=== PATIENT | male | born 1980 | race Caucasian/White ===

== ENCOUNTER 2023-08-05 15:15 | Inpatient (IN) | payer OTHER, SELFPAY ==
--- NOTE | ~2023-08-05 | XR_ITS ---
XR chest 1V portable DATE: 08/16/2023 05:42 INDICATION: Respiratory failure, mechanical ventilation TECHNIQUE: Portable AP chest on 08/16/2023 at 0516 hours COMPARISON: 08/15/2023 portable AP chest at 0536 hours FINDINGS: ET tube in satisfactory position 3.5 cm above lashaun. NG tube in stomach. Right upper extremity PIC catheter tip is situated in the superior vena cava near the superior cavoat rial junction. Right thoracostomy tube. No pneumothorax is evident. Patchy infiltrate of left upper and particularly left mid and lower lung zones. Mild infiltrate or at electasis in the right lower lung. No pleural effusion. IMPRESSION: Increased left lower lung infiltrate and mild infiltrate or atelectasis in the right lowe r lung since 08/15/2023 Reviewed, dictated and finalized at location A. IMPRESSION: Increased left lower lung infiltrate and mild infiltrate or atelect asis in the right lower lung since 08/15/2023
--- NOTE | ~2023-08-05 | XR_ITS ---
EXAMINATION: XR chest 1V portable INDICATION: Respiratory failure TECHNIQUE: Portable AP chest at 0519 hours COMPARISON: 08/09/2023 FINDINGS: The endotracheal tube ends approximately 4.1 cm above the lashaun. The nasogastric tube is f ollowed as far as the stomach. Its tip is beyond the inferior margin of the radiograph. A right upper extremity PICC ends with its tip in the distal superior vena cava. A right chest tube is unchanged i n position. No pleural effusion or pneumothorax. Diffuse interstitial and airspace opacities persist throughout all lung zones with slight improvement. The cardiomediastinal silhouette is stable. IMPRESSION: 1. Diffuse lung disease with slight interval improvement, consistent with pneumonia and/or pulmonary edema. Reviewed, dictated and finalized at location F. IMPRESSION: 1. Diffuse lung disease with slight interval improvement, consistent with pneum onia and/or pulmonary edema.
--- NOTE | ~2023-08-05 | XR_ITS ---
Portable chest x-ray Comparison: 08/14/2023 Clinical History: Respiratory failure Findings: Endotracheal tube, NG tube, right-sided PICC line, and right-sided chest tube are in place . No pneumothorax. There is stable left basilar consolidation. Cardiomediastinal silhouette is stabl e. Bones and soft tissues are unremarkable. Impression: Stable support tubes. No pneumothorax. Stable left basilar consolidation, suspicious for pneumonia. Reviewed, dictated and finalized at location . Impression: Stable support tubes. No pneumothorax. Stable left basilar consolidation, suspicious for pneumonia.
--- NOTE | ~2023-08-05 | XR_ITS ---
EXAMINATION: XR chest 1V portable DATE: 08/19/2023 05:54 INDICATION: Pneumothorax. TECHNIQUE: A single frontal view of the chest was obtained. COMPARISON: Chest single view 08/18/2023 FINDINGS: There are airspace opacities in the mid and lower lung zones. No pleural effusion or pneumo thorax. The heart size is normal. A right upper extremity peripherally inserted central venous cathet er (PICC) is seen with tip at the superior cavoatrial junction. There is a right-sided chest tube in expected position. IMPRESSION: 1. Stable airspace opacities in the mid and lower lung zones, consistent with pneumonia. 2. Right-sided chest tube in expected position. No pneumothorax. Reviewed, dictated and finalized at location A. IMPRESSION: 1. Stable airspace opacities in the mid and lower lung zones, consistent with p neumonia. 2. Right-sided chest tube in expected position. No pneumothorax.
--- NOTE | ~2023-08-05 | XR_ITS ---
EXAMINATION: XR chest 1V portable DATE: 08/11/2023 06:15 INDICATION: Respiratory failure. TECHNIQUE: A single frontal view of the chest was obtained. COMPARISON: Chest single view 08/10/2023, chest CT 08/10/2023 FINDINGS: There are airspace and interstitial opacities in all lung zones bilaterally. No pleural eff usion or pneumothorax. The heart size is normal. The endotracheal tube tip is 4.6 cm above the lashaun . A right upper extremity peripherally inserted central venous catheter (PICC) is seen with tip at th e superior cavoatrial junction. A right-sided chest tube is noted. IMPRESSION: 1. Stable diffuse lung disease, consistent with pulmonary edema versus pneumonia. Reviewed, dictated and finalized at location E. IMPRESSION: 1. Stable diffuse lung disease, consistent with pulmonary edema versus pneumoni a.
--- NOTE | ~2023-08-05 | XR_ITS ---
EXAMINATION: XR chest ET placement INDICATION: Respiratory failure TECHNIQUE: Portable AP chest at 0425 hours COMPARISON: 08/08/2023 FINDINGS: An endotracheal tube has been inserted which ends approximately 3.9 cm above the lashaun. A small right apical pneumothorax has developed. The nasogastric tube is followed as far as the stomach . Its tip is beyond the inferior margin of the radiograph. A right upper extremity PICC ends with its tip in the midsuperior vena cava. Diffuse interstitial and airspace opacities persist throughout all lung zones without significant change. There is no pleural effusion. IMPRESSION: 1. Small right apical pneumothorax, new. These findings were discussed with Lb Galindo RN in the ICU at 0727 hours on 08/09/2023. 2. Support tubes in adequate position. 3. Stable diffuse lung disease, consistent with pneumonia and/or pulmonary edema. Reviewed, dictated and finalized at location F. IMPRESSION: 1. Small right apical pneumothorax, new. These findings were discussed with Darío Galindo RN in the ICU at 0727 hours on 08/09/2023. 2. Support tubes in adequate position. 3. Stable diffuse lung disease, consistent with pneumonia and/or pulmonary adelitakevyn chen
--- NOTE | ~2023-08-05 | XR_ITS ---
EXAMINATION: XR chest-chest tube insert/pos INDICATION: Chest tube placement TECHNIQUE: Portable AP chest at 0915 hours COMPARISON: 0425 hours FINDINGS: A right-sided chest tube has been inserted. The previously described right pneumothorax has nearly completely resolved. There is a minute persistent apical pneumothorax. The endotracheal tube ends approximately 3.5 cm above the lashaun. The nasogastric tube is followed as far as the stomach. I ts tip is beyond the inferior margin of the radiograph. A right upper extremity PICC ends with its ti p in the distal superior vena cava. Diffuse interstitial and airspace opacities persist without signi ficant change. IMPRESSION: 1. Right-sided chest tube inserted with near complete resolution of previously described pneumothorax . 2. Stable diffuse lung disease, consistent with pneumonia and/or pulmonary edema. Reviewed, dictated and finalized at location F. IMPRESSION: 1. Right-sided chest tube inserted with near complete resolution of previously described pneumothorax. 2. Stable diffuse lung disease, consistent with pneumonia and/or pulmonary adelita a.
--- NOTE | ~2023-08-05 | XR_ITS ---
EXAMINATION: XR chest PICC line Exam Date/Time: 08/05/2023 18:55 CDT HISTORY: PICC line Comparison: Same date at 5:16 PM. FINDINGS/IMPRESSION: New right upper extremity PICC terminating in the distal SVC. Unchanged pulmonary opacities. Reviewed, dictated and finalized at location K.
--- NOTE | ~2023-08-05 | XR_ITS ---
EXAMINATION: XR chest 1V portable Exam Date/Time: 08/05/2023 17:15 CDT HISTORY: hypoxia, covid exposure Comparison: 04/05/2010. RESULT: Lines, tubes, and devices: None. Lungs and pleura: Severe patchy and basilar airspace disease affecting the entirety of the left lung . Mild patchy airspace opacities scattered in the right lung. Minimal left costophrenic angle bluntin g. Cardiomediastinal silhouette: Stable. Other: No acute osseous or upper abdominal finding. IMPRESSION: Bilateral airspace disease, severe in the left lung, may represent asymmetric edema or multifocal inf ection. Reviewed, dictated and finalized at location K. IMPRESSION: Bilateral airspace disease, severe in the left lung, may represent asymmetric e donald or multifocal infection.
--- NOTE | ~2023-08-05 | XR_ITS ---
Portable chest x-ray Comparison: 08/12/2023 Clinical History: Respiratory failure Findings: Endotracheal tube, NG tube, and right-sided PICC line are in place. Right-sided chest tube also in place. No definite pneumothorax seen. There is patchy left basilar airspace disease. Cardio mediastinal silhouette is stable. Bones and soft tissues are unremarkable. Impression: Support tubes, as above. No definite pneumothorax. Patchy left basilar airspace disease. Correlate for atelectasis versus pneumonia. Reviewed, dictated and finalized at [facility] [place]. Impression: Support tubes, as above. No definite pneumothorax. Patchy left basilar airspace disease. Correlate for atelectasis versus pneumoni a.
--- NOTE | ~2023-08-05 | XR_ITS ---
Portable chest x-ray Comparison: 08/11/2023 Clinical History: Respiratory failure Findings: Endotracheal tube, NG tube, and right-sided PICC line are in satisfactory positions. Since hazy pulmonary disease is again present. No definite pleural effusion. Right-sided chest tube in darrion ce, with probable minimal right apical pneumothorax. Cardiomediastinal silhouette is stable. Bones a nd soft tissues are unremarkable. Impression: Support tubes, as above. Minimal right apical pneumothorax. Moderate probable pulmonary edema pattern. Reviewed, dictated and finalized at location M. Impression: Support tubes, as above. Minimal right apical pneumothorax. Moderate probable pulmonary edema pattern.
--- NOTE | ~2023-08-05 | XR_ITS ---
EXAMINATION: [id number] INDICATION: OG tube placement TECHNIQUE: Upright view of the abdomen is obtained. COMPARISON: None available FINDINGS: The OG tube ends with its tip in the stomach. The proximal side port appears to be just bey ond the gastroesophageal junction. A small left pneumothorax is noted (result has been communicated t o the ICU). There is diffuse lung disease of the visualized lung bases. IMPRESSION: 1. OG tube with its tip in the stomach. Proximal side port appears to be just beyond the gastroesopha geal junction. 2. Small right pneumothorax, result previously communicated. Reviewed, dictated and finalized at location F. IMPRESSION: 1. OG tube with its tip in the stomach. Proximal side port appears to be just b eyond the gastroesophageal junction. 2. Small right pneumothorax, result previously communicated.
--- NOTE | ~2023-08-05 | XR_ITS ---
EXAMINATION: XR chest 1V portable INDICATION: Tachypnea and shortness of breath TECHNIQUE: Portable AP chest at 1954 hours COMPARISON: 08/05/2023 FINDINGS: There are diffuse interstitial and airspace opacities with interval worsening, particularly in the right lung. No pleural effusion or pneumothorax. A right upper extremity PICC ends with its t ip in the distal superior vena cava. The cardiomediastinal silhouette is normal. IMPRESSION: 1. Diffuse lung disease with interval worsening, consistent with pneumonia and/or pulmonary pulmonary edema. Reviewed, dictated and finalized at location F. IMPRESSION: 1. Diffuse lung disease with interval worsening, consistent with pneumonia and/ or pulmonary pulmonary edema.
--- NOTE | ~2023-08-05 | XR_ITS ---
Portable chest x-ray Comparison: 08/13/2023 Clinical History: Respiratory failure Findings: Endotracheal tube, NG tube, right-sided PICC line, and right-sided chest tube are in place . Suspected tiny right apical pneumothorax present. There is persistent patchy left basilar airspace disease. Cardiomediastinal silhouette is stable. Bones and soft tissues are unremarkable. Impression: Support tubes, as above. Probable tiny right apical pneumothorax. Persistent patchy left basilar airspace disease. Correlate for atelectasis or pneumonia. Reviewed, dictated and finalized at location . Impression: Support tubes, as above. Probable tiny right apical pneumothorax. Persistent patchy left basilar airspace disease. Correlate for atelectasis or p neumonia.
--- NOTE | ~2023-08-05 | XR_ITS ---
XR chest 1V portable 08/08/2023 12:21 Indication: Shortness of breath. Covid positive. Procedure: AP portable chest Comparison: Comparison to multiple prior studies sequentially, with oldest reviewed study dated 04/05. Findings: PICC line tip in the SVC. Heart size normal. Progression of extensive bilateral airspace di sease which may represent pneumonia and/or edema. No significant effusion or pneumothorax. Impression: 1: Progression of diffuse bilateral airspace disease which may represent pneumonia and/or edema. Reviewed, dictated and finalized at location B. Impression: 1: Progression of diffuse bilateral airspace disease which may represent pneumo yola and/or edema.
--- NOTE | ~2023-08-05 | CT_ITS ---
EXAMINATION: CT chest abdomen pelvis wo con DATE: 08/10/2023 09:01 INDICATION: Bacteremia, Back pain . TECHNIQUE: Computed tomography (CT) of the chest, abdomen, and pelvis was performed with 100 mL Omnip aque-350 intravenous contrast. Automated exposure control and iterative reconstruction technique were employed. The dose-length product was 1791.03 mGy-cm. COMPARISON: None FINDINGS: CHEST: Thoracic aorta: No significant dilation or calcification. Lung parenchyma and airways: Diffuse groundglass opacities with scattered areas of somewhat centraliz ed consolidation. Patchy consolidation along the tract of the right chest tube may represent pulmonar y hemorrhage. Thoracic inlet, axillae and chest wall: No thyroid or soft tissue mass. No axillary lymphadenopathy. Endotracheal tube terminating in the mid thoracic trachea. NG tube tip and side port within the stoma ch. Right chest tube, tip near the right apex, with intrathoracic side ports. Right upper extremity P ICC terminates in the SVC. Mediastinum: Lymphadenopathy. Heart and pericardium: Normal heart size. No pericardial effusion. Coronary artery calcifications: . Pleura: Small right pneumothorax. Thoracic bones: No acute osseous finding in the chest. ABDOMEN/PELVIS: Liver: Enlarged. Biliary/Gallbladder: Gallbladder is normal. No bile duct dilation. Pancreas: No mass or duct dilation. Spleen: Enlarged. Focal region of anterior hypodensity. Adrenals:No mass. Kidneys: No suspicious mass, obstructing stone, or hydronephrosis. Bilateral perinephric stranding, i ncreased. GI tract: No small or large bowel dilation. Normal appendix. Mild diverticulosis without diverticulit is. Mesentery/Peritoneum: No ascites, mass, or free air. Retroperitoneum: No mass mild atherosclerotic abdominal aortic and/or arterial calcifications. Pelvis: Harry catheter, balloon is intraluminal. Urinary bladder distention Soft Tissues: Mild body wall edema Abdominopelvic bones: No acute osseous finding in the abdomen/pelvis. IMPRESSION: Diffuse bilateral pulmonary opacities likely representing pulmonary edema overlying somewhat improvin g infectious changes. Changes of ARDS should also be considered in the differential. Small right pneumothorax. Hepatosplenomegaly. Splenic infarct. Increased bilateral perinephric stranding, consider polyp nephritis in the differential. Correlate wi urinalysis. Urinary bladder distention, recommend confirming normal Harry catheter function. Reviewed, dictated and finalized at location K. IMPRESSION: Diffuse bilateral pulmonary opacities likely representing pulmonary edema overl marjorie somewhat improving infectious changes. Changes of ARDS should also be cons idered in the differential. Small right pneumothorax. Hepatosplenomegaly. Splenic infarct. Increased bilateral perinephric stranding, consider polyp nephritis in the diff erential. Correlate with urinalysis. Urinary bladder distention, recommend confirming normal Harry catheter function .
--- NOTE | ~2023-08-05 | XR_ITS ---
XR chest 1V portable DATE: 08/17/2023 05:42 INDICATION: Respiratory failure. Pneumonia. TECHNIQUE: Portable AP chest on 08/17/2023 0529 hours COMPARISON: 08/16/2023 portable AP chest at 0516 hours FINDINGS: No similar change of prominent left lung infiltrate involving particularly left mid and low er lung zones in addition to mild right lower lung infiltrate or atelectasis since 08/16/2023. Right thoracostomy tube is unchanged in position. No pneumothorax is evident. ET and NG tubes in satisfactory position. Right upper extremity PIC catheter tip situated near the valenzuela perior cavoatrial junction. IMPRESSION: Bilateral infiltrates and/atelectasis, left greater than right, without significant aiken e since 08/16/2023 Reviewed, dictated and finalized at location A. IMPRESSION: Bilateral infiltrates and/atelectasis, left greater than right, wit elviraut significant change since 08/16/2023
--- NOTE | ~2023-08-05 | CT_ITS ---
EXAMINATION: CTA chest PE protocol DATE: 08/05/2023 22:22 INDICATION: hypoxia, COVID TECHNIQUE: Computed tomography angiography (CTA) of the chest was performed with 200 mL Omnipaque-350 intravenous contrast timed to evaluate the pulmonary arteries. Exam repeated to obtain better pulmon anca artery opacification. Coronal maximum intensity projection 3D-reconstructions were created by the technologist. The dose-length product (DLP) was 1554.98 mGy-cm. Automated exposure control and itera tive reconstruction technique were employed. COMPARISON: X-ray chest same date. FINDINGS: Lung parenchyma and airways: Multifocal groundglass and consolidative opacities affecting all lobes, most severe in the left upper and lower lobes. Several of the opacifications in the right lung displa y a partial halo or reversed halo sign. Pleura: Small volume left pleural fluid collection. Thoracic inlet, axillae and chest wall: Bilateral symmetric gynecomastia. Thoracic aorta: Normal. Mediastinum: Enlarged mediastinal lymph nodes. Heart and pericardium: Normal. Coronary artery calcifications: Absent. Upper abdomen: Hepatomegaly with steatosis. Splenomegaly. Triangular, pleural-based area of hypoperfu jonna in the anterior spleen. Prominent, but not pathologically enlarged upper abdominal lymph nodes. Bones: No acute osseous finding. Pulmonary arteries: Study quality: Adequate. No pulmonary emboli detected. IMPRESSION: No CT evidence of acute pulmonary embolus. Severe multifocal pneumonia, with findings that can be seen with atypical/viral agents. Mediastinal l ymphadenopathy. Trace left pleural effusion. Hepatomegaly with steatosis. Splenomegaly with a small splenic infarct. Bilateral symmetric gynecomastia. Reviewed, dictated and finalized at location K. IMPRESSION: No CT evidence of acute pulmonary embolus. Severe multifocal pneumonia, with findings that can be seen with atypical/viral agents. Mediastinal lymphadenopathy. Trace left pleural effusion. Hepatomegaly with steatosis. Splenomegaly with a small splenic infarct. Bilateral symmetric gynecomastia.
--- NOTE | ~2023-08-05 | XR_ITS ---
EXAMINATION: XR chest 1V portable DATE: 08/18/2023 05:53 INDICATION: Respiratory failure. Pneumonia. TECHNIQUE: A single frontal view of the chest was obtained. COMPARISON: Chest single view 08/17/2023, chest CT 08/10/2023 FINDINGS: There are airspace opacities in the mid and lower lung zones. No pleural effusion or pneumo thorax. The heart size is normal. There is a right-sided chest tube in expected position. A right upp er extremity peripherally inserted central venous catheter (PICC) is seen with tip at the superior ca voatrial junction. IMPRESSION: 1. Stable airspace opacities in the mid and lower lung zones, consistent with pneumonia. Reviewed, dictated and finalized at location A. IMPRESSION: 1. Stable airspace opacities in the mid and lower lung zones, consistent with p neumonia.
[2023-08-05 15:18] VITALS: BP 118/59; PULSE 117; RESP 20; TEMP 36.8; O2SAT 94
[2023-08-05 16:00] VITALS: BP 142/88; PULSE 115; RESP 20; TEMP 36.8; O2SAT 94
--- NOTE | 2023-08-05 16:37 | ECG_ITS ---
Measurements Intervals [place] Rate: 114 P: 46 MD: 117 QRS: 28 QRSD: 108 T: 51 QT: 329 QTc: 453 Interpretive Statements SINUS TACHYCARDIA WITH SHORT MD INTERVAL ABNORMAL ECG NO PREVIOUS ECG AVAILABLE FOR COMPARISON Electronically Signed On 08-05-2023 20:14:46 CDT by Dewayne Osuna D.O.
--- NOTE | 2023-08-05 16:45 | ED.SOB ---
HPI - SOB/Dyspnea General Chief Complaint: Shortness of Breath/Dyspnea Stated Complaint: SOB-covid exposure Time Seen by Provider: 08/05/23 16:16 Source: patient, EMS, RN notes reviewed and old records reviewed Mode of arrival: EMS Limitations: no limitations History of Present Illness HPI Narrative: This is a 42 year old male with history of DM who presents for evaluation of shortness of breath. PAtient states that his family member tested positive for COVID 1. 5 weeks ago. He states he developed sympoms on Friday or Friday. He states he had headache, decrease tasted and a cough. He reports his headache resolved but he developed shortness of breath 2 days ago. He denies nausea, vomiting chest pain or fever. He reports diarrhea today. He reports history of IV drug use but he states he has been clean for 1 year. He also notes wounds to his legs that have been present for 6 months. Related Data Home Medications Medication Instructions Recorded Confirmed No Home Medications 08/05/23 08/05/23 Allergies Allergy/AdvReac Type Severity Reaction Status Date / Time No Known Allergies Allergy Verified 08/05/23 15:28 Review of Systems Constitutional: Constitutional: Denies weakness ENT: Reports nasal congestion and Reports sore throat Cardiovascular: Cardiovascular: Denies syncope, Denies rapid heart rate, Denies irregular heart rhythm, Denies leg edema and Reports dyspnea Respiratory: Respiratory: Reports chest congestion, Reports cough, Denies hemoptysis, Denies excessive phlegm production and Reports dyspnea Gastrointestinal: Gastrointestinal: Denies abdominal pain, Denies hematochezia, Reports diarrhea and Denies vomiting Genitourinary: Genitourinary: Denies hematuria, Denies dysuria, Denies penile discharge and Denies testicular pain Musculoskeletal: Musculoskeletal: Denies joint swelling, Denies loss of height and Denies muscle weakness Neurologic: Denies syncope, Denies focal weakness and Denies weakness PMFSH Past Medical History Medical History (Updated 08/05/23 @ 23:27 by Sarah Grimes MD) Type 2 diabetes mellitus Social History Social History (Updated 08/05/23 @ 16:46 by Sarah Grimes MD) Smoking status: Current every day smoker Tobacco type: e-cigarettes/vaping Alcohol intake: former Drinks per week: 3 Substance use: former Substance use type: does not use, former substance user and heroin Other substance usage details: quit a year ago Last use: a year ago Lack of Transportation: No Lack of Food: Never True Current Housing: I Have Housing Concerned About Future Housing: No Difficulty Paying Gas/Electric Bills: No Difficulty Paying for Meds: No Currently Unemployed: No Education: High School Diploma/GED Difficulty w/ Childcare or Family Care: No Spiritual care concerns: No Exam Const: General: no acute distress and alert Nutritional Appearance: well nourished Orientation/consciousness: patient oriented x3 HENMT: Head: normal to inspection Face and sinus: normal facial exam Mouth: Yes Normal oral and palatal mucosa present, Yes lip normal and Yes moist mucous membranes Throat: posterior oropharynx normal and uvula midline Eyes: Pupils: Equal, round and reactive pupils present EOM: EOMs intact bilaterally Neck: Neck: normal visual inspection Chest: Chest palpation & inspection: normal inspection of the chest Resp: Effort & Inspection: normal respiratory effort Auscultation: rhonchi throughout Cardio: Rate: tachycardic Rhythm: regular rhythm Heart sounds: no murmurs GI: GI Palp: Yes Soft to palpation, No Tenderness to palpation present (GI), No Guarding due to palpation present (GI) and No Rigid due to palpation Auscultation: normal bowel sounds Skin: Wounds: wounds noted (bilateral lower leg ulcerations) Neuro: General: patient oriented x3, moves all extremities and CN's II-XI intact bilaterally Speech: normal speech Psych: Me
[2023-08-05 16:50] LABS: Basophils Percent Auto 0.2 % (0.2-1.2); Eosinophils Percent Auto 0.3 % (0-4.4); Hematocrit 35.1 % (42.0-52.0); Hemoglobin 10.5 g/dL (14.0-18.0); Immature Granulocyte Absolute 0.17 K/mm3 (0.00-0.031); Lymphocytes Absolute Auto 0.59 K/mm3 (0.9-3.2); Lymphocytes Percent Auto 6.9 % (18.3-44.2); Mean Corpuscular HGB Conc 29.9 g/dl (32-36); Mean Corpuscular Hemoglobin 24.9 pg (26-34); Mean Corpuscular Volume 83.2 fl (80-100); Mean Platelet Volume 11.5 fl (7.4-10.4); Monocytes Absolute Auto 0.3 K/mm3 (0.1-0.6); Monocytes Percent Auto 3.4 % (2.6-8.5); Neutrophils Absolute Auto 7.5 K/mm3 (1.3-6.7); Neutrophils Percent Auto 87.2 % (45.5-73.1); Nucleated Red Blood Cells Perc 0.3 % (0.0-0.2); Platelet Count Result 177 k/mm3 (150-375); Red Blood Count 4.22 M/mm3 (4.6-6.20); Red Cell Distribution Width 15.1 % (11.5-14.5); White Blood Count 8.6 K/mm3 (4.5-10.0)
[2023-08-05 17:03] LABS: Prothrombin Time 13.6 Seconds (11.1-14.7)
[2023-08-05 17:06] LABS: Albumin Level 3.1 g/dL (3.5-5.1); Alkaline Phosphatase 164 U/L (38-126); Anion Gap 19 mmol/L (8-16); Aspartate Amino Transferase 42 U/L (17-59); Bilirubin,Total 4.3 mg/dL (0.2-1.3); Blood Urea Nitrogen 38 mg/dL (9-20); Calcium 9.1 mg/dL (8.4-10.2); Carbon Dioxide 15 mmol/L (22-30); Chloride 101 mmol/L (98-107); Estimated CRCL calculation 73 ml/min; Estimated Glomerular Filt Rate 56; Glucose 103 mg/dL (65-110); Potassium 3.9 mmol/L (3.4-5.0); Sodium 135 mmol/L (137-145)
[2023-08-05 17:10] LABS: Alanine Aminotransferase 33 U/L (6-50); NT Pro B Type Natriuretic Pept 3610 pg/mL (19.9-100)
[2023-08-05 17:15] LABS: Alveolar/Arterial O2 Gradient 95.4 mmHg; Base Excess ABG -7.8 mEq/l (+/-2.0); CRP 19.5 mg/dL (<1.0); Carboxyhemoglobin 0.9 % THb (0-2.0); Fractional Inspired Oxygen 28 %; HCO3 ABG 17.4 mEq/l (22.0-26.0); Methemoglobin ABG 0.2 %THb (0-1.5); Oxygen Content ABG 13.3 %vol (16.0-22.0); Oxygen Saturation ABG 90.8 % (95.0-100.0); Oxyhemoglobin 89.1 % THb (90.0-100.0); PCO2 ABG 34.6 mmHg (35.0-45.0); PO2 ABG 63.4 mmHg (80.0-100.0); PO2 FiO2 Ratio Arterial Blood 2.26 %; Reduced Hemoglobin 9.8 %THb (0-5.0); Total Hemoglobin 10.6 g/dL (12.0-18.0)
[2023-08-05 17:19] LABS: Influenza A QL RT-PCR Negative (Negative); Influenza B QL RT-PCR Negative (Negative); SARS-CoV-2 RNA PCR Positive (Negative)
[2023-08-05 17:19] LABS: Anisocytosis 1+ (NORMAL); Burr Cells 1+ (NORMAL); Large Platelets Present; Microcytosis 1+ (NORMAL); Ovalocytes 1+ (NORMAL); Platelet Estimate Adequate (Adequate); Poikilocytosis 1+ (NORMAL); Schistocytes None Seen (NORMAL)
[2023-08-05 17:31] LABS: Device NASAL CANNULA; Modified Allen's Test Pass; Site Drawn RIGHT RADIAL
--- NOTE | 2023-08-05 18:10 | PC.NURSE ---
multiple IV unsuccessful IV attempts by nursing. Charge nurse called [facility] to play PICC. Consent and PICC line lit at pt room
[2023-08-05] MEDS: LIDOCAINE HCL 1% PF INJ 5 ML VIAL INFILTRATE (19:04)
[2023-08-05] MEDS: REMDESIVIR 200 MG/NS 250 ML 200 MG/250 ML BAG 250 MG IVPB (19:18)
[2023-08-05 19:22] VITALS: BP 126/70; PULSE 116; RESP 20; O2SAT 92
[2023-08-05 20:10] VITALS: BP 134/68; PULSE 112; RESP 18; O2SAT 92
--- NOTE | 2023-08-05 21:05 | PM.IMHP ---
H&P: HPI History of Present Illness Date/Time: 08/05/23 19:00 Chief Complaint: Shortness of breath. Narrative: This is a pleasant 42-year-old male with type 2 diabetes mellitus and history of MRSA skin infection who presented to the emergency department via EMS for evaluation of shortness of breath. The patient provides the following history. He has not felt well for approximately 1 week with upper respiratory symptoms to include cough, shortness of breath, decreased appetite, sweats, and weakness. The last couple of days he has become increasingly short breath and today felt as though he could not feel his lungs up and he called 911. On EMS arrival his SpO2 was 85% on room air. He was placed on oxygen and given a nebulizer treatment en route to the hospital with some improvement in his symptoms. He was afebrile on arrival to the ED. Blood pressures have been stable. He has been persistently in a sinus tachycardia in the 1 teens. SARS-CoV-2 by PCR was positive. Labs were significant for a WBC count of 8.6, hemoglobin 10.5, platelet 177, sodium 135, carbon dioxide 15, anion gap 19, BUN 38, creatinine 0.40, glucose 103, total bilirubin 4.3, AST 42, alkaline phosphatase 164, CRP 19.5, proBNP 3610. Chest x-ray showed bilateral airspace disease, severe in left lung which may represent asymmetric edema or multifocal infection. He is being admitted in this setting for treatment of COVID pneumonia. Review of Systems Review of Systems: Twelve systems were reviewed. No significant sore throat. Mild decrease in taste. No exertional chest pain or pleuritic pain. He does not feel his heart racing. He denies lightheadedness and dizziness. No vomiting or diarrhea. He has mild edema in his legs sometimes which is unchanged. He denies calf pain. No history of venous thromboembolism. He believes his diabetes is fairly well controlled. Except as documented, all other systems were reviewed and are negative. [facility] Past Medical History Medical History Type 2 diabetes mellitus Family History Family History Mother Father Social History Social History (Updated 08/06/23 @ 15:48 by Tram Hester PA-C) Social History: Surrogate medical decision maker: Fatou Luna (spouse) or Ne Rodriguez (mother). Code status: Full code. Smoking status: Current every day smoker Tobacco type: e-cigarettes/vaping Alcohol intake: former Drinks per week: 3 Substance use: former Substance use type: does not use, former substance user and heroin Other substance usage details: quit a year ago Last use: a year ago Lack of Transportation: No Lack of Food: Never True Current Housing: I Have Housing Concerned About Future Housing: No Difficulty Paying Gas/Electric Bills: No Difficulty Paying for Meds: No Currently Unemployed: No Education: High School Diploma/GED Difficulty w/ Childcare or Family Care: No Spiritual care concerns: No Meds Home Medications and Allergies Home Medications Medication Instructions Recorded Confirmed Type No Home Medications 08/05/23 08/05/23 History Allergies Allergy/AdvReac Type Severity Reaction Status Date / Time No Known Allergies Allergy Verified 08/05/23 15:28 Vital Signs Vital Signs - 24 hr 08/05/23 15:18 08/05/23 16:00 08/05/23 19:22 Temperature 98.2 F 98.3 F Pulse Rate 117 H 115 H 116 H Respiratory Rate 20 20 20 Blood Pressure 118/59 L 142/88 H 126/70 Pulse Oximetry 94 94 92 Oxygen Delivery Nasal Cannula Nasal Cannula Oxygen Flow Rate 4 3 08/05/23 20:10 Temperature Pulse Rate 112 H Respiratory Rate 18 Blood Pressure 134/68 Pulse Oximetry 92 Oxygen Delivery Oxygen Flow Rate Exam Narrative: General: Moderately ill-appearing male in the semi-Leija position in bed. Weight: 95.25 kg. BMI: 30.1. HEENT: PE
[2023-08-05 21:13] LABS: Lactic Acid Reflex 10.5 mmol/L (0.7-2.0)
[2023-08-05 21:21] LABS: Alanine Aminotransferase 32 U/L (6-50)
[2023-08-05 21:30] VITALS: BP 161/79; PULSE 112; RESP 24; TEMP 36.2; O2SAT 93; BMI 30.7
--- NOTE | 2023-08-05 21:51 | ADMGEN ---
This patient, Ottoniel Luna, was admitted to IMU Room 202-. Patient/family oriented to hospital policies and general routines including ID bracelet, bed and alarms, visiting hours, pain management, procedures, bathroom and other care routines, personal items, smoking policy, room service/diet, and visiting hours. Information on how to activate the Rapid Response Team has been discussed. Patient/Family are encouraged to report perceived risks to care and to ask questions if they do not understand what they are told or what they should do.
[2023-08-05] MEDS: SODIUM CHLORIDE 0.9% IV 1,000 ML 999 ML IV CONT (21:52)
[2023-08-05 22:40] VITALS: BMI 30.7
[2023-08-05] MEDS: SODIUM CHLORIDE 0.9% IV 1,000 ML 125 ML IV CONT (23:51)
[2023-08-06] VITALS (25 sets, daily range): BP systolic 134–173; BP diastolic 69–91; PULSE 96–121; RESP 19–22; TEMP 36.1–36.8; O2SAT 93–100
[2023-08-06] LABS: Reflex Lactic Acid Yes or No Add Lactic
[2023-08-06 00:58] LABS: Lactic Acid Reflex 9.1 mmol/L (0.7-2.0)
[2023-08-06] MEDS: LACTATED RINGERS 1,000 ML 999 ML IV CONT (01:19)
[2023-08-06] MEDS: AZITHROMYCIN 500 MG/NS 250 ML 500 MG/250 ML BAG 250 MG IVPB ×2 (01:21→22:27)
[2023-08-06 01:28] LABS: Iron 50 ug/dL (49-181)
[2023-08-06 01:30] LABS: Hemoglobin A1C 7.4 % (<5.7)
[2023-08-06 01:32] LABS: Beta-Hydroxybutyrate/Acetoacetate 0.29 mmol/L (0.02-0.27)
[2023-08-06 01:39] LABS: Anion Gap 19 mmol/L (8-16); Blood Urea Nitrogen 35 mg/dL (9-20); Calcium 8.9 mg/dL (8.4-10.2); Carbon Dioxide 16 mmol/L (22-30); Chloride 102 mmol/L (98-107); Estimated CRCL calculation 69 ml/min; Estimated Glomerular Filt Rate 52; Glucose 86 mg/dL (65-110); Potassium 4.2 mmol/L (3.4-5.0); Sodium 137 mmol/L (137-145)
[2023-08-06 01:41] LABS: Percent Iron Saturation 21 % (20-50)
[2023-08-06 02:16] LABS: Vitamin B12 > 1000.0 pg/mL (239-931)
[2023-08-06] MEDS: VANCOMYCIN 1,250 MG/NS 250 ML 1,250 MG/250 ML BAG 166.67 MG IVPB ×2 (02:48→03:13)
[2023-08-06] MEDS: ALBUTEROL SULFATE NEB 2.5 MG/3 ML INH INHALATION ×4 (03:06→20:33)
[2023-08-06] MEDS: IPRATROPIUM BR 0.02% INH SOLN 0.5 MG/2.5 ML VIAL INHALATION ×4 (03:06→20:34)
[2023-08-06] MEDS: CENTRAL LINE FLUSH 10 ML IV PUSH ×4 (03:12→23:39)
[2023-08-06 05:07] LABS: Folic Acid 6.4 ng/mL (2.76->20)
[2023-08-06 05:53] LABS: Appearance Urine Clear (Clear); Bacteria Urine None Seen /hpf; Bilirubin Urine 1+ (Negative); Blood Urine 2+ (Negative); Color Urine Dark Yellow (Yellow); Glucose Urine UA Negative (Negative); Ketones Urine Trace mg/dL (Negative); Leukocyte Esterase Ur Negative LEU/UL (Negative); Nitrate Urine Negative (Negative); Non Pathogenic Casts 0-2; Protein Urine 1+ mg/dL (Negative); RBC Urine 21-50 /hpf (0-2); Specific Grav Ur 1.051 (1.001-1.035); Squamous Epithelial Cell Urine None seen /hpf (Few); WBC Urine 0-5 /hpf
[2023-08-06 05:54] LABS: Add Urine Microscopic? YES
[2023-08-06 08:20] LABS: Glucose Point of Care 121 mg/dl (65-105)
[2023-08-06 08:47] LABS: Hematocrit 29.6 % (42.0-52.0); Hemoglobin 9.1 g/dL (14.0-18.0); Mean Corpuscular HGB Conc 30.7 g/dl (32-36); Mean Corpuscular Hemoglobin 26.1 pg (26-34); Mean Corpuscular Volume 85.1 fl (80-100); Mean Platelet Volume 11.1 fl (7.4-10.4); Platelet Count Result 153 k/mm3 (150-375); Red Blood Count 3.48 M/mm3 (4.6-6.20); Red Cell Distribution Width 15.5 % (11.5-14.5); White Blood Count 12.4 K/mm3 (4.5-10.0)
[2023-08-06 08:58] LABS: Alanine Aminotransferase 19 U/L (6-50); Albumin Level 2.7 g/dL (3.5-5.1); Alkaline Phosphatase 146 U/L (38-126); Anion Gap 13 mmol/L (8-16); Aspartate Amino Transferase 36 U/L (17-59); Bilirubin,Total 2.9 mg/dL (0.2-1.3); Blood Urea Nitrogen 33 mg/dL (9-20); Calcium 8.6 mg/dL (8.4-10.2); Carbon Dioxide 20 mmol/L (22-30); Chloride 102 mmol/L (98-107); Estimated CRCL calculation 74 ml/min; Estimated Glomerular Filt Rate 56; Glucose 127 mg/dL (65-110); INR 1.5; Potassium 4.2 mmol/L (3.4-5.0); Prothrombin Time 18.9 Seconds (11.1-14.7); Sodium 135 mmol/L (137-145)
[2023-08-06 09:06] LABS: Lactate Dehydrogenase 256 U/L (120-246)
[2023-08-06 09:08] LABS: Magnesium 1.8 mg/dL (1.6-2.3)
[2023-08-06 09:14] LABS: Band Neutrophils Percent 24 % (0-6); Basophils Absolute Manual 0.12 K/mm3 (0.0-0.1); Basophils Percent Manual 1 % (0-1); Lymphocytes Absolute Manual 0.49 K/mm3 (1.1-4.5); Lymphocytes Percent Manual 4 % (18-44); Monocytes Absolute Manual 0.12 K/mm3 (0.1-0.90); Monocytes Percent Manual 1 % (3-9); Neutrophils Absolute Manual 11.65 K/mm3 (1.3-6.7); Neutrophils Percent Manual 70 % (46-73); Total Cells Counted 100
[2023-08-06 09:15] LABS: Burr Cells 2+ (NORMAL); Platelet Estimate Adequate (Adequate); Schistocytes None Seen (NORMAL)
[2023-08-06 09:26] LABS: CRP 19.8 mg/dL (<1.0)
[2023-08-06] MEDS: ENOXAPARIN 40 MG/0.4 ML SYRINGE SUB-Q (10:03)
[2023-08-06] MEDS: DEXAMETHASONE 2 MG TABLET 6 MG PO (10:03)
[2023-08-06 11:59] LABS: Glucose Point of Care 143 mg/dl (65-105)
--- NOTE | 2023-08-06 12:45 | PM.IMPN ---
Progress Note: A&P Assessment and Plan (1) Sepsis: Code(s): A41.9 - Sepsis, unspecified organism Status: Acute Assessment and Plan: Treating for concomitant bacterial pneumonia as patient has signs of sepsis with elevated white blood cell count tachycardia fever tachypnea severely elevated lactic acid elevated bilirubin elevated CRP elevated LDH and elevated procalcitonin. Broad spectrum antibiotics on board with interval improvement. Blood cultures preliminarily growing Gram-positive cocci in chains after less than 24 hours. (2) Pneumonia due to COVID-19 virus: Code(s): U07.1 - COVID-19; J12.82 - Pneumonia due to coronavirus disease 2019 Status: Acute Assessment and Plan: Patient is on remdesivir and dexamethasone. Also treating for concomitant bacterial pneumonia as patient has signs of sepsis with elevated white blood cell count tachycardia fever tachypnea severely elevated lactic acid and elevated procalcitonin (3) Acute respiratory failure with hypoxia: Code(s): J96.01 - Acute respiratory failure with hypoxia Status: Acute Assessment and Plan: Patient requiring 7 liters/minute nasal cannula for oxygenation (4) Metabolic acidosis: Code(s): E87.20 - Acidosis, unspecified Status: Acute Assessment and Plan: Lactic acidosis due to sepsis (5) Renal insufficiency: Code(s): N28.9 - Disorder of kidney and ureter, unspecified Status: Acute Assessment and Plan: BUN 33, Cr 1.4, GFR 56--unknown baseline values (6) Type 2 diabetes mellitus: Code(s): E11.9 - Type 2 diabetes mellitus without complications Status: Acute Assessment and Plan: ACHS fingerstick glucose with supplemental insulin. Hgb A1c 7.4 (7) Normocytic anemia: Code(s): D64.9 - Anemia, unspecified Status: Acute Assessment and Plan: B12 is elevated, folate normal. Will add iron studies. Plan Remain in IMU on IV fluids until lactic acid normalizes Daily procalcitonin Iron Studies Repeat lactic acid now and in the morning with AM Daily labs Vancomycin dosing per Pharmacy Echo ordered due to sepsis and respiratory failure with hypoxia Time Spent With Patient Time with patient: 25 - 35 minutes Subjective Date/time seen: 08/06/23 12:45 Interval history: Patient was admitted to the hospital due to pneumonia with COVID low oxygen saturations. Patient requiring 7 liters/minute high-flow nasal cannula to maintain saturations. He reports that he had symptoms about week ago that improved then about the last 3 days has difficulty breathing increased severely. By the time he got here he was barely able to speak in between huffing and puffing. Patient found to be septic with elevated white blood cell count and lactic acid over 10. Procalcitonin was 13. Patient started on broad-spectrum antibiotics after blood cultures. Blood cultures are positive for Gram-positive cocci in chains. Review of Systems Review of Systems: All systems reviewed & are unremarkable except as noted in HPI and below Exam Narrative: General: Moderately ill-appearing male in the semi-Leija position in bed. HEENT: PERRL, EOMI. Sclera anicteric. Tacky mucous membranes. Neck: Supple. No JVD. Respiratory: Mild conversational dyspnea and tachypnea. He is speaking in 5 to 6 word sentences. Currently on 7 L high-flow nasal cannula. Coarse lung sounds heard bilaterally, left greater than right. Cardiovascular: Tachycardic with normal S1-S2. Gastrointestinal: Abdomen is soft, nontender, and nondistended with positive bowel sounds. Skin: Warm and moist. Old scars on the upper and lower extremities from prior skin infections. There are several scabbed ulceration on the lower legs, left greater than right, which he presumes is due to MRSA infection given history of the same. These are draining serous yellow fluid at times Extremities: No cyanosis or clubbing. Mild and chronic a
[2023-08-06 16:11] LABS: Glucose Point of Care 174 mg/dl (65-105)
[2023-08-06] MEDS: SODIUM CHLORIDE 0.9% IV 1,000 ML 100 ML IV CONT (16:20)
[2023-08-06 17:31] LABS: Transferrin 91 mg/dL (206-381)
[2023-08-06 17:46] LABS: Iron 56 ug/dL (49-181)
[2023-08-06 17:55] LABS: Percent Iron Saturation 29 % (20-50)
[2023-08-06] MEDS: INSULIN ASPART (*BKC) 100 UNITS/ML SUB-Q (22:31)
[2023-08-06 22:44] LABS: Glucose Point of Care 231 mg/dl (65-105)
[2023-08-06] MEDS: REMDESIVIR 100 MG/NS 250 ML 100 MG/250 ML BAG 250 MG IVPB (23:21)
[2023-08-07] VITALS (23 sets, daily range): BP systolic 168–181; BP diastolic 87–97; PULSE 88–132; RESP 16–36; TEMP 36.1–36.8; O2SAT 92–100
--- NOTE | 2023-08-07 | ECHO_ITS ---
Patient Info Name: Ottoniel Luna Age: 42 years : 1980 Gender: Male Ht: 70 in Wt: 214 lbs BSA: 2.22 m2 HR: 96 bpm BP: 169 / 93 mmHg Heart Rhythm: Sinus Rhythm Technical Quality: Fair Exam Date: 08/07/2023 11:50 AM Exam Location: [facility] Patient Status: Inpatient Admit Date: 08/05/2023 Staff Ordering Physician: Ryan Gamez APRN Hand Polisher: Jo Patricia RDCS Attending Provider: Demetria Beaulieu DO Referring Physician: Franco SANTOS; Exam Type: CA echo dop color flow w con Study Info Indications - Sepsis Complete two-dimensional, color flow and Doppler transthoracic echocardiogram is performed with contrast to opacify the left ventricle and to improve the deliniation of the left ventricle endocardial borders. Contrast/Agitated Saline Contrast/Ag. Saline: Definity Amount: 2.00 ml Administered By: Jo Patricia RDCS Existing IV Access: Yes IV Access Condition: patent with no signs of infiltration Summary 1. Definity contrast administered improved wall motion interpretation. 2. Left ventricular chamber dimension is moderately enlarged. 3. Left ventricular systolic function is normal, estimated at 55-60%. 4. The left ventricular diastolic function is abnormal. 5. E/e' 12 is mildly elevated. 6. Left atrial chamber dimension is mildly enlarged. Left Ventricle E/e' 12 is mildly elevated. Definity contrast administered improved wall motion interpretation. Left ventricular chamber dimension is moderately enlarged. Left ventricular systolic function is normal, estimated at 55-60%. The left ventricular diastolic function is abnormal. Right Ventricle Right ventricular systolic function is normal and with normal TAPSE 2.1 cm. Right ventricular chamber dimension is normal. Left Atria Left atrial chamber dimension is mildly enlarged. Right Atria Right atrial chamber dimension is normal. Aortic Valve The aortic valve is trileaflet. There is no aortic valve stenosis. There is no aortic valve regurgitation. No aortic valve vegetation visualized. Pulmonic Valve There is no pulmonic regurgitation. No pulmonic valve vegetation visualized. Mitral Valve There is no mitral valve stenosis. There is no mitral valve regurgitation. No mitral valve vegetation visualized. Tricuspid Valve There is no tricuspid valve regurgitation. No tricuspid valve vegetation visualized. Pericardium/Pleural There is no pericardial effusion. Inferior Vena Cava Normal inferior vena cava with >50% collapse upon inspiration consistent with normal right atrial pressure, 5 mmHg. Aorta The aortic root size at the sinus of Valsalva is normal. Left Ventricular Outflow Tract Name Value Normal LVOT 2D LVOT Diameter 1.99 cm LVOT Doppler LVOT Peak Gradient 5 mmHg LVOT Mean Gradient 2 mmHg LVOT VTI 21.22 cm LVOT VTI/AV VTI Ratio 0.79 LVOT Stroke Volume 66.16 ml LVOT CO 6.10 l/min LVOT CI 2.75 L/min/m2 Pulmonic Valve -------
[2023-08-07] MEDS: ALBUTEROL SULFATE NEB 2.5 MG/3 ML INH INHALATION ×5 (02:47→20:20)
[2023-08-07] MEDS: IPRATROPIUM BR 0.02% INH SOLN 0.5 MG/2.5 ML VIAL INHALATION ×5 (02:48→20:20)
[2023-08-07] MEDS: SODIUM CHLORIDE 0.9% IV 1,000 ML 100 ML IV CONT ×3 (03:00→22:00)
[2023-08-07] MEDS: CENTRAL LINE FLUSH 10 ML IV PUSH ×3 (06:06→22:15)
[2023-08-07 06:49] LABS: Hematocrit 27.2 % (42.0-52.0); Hemoglobin 8.3 g/dL (14.0-18.0); Mean Corpuscular HGB Conc 30.5 g/dl (32-36); Mean Corpuscular Hemoglobin 24.6 pg (26-34); Mean Corpuscular Volume 80.5 fl (80-100); Platelet Count Result 145 k/mm3 (150-375); Red Blood Count 3.38 M/mm3 (4.6-6.20); Red Cell Distribution Width 15.2 % (11.5-14.5); White Blood Count 16.3 K/mm3 (4.5-10.0)
[2023-08-07 06:58] LABS: Alanine Aminotransferase 17 U/L (6-50); Albumin Level 2.5 g/dL (3.5-5.1); Alkaline Phosphatase 189 U/L (38-126); Anion Gap 7 mmol/L (8-16); Aspartate Amino Transferase 37 U/L (17-59); Bilirubin,Total 1.6 mg/dL (0.2-1.3); Blood Urea Nitrogen 40 mg/dL (9-20); Calcium 8.4 mg/dL (8.4-10.2); Carbon Dioxide 27 mmol/L (22-30); Chloride 102 mmol/L (98-107); Estimated CRCL calculation 93 ml/min; Estimated Glomerular Filt Rate > 60; Glucose 269 mg/dL (65-110); Lactic Acid Reflex 1.5 mmol/L (0.7-2.0); Potassium 3.7 mmol/L (3.4-5.0); Sodium 136 mmol/L (137-145)
[2023-08-07 06:59] LABS: INR 1.5; Prothrombin Time 18.5 Seconds (11.1-14.7)
[2023-08-07 07:12] LABS: Band Neutrophils Percent 22 % (0-6); Hypochromasia 1+ (NORMAL); Lymphocytes Absolute Manual 0.81 K/mm3 (1.1-4.5); Metamyelocytes Percent 1 %; Neutrophils Absolute Manual 15.32 K/mm3 (1.3-6.7); Neutrophils Percent Manual 72 % (46-73); Platelet Estimate Adequate (Adequate); Schistocytes None Seen (NORMAL); Total Cells Counted 100
[2023-08-07 07:18] LABS: Procalcitonin 7.7 ng/mL
[2023-08-07 07:59] LABS: Glucose Point of Care 283 mg/dl (65-105)
[2023-08-07] MEDS: INSULIN ASPART (*BKC) 100 UNITS/ML SUB-Q ×3 (09:06→21:10)
[2023-08-07] MEDS: DEXAMETHASONE 2 MG TABLET 6 MG PO (09:06)
[2023-08-07] MEDS: ENOXAPARIN 40 MG/0.4 ML SYRINGE SUB-Q (09:07)
[2023-08-07 11:36] LABS: Glucose Point of Care 266 mg/dl (65-105)
[2023-08-07] MEDS: PERFLUTREN LIPID MICROSPHERES 1.5 ML VIAL DILUTED TO 10 ML TOTAL VOLUME IV PUSH (12:30)
--- NOTE | 2023-08-07 12:32 | PM.IMPN ---
Progress Note: A&P Assessment and Plan (1) Pneumonia due to COVID-19 virus: Code(s): U07.1 - COVID-19; J12.82 - Pneumonia due to coronavirus disease 2019 Status: Acute Assessment and Plan: Patient is on remdesivir and dexamethasone. (2) Acute respiratory failure with hypoxia: Code(s): J96.01 - Acute respiratory failure with hypoxia Status: Acute Assessment and Plan: Patient requiring 5 liters/minute nasal cannula for oxygenation (3) Metabolic acidosis: Code(s): E87.20 - Acidosis, unspecified Status: Acute Assessment and Plan: Lactic acidosis due to sepsis, lactic acid has returned normal (4) Renal insufficiency: Code(s): N28.9 - Disorder of kidney and ureter, unspecified Status: Acute Assessment and Plan: Resolved (5) Type 2 diabetes mellitus: Code(s): E11.9 - Type 2 diabetes mellitus without complications Status: Acute Assessment and Plan: ACHS fingerstick glucose with supplemental insulin. Hgb A1c 7.4 (6) Normocytic anemia: Code(s): D64.9 - Anemia, unspecified Status: Acute Assessment and Plan: B12 is elevated, folate normal. Will add iron studies. (7) Sepsis: Code(s): A41.9 - Sepsis, unspecified organism Status: Acute Assessment and Plan: Blood cultures all 4 bottles growing strep pneumoniae, ceftriaxone increased to 1 q.12 hours and vancomycin discontinued. Lactic acid has improved to normal and procalcitonin is improving but still highly elevated Repeat blood cultures ordered Plan Repeat blood cultures ordered antibiotics adjusted based on blood culture results Can transfer out IMU today Time Spent With Patient Time with patient: Greater than 35 minutes Subjective Date/time seen: 08/07/23 12:32 Interval history: Patient reports that he is feeling a little bit better. His work breathing is improved and his oxygen has been able turned to 5 L per minute. Blood cultures did come back positive for strep pneumoniae. Ceftriaxone changed to every 12 hours and vancomycin discontinued. Review of Systems Review of Systems: All systems reviewed & are unremarkable except as noted in HPI and below Exam Narrative: General: Moderately ill-appearing male in the semi-Leija position in bed. HEENT: PERRL, EOMI. Sclera anicteric. Moist mucous membranes. Neck: Supple. No JVD. Respiratory: Mild conversational dyspnea and tachypnea. He is speaking in 5 to 6 word sentences. Currently on 5 L high-flow nasal cannula. Coarse lung sounds heard bilaterally, left lung with less air flow than right Cardiovascular: Tachycardic with normal S1-S2. Gastrointestinal: Abdomen is soft, nontender, and nondistended with positive bowel sounds. Skin: Warm and moist. Old scars on the upper and lower extremities from prior skin infections. There are several scabbed ulceration on the lower legs, left greater than right, which he presumes is due to MRSA infection given history of the same. These are draining serous yellow fluid at times Extremities: No cyanosis or clubbing. Mild and chronic appearing edema of the lower legs. Radial and pedal pulses intact. No palpable knots or cords. Negative Syd sign bilaterally Neurological: Alert and oriented. Cranial nerves 2-12 are grossly intact. No gross focal deficits to casual conversation. Psychiatric: Pleasant and cooperative with normal mood and affect. Judgment and insight intact. Objective Data Vital Signs Vital Signs: Vital Signs - 24 hr 08/06/23 13:29 08/06/23 13:09 08/06/23 13:27 Temperature Pulse Rate 105 H 106 H Respiratory Rate 21 H 22 H Blood Pressure Pulse Oximetry 97 Oxygen Delivery High Flow Nasal Cannula Oxygen Flow Rate 7 08/06/23 16:00 08/06/23 14:00 08/06/23 16:00 Temperature 36.4 C Pulse Rate 100 101 H 102 H Respiratory Rate 20 Blood Pressure 147/79 H Pulse Oximetry 93 Oxygen Delivery Oxygen
--- NOTE | 2023-08-07 12:50 | IVDEFINITY ---
Prior to administration of IV Definity the patient was educated on the risks and benefits of the imaging enhancing agent including potential adverse side effects. The patient verbalized understanding. Allergies were verified. No exclusion criteria were identified and at least one of the following inclusion criteria were met: 1) physician request, 2) patient technically difficult to image (per the [place] [employer] guidelines of two or more segments not discernable within the apical view), or 3) questionable left ventricular function. ?
--- NOTE | 2023-08-07 15:49 | PC.NURSE ---
This patient, Ottoniel Luna, was transferred to [[id number]] on 08/07/23 at 1545. Personal belongings sent with patient. Report given to [Anitra KEENAN ]. Appropriate documentation sent with patient.
[2023-08-07 19:04] LABS: Glucose Point of Care 289 mg/dl (65-105)
--- NOTE | 2023-08-07 19:25 | PC.NURSE ---
1705:This nurse called into room for Pt having difficulty breathing. 02 at 88 to 90 percent. O2 increased from 4 liters to 5 with no improvement. 02 increased from 5 liters to 6. 02 sats only at 91 percent. Call made to hospitalist. One time orders for neb treatments and 02 parameters. Respiratory called. RT and this nurse in patients room for almost 45 minutes. oxygen increased to 8L high flow and venturi mask at 40%. Hospitalist made aware. Pt to be put on airvo and moved back down to IMU 204. Pt aware and states that he feels more comfortable at this time.
[2023-08-07] MEDS: FUROSEMIDE INJ 40 MG/4 ML VIAL 60 MG IV PUSH (19:40)
[2023-08-07 19:56] LABS: Alveolar/Arterial O2 Gradient 601.1 mmHg; Base Excess ABG -1.2 mEq/l (+/-2.0); Fractional Inspired Oxygen 100 %; HCO3 ABG 24.5 mEq/l (22.0-26.0); Oxygen Saturation ABG 92.3 % (95.0-100.0); Oxyhemoglobin 90.7 % THb (90.0-100.0); PCO2 ABG 45.3 mmHg (35.0-45.0); PO2 ABG 66.6 mmHg (80.0-100.0); PO2 FiO2 Ratio Arterial Blood 0.67 %; Total Hemoglobin 10.9 g/dL (12.0-18.0); pH ABG 7.351 (7.350-7.450)
[2023-08-07 19:58] LABS: Modified Allen's Test Pass; Site Drawn RIGHT RADIAL
[2023-08-07 19:59] LABS: Device HIGH FLOW NASAL CANN
--- NOTE | 2023-08-07 20:10 | PC.NURSE ---
Attempted to call Ne Rodriguez, mother, to update her on patient's current condition and transfer back to IMU. No answer and unable to leave voicemail.
[2023-08-07] MEDS: AZITHROMYCIN 250 MG TABLET 500 MG PO (21:30)
[2023-08-07] MEDS: REMDESIVIR 100 MG/NS 250 ML 100 MG/250 ML BAG 250 MG IVPB (22:15)
--- NOTE | 2023-08-07 22:19 | PC.NURSE ---
This patient, Ottoniel Luna, was received from [facility] on 08/07/23 at 2000 after rapid response call. Patient/family oriented to unit policies and routines.
[2023-08-07] MEDS: diphenhydrAMINE HCl CAP 25 MG CAPSULE PO (23:25)
[2023-08-08] VITALS (30 sets, daily range): BP systolic 157–189; BP diastolic 79–104; PULSE 80–121; RESP 20–33; TEMP 36.7–37.6; O2SAT 90–96
[2023-08-08] MEDS: ALBUTEROL SULFATE NEB 2.5 MG/3 ML INH INHALATION ×4 (01:40→19:55)
[2023-08-08] MEDS: IPRATROPIUM BR 0.02% INH SOLN 0.5 MG/2.5 ML VIAL INHALATION ×4 (01:40→19:55)
--- NOTE | 2023-08-08 01:56 | PM.EVENT ---
Event Note Event Note Event Note: 08/08/2023 01:30 I received a call from the patient's nurse with concerns regarding his respiratory status. Chart reviewed. I admitted the patient through the emergency department on 08/05/2023 with acute respiratory failure with hypoxia, pneumonia due to COVID-19, renal insufficiency, and lactic acidosis. He was started on dexamethasone, remdesivir, azithromycin, ceftriaxone, and vancomycin for COVID pneumonia requiring oxygen and suspected concomitant bacterial pneumonia with lactic acidosis. He was also started on IV fluid for dehydration renal insufficiency and remains on 125 mL/hr. Blood cultures came back positive for Streptococcus pneumoniae and vancomycin was discontinued by the daytime hospitalist. He has a history of MRSA screening is still pending. His status seem to be stable and he was downgraded from IMU to the medical floor yesterday. After being on the floor only several hours she had increasing respiratory distress and oxygen requirements and was transferred back to the IMU. Chest x-ray obtained at that time showed worsening diffuse lung disease consistent with a combination of pneumonia and and pulmonary edema. He received furosemide 60 mg IV x1 with excellent response (nurse reports he put out almost 3 L of urine thus far). ABG showed a pH of 7.351, pCO2 45.3, PO2 66.6, and a bicarb of 24.5. He had been on Airvo however he has become increasingly tachypneic and short of breath the last several hours. Nurse called me stating that the patient was tachypneic and very short of breath and that the patient himself reported that he did not think he could do this much longer. Order was given to transfer to the patient to the ICU in anticipation of intubation. In the interim orders were given for BiPAP and he actually feels a lot better breathing pizarro with that support. Respirations have slow down and he is less tachycardic. He seems a lot more comfortable and looks better. On exam he is mildly diaphoretic. He is comfortable on the BiPAP. He has hardly any lung sounds on the left and coarse crackles throughout the right. Heart is tachycardic with regular rate and rhythm. No significant swelling in the extremities. Peripheral pulses intact. He is alert and oriented. Plan for now will be to continue BiPAP with close monitoring. If his condition deteriorates, he will need to be intubated and this was discussed with him at length. His blood pressures have been persistently in the 160s and even into the 180s systolic. Another dose of IV furosemide will be given now. IV fluids are being discontinued. Critical Care Time Critical Care Time: Yes Total Critical Care Time: 40 Attestation: Due to a high probability of clinically significant, life threatening deterioration, the patient required my highest level of preparedness to intervene emergently and I personally spent this critical care time directly and personally managing the patient. This critical care time included obtaining a history; examining the patient; pulse oximetry; ordering and review of studies; arranging urgent treatment with development of a management plan; evaluation of patient's response to treatment; frequent reassessment; and discussions with other providers. It was exclusive of separately billable procedures and treating other patients and teaching time. Please see Assessment and Plan section and the rest of the note for further information on patient assessment and treatment.
--- NOTE | 2023-08-08 02:24 | PC.NURSE ---
This patient, Ottoniel Luna, was received from [IMU room 204 ] on 08/08/23 at 0200. Patient/family oriented to unit policies and routines
--- NOTE | 2023-08-08 02:25 | PC.NURSE ---
Obtained Train of Four on pt in case of intubation. Pt's TOF is 4. Pt states he does not want staff to notify his of ICU transfer at this time. Bipap in use. MELISSA Her in ICU to further evaluate pt.
[2023-08-08] MEDS: FUROSEMIDE INJ 40 MG/4 ML VIAL 20 MG IV PUSH (02:34)
--- NOTE | 2023-08-08 03:18 | PC.NURSE ---
0130 Clara TORRES called and informed of increase in work of breathing. Patient states i cant do this much longer . Orders received for bipap and transfer to ICU 0200 Transferred to ICU 7 on bipap. Tolerating bipap well. Report to Monique KEENAN
[2023-08-08 03:35] LABS: Hematocrit 27.5 % (42.0-52.0); Hemoglobin 8.7 g/dL (14.0-18.0); Mean Corpuscular HGB Conc 31.6 g/dl (32-36); Mean Platelet Volume 10.5 fl (7.4-10.4); Platelet Count Result 153 k/mm3 (150-375); Red Blood Count 3.48 M/mm3 (4.6-6.20); Red Cell Distribution Width 15.3 % (11.5-14.5); White Blood Count 20.7 K/mm3 (4.5-10.0)
[2023-08-08 03:44] LABS: Magnesium 1.7 mg/dL (1.6-2.3)
[2023-08-08 03:45] LABS: Alanine Aminotransferase 19 U/L (6-50); Albumin Level 2.7 g/dL (3.5-5.1); Alkaline Phosphatase 235 U/L (38-126); Anion Gap 4 mmol/L (8-16); Aspartate Amino Transferase 44 U/L (17-59); Blood Urea Nitrogen 43 mg/dL (9-20); Calcium 7.9 mg/dL (8.4-10.2); Carbon Dioxide 32 mmol/L (22-30); Chloride 98 mmol/L (98-107); Estimated CRCL calculation 101 ml/min; Estimated Glomerular Filt Rate > 60; Glucose 321 mg/dL (65-110); Potassium 3.5 mmol/L (3.4-5.0); Sodium 134 mmol/L (137-145)
[2023-08-08 03:46] LABS: INR 1.4; Prothrombin Time 17.4 Seconds (11.1-14.7)
[2023-08-08 04:01] LABS: Band Neutrophils Percent 8 % (0-6); Lymphocytes Absolute Manual 1.03 K/mm3 (1.1-4.5); Lymphocytes Percent Manual 5 % (18-44); Monocytes Absolute Manual 1.24 K/mm3 (0.1-0.90); Monocytes Percent Manual 6 % (3-9); Neutrophils Absolute Manual 18.42 K/mm3 (1.3-6.7); Neutrophils Percent Manual 81 % (46-73); Platelet Estimate Adequate (Adequate); Smudge Cells PRESENT; Total Cells Counted 100
[2023-08-08 04:02] LABS: Anisocytosis 1+ (NORMAL); Hypochromasia 1+ (NORMAL); Schistocytes None Seen (NORMAL)
[2023-08-08] MEDS: CENTRAL LINE FLUSH 10 ML IV PUSH ×3 (06:01→22:01)
--- NOTE | 2023-08-08 07:27 | PC.NURSE ---
Left message for pt's to call for an update (Zo Luna [phone]).
[2023-08-08 07:42] LABS: HIV 1/2 Ab P24 Ag Result Negative (Negative)
[2023-08-08 07:42] LABS: Procalcitonin 4.8 ng/mL
[2023-08-08] MEDS: DEXAMETHASONE 2 MG TABLET 6 MG PO (08:01)
[2023-08-08] MEDS: ACETAMINOPHEN 325 MG TABLET 650 MG PO (08:01)
[2023-08-08] MEDS: INSULIN ASPART (*BKC) 100 UNITS/ML SUB-Q ×4 (08:02→20:12)
[2023-08-08] MEDS: ENOXAPARIN 40 MG/0.4 ML SYRINGE SUB-Q (08:02)
[2023-08-08 08:17] LABS: Glucose Point of Care 280 mg/dl (65-105)
[2023-08-08] MEDS: FUROSEMIDE INJ 40 MG/4 ML VIAL IV PUSH (09:31)
[2023-08-08] MEDS: LORazepam (*CRX) 0.5 MG TABLET PO (09:31)
[2023-08-08] MEDS: amLODIPine BESYLATE 5 MG TABLET PO (09:31)
[2023-08-08 11:16] LABS: Glucose Point of Care 205 mg/dl (65-105)
[2023-08-08] MEDS: LIDOCAINE 5% PATCH 1 PATCH TRANSDERM (12:10)
[2023-08-08] MEDS: hydrALAZINE HCL 20 MG/ML VIAL 10 MG IV PUSH (12:10)
[2023-08-08] MEDS: LORazepam (*CRX) 1 MG TABLET PO ×2 (12:10→18:07)
[2023-08-08] MEDS: MORPHINE SULFATE (*CRX) 2 MG/ML INJ IV PUSH (12:45)
[2023-08-08] MEDS: ONDANSETRON INJ 4 MG/2 ML VIAL IV PUSH (12:45)
[2023-08-08] MEDS: oxyCODONE HCL (*CRX) 5 MG TAB IR PO ×3 (13:30→22:07)
[2023-08-08 16:04] LABS: Glucose Point of Care 218 mg/dl (65-105)
--- NOTE | 2023-08-08 16:53 | PM.IMPN ---
Progress Note: A&P Assessment and Plan (1) Pneumonia due to COVID-19 virus: Code(s): U07.1 - COVID-19; J12.82 - Pneumonia due to coronavirus disease 2018 Status: Acute (2) Acute respiratory failure with hypoxia: Code(s): J96.01 - Acute respiratory failure with hypoxia Status: Acute (3) Essential hypertension: Code(s): I10 - Essential (primary) hypertension Status: Acute Plan # COVID-19 pneumonia # strep pneumonaie BCx -COVID-19 positive -on BiPAP 12/8, will trial Airvo 45L, 100%FiO2 and wean as tolerated -treatment plan: continue d3 remdesivir, decadron -ABx: rocephin 2g (BCx positive for GPC) -antiemetic Zofran -anxiety: Continue as needed Ativan establish -continue diuresis 40 mg IV Lasix daily -consult linoleum floor layer # essential hypertension -patient has significant elevated blood pressure up to 180 systolic -starting amlodipine 5 mg daily -as needed hydralazine # congestive heart failure, HFpEF -patient has lower extremity edema - echo 08/07/23: EF 55-60%, abnormal LV diastolic function -appears to be doing well with diuresis, will continue -IV diuresis, strict I&O # chronic back pain - Exacerbated by patient being stuck in bed, will give as needed oxycodone, Tylenol, lidocaine, breakthrough morphine Diet: diabetic DVT prophylaxis: lovenox Code status: Full code Disposition: Continue monitoring in ICU, likely home in >3 days Subjective Date/time seen: 08/08/23 16:53 Interval history: Patient seen examined. He is very anxious about his COVID diagnosis. He is complaining of significant back pain as he has longstanding back issues and has been stuck in bed for several days now. Will give him lidocaine patch for his back as well as oxycodone. For the anxiety will give him as needed Ativan. Patient is only on 60% FiO2 and will to physician from BiPAP to Airvo. He is diuresing well and responding to the diuretic. He denies fever, chills, nausea vomiting diarrhea. Endorses dyspnea and anxiety. We have adjusted the BiPAP to 12/8 to large tidal volumes. Review of Systems Review of Systems: 10 point ROS complete, negative other than what is specified in HPI. Exam Narrative: - GENERAL: Anxious male in respiratory distress. - EYES: EOMI. Anicteric. - HENT: Moist mucous membranes. - LUNGS: Clear in apices anteriorly. Breathing with BiPAP - CARDIOVASCULAR: Regular rate and rhythm. No murmur. - ABDOMEN: Soft, non-tender and non-distended. No palpable masses. - EXTREMITIES: No edema. Peripheral pulses 2+. Non-tender. - NEUROLOGIC: No focal neurological deficits. CN II-XII grossly intact. - PSYCHIATRIC: Awake, Alert and oriented x 3. Appropriate mood and affect. - SKIN: No rashes or lesions. Warm. - LYMPH: No cervical lymphadenopathy. Objective Data Vital Signs Vital Signs: Vital Signs - 24 hr 08/07/23 18:30 08/07/23 20:52 08/07/23 20:20 Temperature Pulse Rate 106 H 116 H 121 H Respiratory Rate 20 24 H Blood Pressure Pulse Oximetry 95 Oxygen Delivery High Flow Therapy with Na Oxygen Flow Rate 45 Fraction of Inspired Oxygen 65 08/07/23 20:30 08/07/23 20:15 08/07/23 20:00 Temperature 36.6 C Pulse Rate 116 H 132 H Respiratory Rate 22 H 36 H Blood Pressure 181/97 H Pulse Oximetry 94 92 Oxygen Delivery High Flow Therapy with Na Oxygen Flow Rate 45 Fraction of Inspired Oxygen 65 08/07/23 20:15 08/07/23 23:37 08/08/23 02:24 Temperature 36.6 C 36.6 C 36.7 C Pulse Rate 116 H 110 H 105 H Respiratory Rate 22 H 20 27 H Blood Pressure 181/97 H 168/87 H 185/97 H Pulse Oximetry 95 93 91 Oxygen Delivery Oxygen Flow Rate Fraction of Inspired Oxygen 08/08/23 02:00 08/08/23 01:50 08/08/23 01:40 Temperature Pulse Rate 105 H 109 H 109 H Respiratory Rate 26 H 24 H Blood Pressure Pulse Oximetry 95 Oxygen Delivery BiPAP Oxygen Flow Rate Fraction of Inspired Oxygen 08/08/23 01:55 08/08/23
[2023-08-08 20:25] LABS: Glucose Point of Care 213 mg/dl (65-105)
[2023-08-08 22:01] LABS: Pneumococcal Antigen Urine Not Detected (Not Detected)
[2023-08-08] MEDS: REMDESIVIR 100 MG/NS 250 ML 100 MG/250 ML BAG 250 MG IVPB (22:01)
[2023-08-09] VITALS (82 sets, daily range): BP systolic 70–217; BP diastolic 43–116; PULSE 90–127; RESP 25–41; TEMP 36.6–38.2; O2SAT 87–100
[2023-08-09] MEDS: LORazepam (*CRX) 1 MG TABLET PO (00:48)
[2023-08-09] MEDS: MORPHINE SULFATE (*CRX) 2 MG/ML INJ IV PUSH (01:18)
[2023-08-09] MEDS: ALBUTEROL SULFATE NEB 2.5 MG/3 ML INH INHALATION ×4 (01:55→20:13)
[2023-08-09] MEDS: IPRATROPIUM BR 0.02% INH SOLN 0.5 MG/2.5 ML VIAL INHALATION ×4 (01:55→20:13)
[2023-08-09] MEDS: oxyCODONE HCL (*CRX) 5 MG TAB IR 10 MG PO (02:49)
[2023-08-09] MEDS: ETOMIDATE 20 MG/10 ML AMPUL IV PUSH (04:07)
[2023-08-09] MEDS: SUCCINYLCHOLINE CHLORIDE 20 MG/ML 10 ML VIAL 100 MG IV PUSH (04:08)
[2023-08-09] MEDS: FENTANYL 2,500MCG/NS250ML(*CRX 2,500 MCG/250 ML BAG IV CONT (04:20)
[2023-08-09] MEDS: PROPOFOL IV EMULSION 100 ML 2.92 MG IV CONT (04:21)
[2023-08-09] MEDS: MIDAZOLAM 100MG/NS 100ML(*CRX) 100 MG/100 ML BAG 10 MG IV CONT (04:40)
[2023-08-09] MEDS: MIDAZOLAM HCL (*CRX) 2 MG/2 ML VIAL 4 MG IV PUSH ×3 (04:48→05:15)
[2023-08-09] MEDS: ROCURONIUM BROMIDE 50 MG/5 ML VIAL IV PUSH ×3 (04:50→09:42)
--- NOTE | 2023-08-09 05:17 | PC.NURSE ---
updated to current condition. would appreciate a call from Dr Freeman today.
[2023-08-09] MEDS: CENTRAL LINE FLUSH 10 ML IV PUSH ×3 (05:18→20:38)
[2023-08-09] MEDS: RAPID SEQUENCE INTUBATION KIT 1 EACH (05:18)
[2023-08-09] MEDS: SODIUM CHLORIDE 0.9% IV 1,000 ML 999 ML IV CONT (05:18)
[2023-08-09 05:48] LABS: Basophils Absolute Auto 0.1 K/mm3 (0.0-0.1); Basophils Percent Auto 0.3 % (0.2-1.2); Eosinophils Percent Auto 0.1 % (0-4.4); Hematocrit 26.5 % (42.0-52.0); Hemoglobin 8.6 g/dL (14.0-18.0); Immature Granulocyte Absolute 0.65 K/mm3 (0.00-0.031); Immature Granulocyte Percent A 3.1 % (0-0.5); Lymphocytes Absolute Auto 1.57 K/mm3 (0.9-3.2); Lymphocytes Percent Auto 7.5 % (18.3-44.2); Mean Corpuscular HGB Conc 32.5 g/dl (32-36); Mean Corpuscular Hemoglobin 26.7 pg (26-34); Mean Corpuscular Volume 82.3 fl (80-100); Mean Platelet Volume 10.4 fl (7.4-10.4); Monocytes Absolute Auto 0.5 K/mm3 (0.1-0.6); Monocytes Percent Auto 2.4 % (2.6-8.5); Neutrophils Absolute Auto 18.2 K/mm3 (1.3-6.7); Neutrophils Percent Auto 86.6 % (45.5-73.1); Platelet Count Result 144 k/mm3 (150-375); Red Blood Count 3.22 M/mm3 (4.6-6.20); Red Cell Distribution Width 15.2 % (11.5-14.5)
[2023-08-09 05:56] LABS: INR 1.5; Prothrombin Time 18.6 Seconds (11.1-14.7)
[2023-08-09 05:56] LABS: Triglycerides 284 mg/dL (<150)
[2023-08-09 05:56] LABS: Alveolar/Arterial O2 Gradient 599.3 mmHg; Base Excess ABG 8.6 mEq/l (+/-2.0); Carboxyhemoglobin 0.3 % THb (0-2.0); Fractional Inspired Oxygen 100 %; HCO3 ABG 34.2 mEq/l (22.0-26.0); Methemoglobin ABG 0.4 %THb (0-1.5); Oxygen Content ABG 12.1 %vol (16.0-22.0); Oxygen Saturation ABG 91.4 % (95.0-100.0); Oxyhemoglobin 88.4 % THb (90.0-100.0); PO2 ABG 60.7 mmHg (80.0-100.0); PO2 FiO2 Ratio Arterial Blood 0.61 %; Reduced Hemoglobin 10.9 %THb (0-5.0); Total Hemoglobin 9.7 g/dL (12.0-18.0); pH ABG 7.427 (7.350-7.450)
[2023-08-09 05:58] LABS: Device VENTILATOR; Modified Allen's Test Pass; Site Drawn RIGHT RADIAL
[2023-08-09 05:58] LABS: Alanine Aminotransferase 17 U/L (6-50); Albumin Level 2.4 g/dL (3.5-5.1); Alkaline Phosphatase 176 U/L (38-126); Anion Gap 5 mmol/L (8-16); Aspartate Amino Transferase 48 U/L (17-59); Bilirubin,Total 0.9 mg/dL (0.2-1.3); Blood Urea Nitrogen 34 mg/dL (9-20); Calcium 7.4 mg/dL (8.4-10.2); Carbon Dioxide 36 mmol/L (22-30); Chloride 93 mmol/L (98-107); Estimated CRCL calculation 112 ml/min; Estimated Glomerular Filt Rate > 60; Glucose 193 mg/dL (65-110); Potassium 3.3 mmol/L (3.4-5.0); Sodium 134 mmol/L (137-145)
[2023-08-09 05:59] LABS: Arterial Blood Gas PEEP 12 cmH2O; Arterial Blood Gas Tidal Volume 530 ml; Arterial Blood Gas Vent Mode CMV; Arterial Blood Gas Ventilator rate 28 /MIN
[2023-08-09] MEDS: NOREPINEPHRINE 8 MG/D5W 250 ML 8 MG/250 ML BAG 9.38 MG IV CONT (06:15)
[2023-08-09 06:16] LABS: Procalcitonin 2.5 ng/mL
[2023-08-09 06:37] LABS: Legionella pneumophila Ag Ur Not Detected (Not Detected)
[2023-08-09] MEDS: PROPOFOL IV EMULSION 100 ML 26.24 MG IV CONT ×5 (07:21→22:20)
--- NOTE | 2023-08-09 08:24 | P.OP_ITS ---
Procedures Intubation Intubation Date: 08/09/23 Intubation Time: 04:00 Consent: Verbal consent obtained from the patient. A pre-procedural Time-Out was completed immediately before starting the procedure and confirmed: Patient Identification, Site, Procedure, Patient Position and the Availability of Requisite Equipment: Yes Sedative: etomidate Mg given: 20 Paralytic: succinylcholine Mg given: 100 Laryngoscope: fiber optic video scope ET tube size: 7.5 Tube secured depth (cm): 25 Tube secured location: teeth Tube placement confirmation: visualized tube passing through cords, equal breath sounds bilaterally, no breath sounds over epigastrium and confirmation by capnometry Patient tolerated procedure: well Intubation complications: none Additional comments: S: I was called to the bedside by ICU staff for intubation of this patient for respiratory distress and hypoxic respiratory failure secondary to COVID. ICU nurses consulted with affiliate marketing manager, Dr. Freeman who recommended intubation and had recommendations for vent settings and sedation. O: On evaluation, the patient is tachypneic on BiPAP with faint rales noted in the bilateral lung pickard. The patient was tachycardic with a regular rhythm. The patient is noted on BiPAP and appears to be in moderate respiratory distress. A/P: The patient was intubated for acute hypoxic respiratory failure. Please see procedure note above.
--- NOTE | 2023-08-09 09:20 | WPDCN ---
Assessment and Plan Assessment and plan (1) Spontaneous pneumothorax: Code(s): J93.83 - Other pneumothorax Status: Acute Assessment and Plan: Patient required emergent intubation this morning due to deteriorating respiratory status and respiratory failure. He was placed on a high PEEP and developed a spontaneous right pneumothorax. Chest x-ray shows it to be approximately 25%. He was relatively unstable in the intensive care unit and so ice emergent right chest tube was placed. Postprocedure chest x-ray shows the right lung to be almost fully re-expanded. Chest to be managed by ICU physician. (2) Pneumonia due to COVID-19 virus: Code(s): U07.1 - COVID-19; J12.82 - Pneumonia due to coronavirus disease 2019 Status: Acute Assessment and Plan: Resulting in acute respiratory failure and need for ventilatory support. Spontaneous right pneumothorax developed likely due to barotrauma from high PEEP. Management as per pig breeder. HPI Data of Consult Date/Time: 08/09/23 09:20 Requesting Physician: Juan Lui DO Primary Care Provider: Ronald Hinkle MD Consult Narrative Reason for consult: Spontaneous right pneumothorax, the for stat chest tube placement. Narrative: Ottoniel Luna is a 42 year old male who was admitted to the hospital couple days ago with respiratory symptoms and has gradually worsened. He is COVID positive. Also has pneumonia. Was transferred to the intensive care unit due to worsening respiratory status and this morning was emergently intubated. He was placed on high PEEP and a chest x-ray showed a spontaneous right pneumothorax approximately 25%. I was asked to place an emergent chest tube as the patient requires continue all account of ventilation with high PEEP and he is on 2 pressors and is critically ill. Review of Systems Review of Systems: Unobtainable as patient is intubated and sedated. [facility] Past Medical History Medical History Type 2 diabetes mellitus Family History Family History Mother Father Social History Social History Social History: Surrogate medical decision maker: Fatou Luna (spouse) or Ne Rodriguez (mother). Code status: Full code. Smoking status: Current every day smoker Tobacco type: e-cigarettes/vaping Alcohol intake: former Drinks per week: 3 Substance use: former Substance use type: does not use, former substance user and heroin Other substance usage details: quit a year ago Last use: a year ago Lack of Transportation: No Lack of Food: Never True Current Housing: I Have Housing Concerned About Future Housing: No Difficulty Paying Gas/Electric Bills: No Difficulty Paying for Meds: No Currently Unemployed: No Education: High School Diploma/GED Difficulty w/ Childcare or Family Care: No Spiritual care concerns: No Meds Home Medications and Allergies Home Medications Medication Instructions Recorded Confirmed Type No Home Medications 08/05/23 08/05/23 History Allergies Allergy/AdvReac Type Severity Reaction Status Date / Time No Known Allergies Allergy Verified 08/05/23 15:28 Vital Signs Vital Signs - 24 hr 08/08/23 10:00 08/08/23 10:17 08/08/23 11:40 Temperature Pulse Rate 103 H 111 H 100 Respiratory Rate 25 H 23 H Blood Pressure 162/79 H Pulse Oximetry 94 94 Oxygen Delivery BiPAP Oxygen Flow Rate Fraction of Inspired Oxygen 08/08/23 12:00 08/08/23 14:00 08/08/23 12:00 Temperature 37.4 C Pulse Rate 104 H 111 H 104 H Respiratory Rate 27 H Blood Pressure 188/95 H Pulse Oximetry 95 Oxygen Delivery Oxygen Flow Rate Fraction of Inspired Oxygen 08/08/23 14:00 08/08/23 12:00 08/08/23 14:30 Temperature 37.5 C Pulse Rate 111 H 104
--- NOTE | 2023-08-09 09:29 | P.OP_ITS ---
Procedure Note - Detailed Date of Procedure 08/09/23 Pre-op Diagnosis Acute Respiratory Failure, COVID+, spontaneous right pneumothorax Post-op Diagnosis Same Procedure Performed Emergent right thoracostomy tube placement. Surgeon Dre Cornejo MD Anesthesia General Indications Patient is a 42-year-old gentleman who has COVID pneumonia and was emergently intubated this morning due to respiratory failure. He was placed on high PEEP since likely developed a spontaneous right pneumothorax due to barotrauma. He is relatively unstable intensive care unit and requires placement of the emergent right thoracostomy tube. Findings Approximate 25% right pneumothorax. Description of Procedure Consent was obtained and the patient was already in the intensive care unit supine being bagged and intubated. The right anterior lateral chest was then prepped and draped usual sterile fashion. At the 5th intercostal space in the midaxillary line a transverse incision was made with a scalpel and then a large pea on clamp was used to enter the right chest cavity over the top of the 5th rib. The clamp was spread out widely to decompress the right pneumothorax. A 20 Australian right thoracostomy tube was then placed into the right chest cavity. The chest tube was then secured to the skin level with a 0 silk suture. He was then dressed with Vaseline gauze 4x4 gauze and foam tape. The chest tube was placed to 20cm of Pleur-evac suction. The patient tolerated the procedure well no complications. All sponges, needles, and instrument counts were correct at the end procedure. EBL was _20__cc. Patient remained intensive care unit on ventilatory support. Postprocedure chest x-ray showed nearly complete re-expansion of the right long with the right chest to tracking towards the apex of the right chest cavity. Implants None Estimated Blood Loss 20 Urine Output 3,300 Drains Yes (20 Australian right thoracostomy tube right chest) Packing No Pathology None sent Complications No immediate complications Condition Critical Disposition ICU [facility] Billing Surgery - Charge Forward: Surgery Billing
--- NOTE | 2023-08-09 09:33 | WPDCNINT ---
Assessment and Plan Assessment and plan (1) Acute respiratory failure with hypoxia: Code(s): J96.01 - Acute respiratory failure with hypoxia Status: Acute Assessment and Plan: Acute hypoxic Respiratory failure secondary to combination of COVID pneumonia, bacterial pneumonia from Streptococcus pneumoniae and component of congestive heart failure His COVID PCR was positive. His blood culture positive for Streptococcus pneumoniae and he had elevated procalcitonin level. His BNP was also elevated Through the hospital course patient's hypoxia has been gradually getting worse as he was on nasal cannula presentation later moved to Airvo and was BiPAP. Overnight she deteriorated and was intubated. Post intubation patient remained hypoxic with low saturation requiring high PEEP. He was a synchronous with the ventilator and required neuromuscular jessee. 08/09 morning he developed spontaneous pneumothorax and a right-sided chest tube was placed-see below Vent settings reviewed. He is currently on 100%. I will decrease the tidal volume to 450 mL. i have increased the PEEP 15 and I will prone the patient and wean down FiO2. Repeat ABG Add bronchodilator Continue dexamethasone and Remdesivir Hold treatment with immunomodulators due to for strep pneumo pneumonia and bacteremia (2) Spontaneous pneumothorax: Code(s): J93.83 - Other pneumothorax Status: Acute Assessment and Plan: Patient developed spontaneous pneumothorax post intubation likely from barotrauma. Post intubation chest x-ray was negative but this morning the chest x-ray showed small right pneumothorax. Patient was on 12 of PEEP and I reduce the PEEP to 8 temporarily. I spoke to General surgery consulted them for chest tube placement. Patient's saturation dropped on lowering his PEEP. Patient desaturated and was bag ventilated. I was unable to find and pneumothorax kit in ICU procedure cart, equipment room or in the ER. I requested a pneumothorax kit from [facility]. I used thalquick kit but was unable to aspirate any air with a needle on multiple times in the right mid axillary line in 2nd and 3rd intercostal space. By this time the general surgeon arrived and placed a open thoracostomy tube. Chest x-ray was repeated and showed re-expansion of the lung. Patient was bag ventilated to get saturation above 90% and then placed on ventilator. Be increased to 15 (3) Sepsis: Code(s): A41.9 - Sepsis, unspecified organism Status: Acute Assessment and Plan: Patient presented with picture of pneumonia with positive COVID PCR and procalcitonin level. His blood culture came back positive for Streptococcus pneumoniae. Patient may have had COVID and then developed secondary bacterial infection Patient was initially on vancomycin Rocephin azithromycin which was changed to Rocephin daily Repeat blood cultures are negative till now Continue Rocephin 2 g IV q.day Post intubation patient has been hypotensive and is Levophed Patient was given 1 L fluid bolus post intubation and I will give additional 500 mL Patient does have history of IV drug abuse but his HIV screen was negative (4) Type 2 diabetes mellitus: Code(s): E11.9 - Type 2 diabetes mellitus without complications Status: Acute Assessment and Plan: Change sliding scale to q.4 hours (5) Pneumonia due to COVID-19 virus: Code(s): U07.1 - COVID-19; J12.82 - Pneumonia due to coronavirus disease 2019 Status: Acute Assessment and Plan: See above (6) Pneumonia: Code(s): J18.9 - Pneumonia, unspecified organism Status: Acute Assessment and Plan: See above (7) Bacteremia: Code(s): R78.81 - Bacteremia Status: Acute Assessment and Plan: See above (8) Back pain: Code(s): M54.9 - Dorsalgia, unspecified Status: Acute Assessment and Plan: Patient had been complaining of back pain since admission and s
[2023-08-09] MEDS: CISATRACURIUM BESYLATE 20 MG/10 ML VIAL 12 MG IV PUSH (09:43)
[2023-08-09] MEDS: CISATRACURIUM BESYLATE 200 MG in DEXTROSE 5% 80 ML 8.51 ML IV CONT ×2 (09:44→20:24)
[2023-08-09] MEDS: SODIUM CHLORIDE 0.9% IV 500 ML IV CONT (10:16)
[2023-08-09] MEDS: MINERAL OIL/WHITE PETROLATUM OINTMENT 1 APPLIC EACH EYE ×2 (10:22→20:37)
[2023-08-09] MEDS: ENOXAPARIN 40 MG/0.4 ML SYRINGE SUB-Q (10:22)
[2023-08-09] MEDS: DEXAMETHASONE 2 MG TABLET 6 MG FEED TUBE (10:22)
[2023-08-09] MEDS: PANTOPRAZOLE SODIUM IV 40 MG VIAL IV PUSH (10:22)
[2023-08-09] MEDS: POTASSIUM CHLORIDE 20 MEQ PACKET (FOR LIQUID) 40 MEQ FEED TUBE (10:23)
[2023-08-09] MEDS: cefTRIAXone 2 GM/NS 100 ML 2 GM/100 ML BAG IVPB (10:23)
--- NOTE | 2023-08-09 10:58 | PC.NURSE ---
Patient proned at 0925.
[2023-08-09 11:06] LABS: Glucose Point of Care 175 mg/dl (65-105)
[2023-08-09 11:12] LABS: Base Excess ABG 5.4 mEq/l (+/-2.0); Fractional Inspired Oxygen 85 %; HCO3 ABG 33.1 mEq/l (22.0-26.0); Oxygen Saturation ABG 98.3 % (95.0-100.0); Oxyhemoglobin 96.4 % THb (90.0-100.0); PO2 FiO2 Ratio Arterial Blood 1.56 %; Total Hemoglobin 9.4 g/dL (12.0-18.0); pH ABG 7.302 (7.350-7.450)
[2023-08-09 11:13] LABS: Arterial Blood Gas PEEP 15 cmH2O; Arterial Blood Gas Tidal Volume 450 ml; Arterial Blood Gas Vent Mode CMV; Arterial Blood Gas Ventilator rate 28 /MIN; Device VENTILATOR; Modified Allen's Test Pass; PCO2 ABG 68.5 mmHg (35.0-45.0); Site Drawn LEFT RADIAL
[2023-08-09] MEDS: INSULIN ASPART (*BKC) 100 UNITS/ML SUB-Q ×3 (12:55→20:37)
[2023-08-09 13:23] LABS: Glucose Point of Care 202 mg/dl (65-105)
[2023-08-09 13:58] LABS: CRP 5.1 mg/dL (<1.0)
--- NOTE | 2023-08-09 14:10 | PM.IMPN ---
Progress Note: A&P Assessment and Plan (1) Bacteremia: Code(s): R78.81 - Bacteremia Status: Acute (2) Pneumonia: Code(s): J18.9 - Pneumonia, unspecified organism Status: Acute (3) Spontaneous pneumothorax: Code(s): J93.83 - Other pneumothorax Status: Acute (4) Essential hypertension: Code(s): I10 - Essential (primary) hypertension Status: Acute (5) Sepsis: Code(s): A41.9 - Sepsis, unspecified organism Status: Acute (6) Pneumonia due to COVID-19 virus: Code(s): U07.1 - COVID-19; J12.82 - Pneumonia due to coronavirus disease 2019 Status: Acute Plan # multifocal pneumonia with COVID-19 and strep pneumonaie bacteremia # septic shock secondary to pneumonia -COVID-19 positive. Blood culture positive for strep pneumonia -intubated overnight 4 AM 08/09/23 -in prone position, paralyzed on Nimbex -sedation: Propofol, Versed, fentanyl -vasopressors: Levophed -treatment plan: continue d4 remdesivir, decadron -ABx: rocephin 2g (BCx positive for GPC) -antiemetic Zofran -anxiety: Continue as needed Ativan establish -appreciate electromedical service engineer consultation recommendations and management # spontaneous pneumothorax -right-sided chest tube placed by general surgeon -likely secondary to high PEEP from ventilator # essential hypertension -was hypertensive, started amlodipine however now hypotensive from sedation # congestive heart failure, HFpEF - patient has lower extremity edema - echo 08/07/23: EF 55-60%, abnormal LV diastolic function - he has responded well to the diuresis, now stopping diuretic with shock - repleting potassium as needed # chronic back pain - Exacerbated by patient being stuck in bed, will give as needed oxycodone, Tylenol, lidocaine, breakthrough morphine - when more stable may consider obtaining imaging for evaluation for diskitis considering bacteremia Diet:? Tube feed DVT prophylaxis:?lovenox GI prophylaxis: Protonix Code status:??Full code Disposition:??Continue monitoring in ICU, likely home in >3 days Subjective Date/time seen: 08/09/23 14:10 Interval history: Patient seen examined. Patient is intubated overnight with worsening respiratory failure. His spontaneous right pneumothorax and chest tube was placed. Patient requiring significant ventilator support and prone positioning. Started paralytic. Stopping diuretic with patient now in shock, started levophed. Patient also being treated for Streptococcus pneumonia bacteremia. I discussed case with electromedical service engineer. Review of Systems Review of Systems: Unable to obtain patient intubated and sedated Exam Narrative: - GENERAL: Intubated male in prone position. - EYES: EOMI. Anicteric. - HENT: ET tube in place, OG tube in place - LUNGS: Diminished lung sounds, shallow, synchronous with ventilator. Right chest tube in place - CARDIOVASCULAR: Unable to auscultate, regular rate - ABDOMEN: Soft - : jones in place - EXTREMITIES: Trace edema, peripheral pulses 2+ - NEUROLOGIC: Unable to assess, sedated - SKIN: No rashes or lesions. Warm. - LYMPH: No cervical lymphadenopathy. Objective Data Vital Signs Vital Signs: Vital Signs - 24 hr 08/08/23 14:30 08/08/23 14:30 08/08/23 14:50 Temperature Pulse Rate 108 H 108 H 114 H Respiratory Rate 27 H 27 H 27 H Blood Pressure Pulse Oximetry 94 Oxygen Delivery High Flow Therapy with Na Oxygen Flow Rate 50 Fraction of Inspired Oxygen 94 08/08/23 15:10 08/08/23 16:00 08/08/23 16:00 Temperature Pulse Rate 107 H 111 H 111 H Respiratory Rate 25 H 27 H Blood Pressure Pulse Oximetry 90 95 Oxygen Delivery High Flow Therapy with Na BiPAP Oxygen Flow Rate 45 Fraction of Inspired Oxygen 100 70 08/08/23 16:00 08/08/23 16:30 08/08/23 18:00 Temperature 37.5 C Pulse Rate 111 H 106 H 108 H Respiratory Rate 27 H 31 H Blood Pressure 167/92 H Pulse Oximetry 95 96 Oxygen Delivery BiP
[2023-08-09 16:00] LABS: Glucose Point of Care 244 mg/dl (65-105)
[2023-08-09] MEDS: FENTANYL 2,500MCG/NS250ML(*CRX 2,500 MCG/250 ML BAG 20 MCG IV CONT (17:09)
[2023-08-09] MEDS: MIDAZOLAM 100MG/NS 100ML(*CRX) 100 MG/100 ML BAG IV CONT (18:28)
[2023-08-09] MEDS: REMDESIVIR 100 MG/NS 250 ML 100 MG/250 ML BAG 250 MG IVPB (20:36)
[2023-08-10] VITALS (65 sets, daily range): BP systolic 87–181; BP diastolic 48–101; PULSE 93–117; RESP 28–30; TEMP 36.4–36.9; O2SAT 30–100
[2023-08-10] MEDS: INSULIN ASPART (*BKC) 100 UNITS/ML SUB-Q ×7 (00:52→23:15)
[2023-08-10] MEDS: IPRATROPIUM BR 0.02% INH SOLN 0.5 MG/2.5 ML VIAL INHALATION ×3 (01:39→20:01)
[2023-08-10] MEDS: ALBUTEROL SULFATE NEB 2.5 MG/3 ML INH INHALATION ×3 (01:39→20:01)
[2023-08-10] MEDS: PROPOFOL IV EMULSION 100 ML 26.24 MG IV CONT ×3 (02:10→09:50)
[2023-08-10] MEDS: hydrALAZINE HCL 20 MG/ML VIAL 10 MG IV PUSH (02:38)
[2023-08-10 04:40] LABS: Basophils Absolute Auto 0.1 K/mm3 (0.0-0.1); Basophils Percent Auto 0.3 % (0.2-1.2); Eosinophils Percent Auto 0.2 % (0-4.4); Hematocrit 27.2 % (42.0-52.0); Hemoglobin 8.7 g/dL (14.0-18.0); Immature Granulocyte Absolute 1.36 K/mm3 (0.00-0.031); Immature Granulocyte Percent A 6.5 % (0-0.5); Lymphocytes Absolute Auto 1.25 K/mm3 (0.9-3.2); Mean Corpuscular Hemoglobin 26.2 pg (26-34); Mean Corpuscular Volume 81.9 fl (80-100); Mean Platelet Volume 10.4 fl (7.4-10.4); Monocytes Absolute Auto 0.5 K/mm3 (0.1-0.6); Monocytes Percent Auto 2.2 % (2.6-8.5); Neutrophils Absolute Auto 17.7 K/mm3 (1.3-6.7); Neutrophils Percent Auto 84.8 % (45.5-73.1); Nucleated Red Blood Cells Perc 0.1 % (0.0-0.2); Platelet Count Result 155 k/mm3 (150-375); Red Blood Count 3.32 M/mm3 (4.6-6.20); Red Cell Distribution Width 15.3 % (11.5-14.5); White Blood Count 20.8 K/mm3 (4.5-10.0)
[2023-08-10] MEDS: FENTANYL 2,500MCG/NS250ML(*CRX 2,500 MCG/250 ML BAG 20 MCG IV CONT ×2 (04:49→16:36)
[2023-08-10 04:55] LABS: Glucose Point of Care 256 mg/dl (65-105)
[2023-08-10 04:55] LABS: Glucose Point of Care 239 mg/dl (65-105)
[2023-08-10 05:07] LABS: Alanine Aminotransferase 20 U/L (6-50); Albumin Level 2.9 g/dL (3.5-5.1); Alkaline Phosphatase 179 U/L (38-126); Anion Gap 6 mmol/L (8-16); Aspartate Amino Transferase 41 U/L (17-59); Bilirubin,Total 1.1 mg/dL (0.2-1.3); Blood Urea Nitrogen 39 mg/dL (9-20); Carbon Dioxide 32 mmol/L (22-30); Chloride 96 mmol/L (98-107); Estimated CRCL calculation 90 ml/min; Estimated Glomerular Filt Rate > 60; Glucose 263 mg/dL (65-110); Magnesium 2.1 mg/dL (1.6-2.3); Potassium 4.1 mmol/L (3.4-5.0); Sodium 134 mmol/L (137-145)
[2023-08-10] MEDS: CENTRAL LINE FLUSH 10 ML IV PUSH ×3 (05:26→20:22)
[2023-08-10 05:31] LABS: Procalcitonin 2.2 ng/mL
[2023-08-10] MEDS: CISATRACURIUM BESYLATE 200 MG in DEXTROSE 5% 80 ML 8.51 ML IV CONT (05:33)
[2023-08-10 06:03] LABS: Alveolar/Arterial O2 Gradient 152.8 mmHg; Base Excess ABG 5.7 mEq/l (+/-2.0); Carboxyhemoglobin 0.3 % THb (0-2.0); Fractional Inspired Oxygen 40 %; HCO3 ABG 29.7 mEq/l (22.0-26.0); Methemoglobin ABG 0.2 %THb (0-1.5); Oxygen Content ABG 13.8 %vol (16.0-22.0); Oxyhemoglobin 95.5 % THb (90.0-100.0); PCO2 ABG 41.2 mmHg (35.0-45.0); PO2 FiO2 Ratio Arterial Blood 2.13 %; Total Hemoglobin 10.2 g/dL (12.0-18.0); pH ABG 7.476 (7.350-7.450)
[2023-08-10 06:04] LABS: Device VENTILATOR; Modified Allen's Test Unable to perform; Site Drawn RIGHT RADIAL
[2023-08-10 06:05] LABS: Arterial Blood Gas PEEP 12 cmH2O; Arterial Blood Gas Tidal Volume 450 ml; Arterial Blood Gas Vent Mode CMV; Arterial Blood Gas Ventilator rate 30 /MIN
--- NOTE | 2023-08-10 08:31 | WPDINTPN ---
Progress Note: A&P Assessment and Plan (1) Acute respiratory failure with hypoxia: Code(s): J96.01 - Acute respiratory failure with hypoxia Status: Acute Assessment and Plan: Acute hypoxic Respiratory failure secondary to combination of COVID pneumonia, bacterial pneumonia from Streptococcus pneumoniae and component of congestive heart failure His COVID PCR was positive. His blood culture positive for Streptococcus pneumoniae and he had elevated procalcitonin level. His BNP was also elevated Through the hospital course patient's hypoxia has been gradually getting worse as he was on nasal cannula presentation later moved to Airvo and was BiPAP. Overnight she deteriorated and was intubated. Post intubation patient remained hypoxic with low saturation requiring high PEEP. He was a synchronous with the ventilator and required neuromuscular jessee. 08/09 morning he developed spontaneous pneumothorax and a right-sided chest tube was placed-see below 08/10 Vent settings reviewed. Continue PEEP of 12 and FiO2 40%. Will supine patient this morning and re prone after 6 hours. If patient tolerates will wean PEEP down further. ABG reviewed Continue bronchodilator Continue dexamethasone and Remdesivir Hold treatment with immunomodulators due to for strep pneumo pneumonia and bacteremia. His CRP is low at 5.1 (2) Spontaneous pneumothorax: Code(s): J93.83 - Other pneumothorax Status: Acute Assessment and Plan: Patient developed spontaneous pneumothorax post intubation likely from barotrauma. 08/09 status post chest tube placement on the right by general surgery (3) Sepsis: Code(s): A41.9 - Sepsis, unspecified organism Status: Acute Assessment and Plan: Patient presented with picture of pneumonia with positive COVID PCR and procalcitonin level. His blood culture came back positive for Streptococcus pneumoniae. Patient may have had COVID and then developed secondary bacterial infection Patient was initially on vancomycin Rocephin azithromycin which was changed to Rocephin daily Repeat blood cultures are negative till now Continue Rocephin 2 g IV q.day Post intubation patient has been hypotensive and was on Levophed temporarily which has been weaned off after fluid bolus Patient does have history of IV drug abuse but his HIV screen was negative (4) Type 2 diabetes mellitus: Code(s): E11.9 - Type 2 diabetes mellitus without complications Status: Acute Assessment and Plan: Change sliding scale to q.4 hours Add Lantus (5) Pneumonia due to COVID-19 virus: Code(s): U07.1 - COVID-19; J12.82 - Pneumonia due to coronavirus disease 2019 Status: Acute Assessment and Plan: See above (6) Pneumonia: Code(s): J18.9 - Pneumonia, unspecified organism Status: Acute Assessment and Plan: See above (7) Bacteremia: Code(s): R78.81 - Bacteremia Status: Acute Assessment and Plan: See above (8) Back pain: Code(s): M54.9 - Dorsalgia, unspecified Status: Acute Assessment and Plan: Patient had been complaining of back pain since admission and states that he has chronic back pain has been requiring opioids. In light of bacteremia I would like to image his spine to rule out any complication. Unfortunately we are unable to do MRI at [facility] on a ventilator patient. Will check CT of the chest abdomen and pelvis Plan DVT prophylaxis -Lovenox Stress ulcer prophylaxis -Protonix Nutrition -Continue Tube Feeds Code Status - Full Code 08/09 I spoke to patient's by phone and updated her with patient's current status loading events from the last night. I updated her with the patient's respiratory failure secondary to COVID-19 pneumonia and bacterial pneumonia, bacteremia, spontaneous pneumothorax requiring chest tube placement, severe respiratory failure requiring prone position and high FiO2 and PEEP. I explain
[2023-08-10] MEDS: PANTOPRAZOLE SODIUM IV 40 MG VIAL IV PUSH (09:20)
[2023-08-10] MEDS: INSULIN GLARGINE (*BKC) 100 UNITS/ML 20 UNITS SUB-Q (09:21)
[2023-08-10] MEDS: DEXAMETHASONE 2 MG TABLET 6 MG FEED TUBE (09:21)
[2023-08-10] MEDS: cefTRIAXone 2 GM/NS 100 ML 2 GM/100 ML BAG IVPB (09:22)
[2023-08-10] MEDS: MINERAL OIL/WHITE PETROLATUM OINTMENT 1 APPLIC EACH EYE ×2 (09:22→20:22)
[2023-08-10] MEDS: ENOXAPARIN 40 MG/0.4 ML SYRINGE SUB-Q (09:31)
--- NOTE | 2023-08-10 09:41 | PC.NURSE ---
Patient turned supine at 0824.
[2023-08-10 09:59] LABS: Glucose Point of Care 245 mg/dl (65-105)
--- NOTE | 2023-08-10 12:52 | PM.IMPN ---
Progress Note: A&P Assessment and Plan (1) Bacteremia: Code(s): R78.81 - Bacteremia Status: Acute (2) Pneumonia: Code(s): J18.9 - Pneumonia, unspecified organism Status: Acute (3) Spontaneous pneumothorax: Code(s): J93.83 - Other pneumothorax Status: Acute (4) Essential hypertension: Code(s): I10 - Essential (primary) hypertension Status: Acute (5) Sepsis: Code(s): A41.9 - Sepsis, unspecified organism Status: Acute (6) Pneumonia due to COVID-19 virus: Code(s): U07.1 - COVID-19; J12.82 - Pneumonia due to coronavirus disease 2019 Status: Acute (7) Acute respiratory failure with hypoxia: Code(s): J96.01 - Acute respiratory failure with hypoxia Status: Acute Plan # multifocal pneumonia with COVID-19 and strep pneumonaie # strep pneumonaie bacteremia # septic shock secondary to pneumonia, shock resolved -COVID-19 positive.? Blood culture positive for strep pneumonia -intubated overnight 4 AM 08/09/23 -in prone position, paralyzed on Nimbex -sedation: Propofol, Versed, fentanyl -vasopressors: Levophed available, off pressors -treatment plan: continue d5 remdesivir, decadron -ABx: rocephin 2g (BCx positive for GPC) -antiemetic Zofran -anxiety: Continue as needed Ativan establish -appreciate lead former consultation recommendations and management # spontaneous pneumothorax -right-sided chest tube placed by general surgeon -likely secondary to high PEEP from ventilator # essential hypertension -may need to resume amlodipine if persistently hypertensive. for now PRN labetolol # congestive heart failure, HFpEF - patient has lower extremity edema - echo 08/07/23: EF 55-60%, abnormal LV diastolic function - he has responded well to the diuresis, monitoring BP - repleting potassium as needed # chronic back pain - Exacerbated by patient being stuck in bed - pain control: oxycodone, Tylenol, lidocaine, breakthrough morphine - CT C/A/P today for evaluation for diskitis considering bacteremia #Type 2 diabetes -non-compliant, has no home regimen. Hgb a1c 7.4, diet controlled -starting glargine 20u daily Diet:??Tube feed DVT prophylaxis:?lovenox GI prophylaxis:?Protonix IV Code status:??Full code Disposition:??Continue monitoring in ICU Subjective Date/time seen: 08/10/23 12:52 Interval history: Patient seen examined. He is currently supinated. Plan for proning later today. Patient had chest abd pelvis CT scan today to look for possible diskitis. We are weaning FiO2. He is off vasopressors. Review of Systems Review of Systems: Unable to obtain, patient intubated Exam Narrative: - GENERAL:? Intubated male in prone position. - EYES: EOMI. Anicteric. - HENT:? ET tube in place, OG tube in place - LUNGS:? Diminished lung sounds.? Right chest tube in place - CARDIOVASCULAR:? Tachycardic, regular rhythm, no murmurs - ABDOMEN: Soft, nondistended - : jones in place - EXTREMITIES:? Trace edema, peripheral pulses 2+ - NEUROLOGIC:? Unable to assess, sedated - SKIN: No rashes or lesions. Warm. Objective Data Vital Signs Vital Signs: Vital Signs - 24 hr 08/09/23 13:25 08/09/23 14:45 08/09/23 14:45 Temperature Pulse Rate 97 97 Respiratory Rate 30 H Blood Pressure Pulse Oximetry 98 Oxygen Delivery Mechanical Ventilation Fraction of Inspired Oxygen 70 65 08/09/23 14:58 08/09/23 14:58 08/09/23 14:00 Temperature Pulse Rate 94 100 Respiratory Rate 30 H 30 H Blood Pressure Pulse Oximetry 95 Oxygen Delivery Mechanical Ventilation Fraction of Inspired Oxygen 55 08/09/23 14:00 08/09/23 14:00 08/09/23 15:02 Temperature Pulse Rate 100 100 95 Respiratory Rate 30 H 30 H 30 H Blood Pressure Pulse Oximetry Oxygen Delivery Fraction of Inspired Oxygen 08/09/23 15:02 08/09/23 15:02 08/09/23 13:00 Temperature Pulse Rate 95 95 106 H Respiratory Rate 30 H 30 H 3
[2023-08-10] MEDS: METOCLOPRAMIDE HCL 10 MG TABLET FEED TUBE ×2 (13:41→18:37)
[2023-08-10] MEDS: PROPOFOL IV EMULSION 100 ML 29.16 MG IV CONT (13:44)
--- NOTE | 2023-08-10 15:45 | PC.NURSE ---
At 1320 Patient noted to have decrease urine output, that has been previously discussed with provider. Patients jones has been flushed with minimal resolution throughout the day. Thick sediment noted in jones catheter. Patient bladder scanned with >500 mls residing in bladder. MD made aware. Jones catheter replaced at 1335 which yielded 1000 mls of dark brown/red colored urine with thick sediment. MD aware. Patient tolerated well. Will continue to monitor.
--- NOTE | 2023-08-10 15:51 | PC.NURSE ---
Patient proned at 1435. Tolerated well. Patient to remain proned throughout the night per orders from Dr. Freeman.
[2023-08-10] MEDS: CISATRACURIUM BESYLATE 200 MG in DEXTROSE 5% 80 ML 12.76 ML IV CONT (16:29)
[2023-08-10] MEDS: MIDAZOLAM 100MG/NS 100ML(*CRX) 100 MG/100 ML BAG IV CONT (16:32)
[2023-08-10 16:58] LABS: Glucose Point of Care 233 mg/dl (65-105)
[2023-08-10 17:04] LABS: Glucose Point of Care 229 mg/dl (65-105)
[2023-08-10] MEDS: PROPOFOL IV EMULSION 100 ML 17.5 MG IV CONT (18:42)
[2023-08-10] MEDS: LABETALOL HCL INJ 100 MG/20 ML VIAL 20 MG IV PUSH (23:10)
[2023-08-10 23:24] LABS: Glucose Point of Care 280 mg/dl (65-105)
[2023-08-10 23:24] LABS: Glucose Point of Care 311 mg/dl (65-105)
[2023-08-11] VITALS (66 sets, daily range): BP systolic 109–181; BP diastolic 46–89; PULSE 70–113; RESP 18–35; TEMP 36.6–37.7; O2SAT 94–98; BMI 31.5; BMI 30.3
[2023-08-11] MEDS: METOCLOPRAMIDE HCL 10 MG TABLET FEED TUBE ×4 (00:16→17:02)
[2023-08-11] MEDS: PROPOFOL IV EMULSION 100 ML 17.5 MG IV CONT ×2 (00:16→05:37)
[2023-08-11] MEDS: CISATRACURIUM BESYLATE 200 MG in DEXTROSE 5% 80 ML 8.51 ML IV CONT (00:17)
[2023-08-11 04:48] LABS: Alveolar/Arterial O2 Gradient 87.8 mmHg; Base Excess ABG 6.9 mEq/l (+/-2.0); Carboxyhemoglobin 0.3 % THb (0-2.0); Fractional Inspired Oxygen 30 %; HCO3 ABG 31.7 mEq/l (22.0-26.0); Methemoglobin ABG 0.5 %THb (0-1.5); Oxygen Content ABG 12.6 %vol (16.0-22.0); Oxygen Saturation ABG 94.8 % (95.0-100.0); Oxyhemoglobin 92.7 % THb (90.0-100.0); PCO2 ABG 46.7 mmHg (35.0-45.0); PO2 ABG 71.2 mmHg (80.0-100.0); PO2 FiO2 Ratio Arterial Blood 2.37 %; Reduced Hemoglobin 6.5 %THb (0-5.0); Total Hemoglobin 9.6 g/dL (12.0-18.0)
[2023-08-11 04:50] LABS: Arterial Blood Gas Vent Mode CMV; Arterial Blood Gas Ventilator rate 28 /MIN; Device VENTILATOR; Modified Allen's Test Pass; Site Drawn RIGHT RADIAL
[2023-08-11 04:51] LABS: Arterial Blood Gas PEEP 8 cmH2O; Arterial Blood Gas Tidal Volume 450 ml
[2023-08-11] MEDS: LABETALOL HCL INJ 100 MG/20 ML VIAL 20 MG IV PUSH (04:59)
[2023-08-11] MEDS: FENTANYL 2,500MCG/NS250ML(*CRX 2,500 MCG/250 ML BAG 20 MCG IV CONT ×2 (05:17→17:07)
[2023-08-11] MEDS: CENTRAL LINE FLUSH 10 ML IV PUSH ×3 (05:19→20:49)
[2023-08-11] MEDS: INSULIN ASPART (*BKC) 100 UNITS/ML SUB-Q ×4 (05:28→20:36)
[2023-08-11 05:34] LABS: Basophils Percent Auto 0.3 % (0.2-1.2); Eosinophils Absolute Auto 0.2 K/mm3 (0-0.3); Eosinophils Percent Auto 1.7 % (0-4.4); Hematocrit 26.7 % (42.0-52.0); Hemoglobin 8.4 g/dL (14.0-18.0); Immature Granulocyte Absolute 0.83 K/mm3 (0.00-0.031); Immature Granulocyte Percent A 5.8 % (0-0.5); Lymphocytes Absolute Auto 1.34 K/mm3 (0.9-3.2); Lymphocytes Percent Auto 9.3 % (18.3-44.2); Mean Corpuscular HGB Conc 31.5 g/dl (32-36); Mean Corpuscular Hemoglobin 26.3 pg (26-34); Mean Corpuscular Volume 83.4 fl (80-100); Mean Platelet Volume 10.3 fl (7.4-10.4); Monocytes Absolute Auto 0.3 K/mm3 (0.1-0.6); Monocytes Percent Auto 2.4 % (2.6-8.5); Neutrophils Absolute Auto 11.6 K/mm3 (1.3-6.7); Neutrophils Percent Auto 80.5 % (45.5-73.1); Platelet Count Result 182 k/mm3 (150-375); Red Cell Distribution Width 15.3 % (11.5-14.5); White Blood Count 14.4 K/mm3 (4.5-10.0)
[2023-08-11 05:43] LABS: Creatine Kinase 83 U/L (55-170)
[2023-08-11 05:46] LABS: Triglycerides 352 mg/dL (<150)
[2023-08-11 05:47] LABS: Potassium 4.3 mmol/L (3.4-5.0)
[2023-08-11 05:50] LABS: Alanine Aminotransferase 17 U/L (6-50); Albumin Level 2.9 g/dL (3.5-5.1); Alkaline Phosphatase 157 U/L (38-126); Anion Gap 3 mmol/L (8-16); Aspartate Amino Transferase 29 U/L (17-59); Bilirubin,Total 0.8 mg/dL (0.2-1.3); Blood Urea Nitrogen 42 mg/dL (9-20); Calcium 8.1 mg/dL (8.4-10.2); Carbon Dioxide 37 mmol/L (22-30); Chloride 98 mmol/L (98-107); Estimated CRCL calculation 103 ml/min; Estimated Glomerular Filt Rate > 60; Glucose 234 mg/dL (65-110); Magnesium 2.2 mg/dL (1.6-2.3); Sodium 138 mmol/L (137-145)
[2023-08-11 06:25] LABS: Procalcitonin 1.2 ng/mL
[2023-08-11 07:20] LABS: Glucose Point of Care 221 mg/dl (65-105)
[2023-08-11] MEDS: ALBUTEROL SULFATE NEB 2.5 MG/3 ML INH INHALATION ×3 (07:42→19:55)
[2023-08-11] MEDS: IPRATROPIUM BR 0.02% INH SOLN 0.5 MG/2.5 ML VIAL INHALATION ×3 (07:42→19:55)
[2023-08-11 07:44] LABS: Glucose Point of Care 170 mg/dl (65-105)
--- NOTE | 2023-08-11 08:20 | WPDINTPN ---
Progress Note: A&P Assessment and Plan (1) Acute respiratory failure with hypoxia: Code(s): J96.01 - Acute respiratory failure with hypoxia Status: Acute Assessment and Plan: Acute hypoxic Respiratory failure secondary to combination of COVID pneumonia, bacterial pneumonia from Streptococcus pneumoniae and component of congestive heart failure His COVID PCR was positive. His blood culture positive for Streptococcus pneumoniae and he had elevated procalcitonin level. His BNP was also elevated Through the hospital course patient's hypoxia has been gradually getting worse as he was on nasal cannula presentation later moved to Airvo and was BiPAP. Overnight she deteriorated and was intubated. Post intubation patient remained hypoxic with low saturation requiring high PEEP. He was a synchronous with the ventilator and required neuromuscular jessee. 08/09 morning he developed spontaneous pneumothorax and a right-sided chest tube was placed-see below 08/10 Vent settings reviewed. Continue PEEP of 12 and FiO2 40%. Will supine patient this morning and re prone after 6 hours. If patient tolerates will wean PEEP down further. 08/11 FiO2 30% peep of 8. Will supine patient today. Will discontinue Nimbex infusion and monitor ABG reviewed. Chest x-ray reviewed Continue bronchodilator Continue dexamethasone and Remdesivir Patient not treated with immunomodulators due to for strep pneumo pneumonia and bacteremia. His CRP is low at 5.1 CT chest 08/10 Diffuse bilateral pulmonary opacities likely representing pulmonary edema overlying somewhat improving infectious changes. Changes of ARDS should also be considered in the differential. Small right pneumothorax. (2) Spontaneous pneumothorax: Code(s): J93.83 - Other pneumothorax Status: Acute Assessment and Plan: Patient developed spontaneous pneumothorax post intubation likely from barotrauma. 08/09 status post chest tube placement on the right by general surgery 08/10 CT scan done in supine position showed pneumothorax anteriorly while chest tube was posterior to the lung. Chest x-ray done this morning does not show any pneumothorax. Continue to monitor. No air leak at this time. Chest tube is in acceptable place on images (3) Sepsis: Code(s): A41.9 - Sepsis, unspecified organism Status: Acute Assessment and Plan: Patient presented with picture of pneumonia with positive COVID PCR and procalcitonin level. His blood culture came back positive for Streptococcus pneumoniae. Patient may have had COVID and then developed secondary bacterial infection Patient was initially on vancomycin Rocephin azithromycin which was changed to Rocephin daily Repeat blood cultures are negative till now Continue Rocephin 2 g IV q.day Post intubation patient has been hypotensive and was on Levophed temporarily which has been weaned off after fluid bolus Patient does have history of IV drug abuse but his HIV screen was negative (4) Type 2 diabetes mellitus: Code(s): E11.9 - Type 2 diabetes mellitus without complications Status: Acute Assessment and Plan: Change sliding scale to q.4 hours Increased lantus (5) Pneumonia due to COVID-19 virus: Code(s): U07.1 - COVID-19; J12.82 - Pneumonia due to coronavirus disease 2018 Status: Acute Assessment and Plan: See above (6) Pneumonia: Code(s): J18.9 - Pneumonia, unspecified organism Status: Acute Assessment and Plan: See above (7) Bacteremia: Code(s): R78.81 - Bacteremia Status: Acute Assessment and Plan: See above (8) Back pain: Code(s): M54.9 - Dorsalgia, unspecified Status: Acute Assessment and Plan: Patient had been complaining of back pain since admission and states that he has chronic back pain has been requiring opioids. In light of bacteremia I would like to image his spine to rule out any complication. Unfortunatel
--- NOTE | 2023-08-11 08:29 | PM.IMPN ---
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 - Infarction of spleen Status: Acute (2) Urinary retention: Code(s): R33.9 - Retention of urine, unspecified Status: Acute (3) Back pain: Code(s): M54.9 - Dorsalgia, unspecified Status: Acute (4) Bacteremia: Code(s): R78.81 - Bacteremia Status: Acute (5) Pneumonia: Code(s): J18.9 - Pneumonia, unspecified organism Status: Acute (6) Spontaneous pneumothorax: Code(s): J93.83 - Other pneumothorax Status: Acute (7) Essential hypertension: Code(s): I10 - Essential (primary) hypertension Status: Acute (8) Sepsis: Code(s): A41.9 - Sepsis, unspecified organism Status: Acute (9) Type 2 diabetes mellitus: Code(s): E11.9 - Type 2 diabetes mellitus without complications Status: Acute (10) Acute respiratory failure with hypoxia: Code(s): J96.01 - Acute respiratory failure with hypoxia Status: Acute (11) Pneumonia due to COVID-19 virus: Code(s): U07.1 - COVID-19; J12.82 - Pneumonia due to coronavirus disease 2019 Status: Acute Plan # multifocal pneumonia with COVID-19 and strep pneumonaie # strep pneumonaie bacteremia # septic shock secondary to pneumonia, shock resolved -COVID-19 positive.? Blood culture positive for strep pneumonia -intubated overnight 4 AM 08/09/23 -in prone position, paralyzed on Nimbex -sedation: Propofol, Versed, fentanyl - Triglycerides were elevated ~350's today. Per Denture Laboratory Technician, recheck with peripheral draw - potential plan to decrease propofol and increase versed -vasopressors: Levophed available, off pressors -treatment plan: continue d5 remdesivir, decadron -ABx: rocephin 2g (BCx positive for GPC) -wbc downtrended from 20.8 to 14.4 -antiemetic Zofran -anxiety: Continue as needed Ativan establish -appreciate pocket grinder operator consultation recommendations and management # spontaneous pneumothorax -right-sided chest tube placed by general surgeon -likely secondary to high PEEP from ventilator # essential hypertension -may need to resume amlodipine if persistently hypertensive. for now PRN labetolol # congestive heart failure, HFpEF - patient has lower extremity edema - echo 08/07/23: EF 55-60%, abnormal LV diastolic function - he has responded well to the diuresis, monitoring BP - repleting potassium as needed # chronic back pain - Exacerbated by patient being stuck in bed - pain control: oxycodone, Tylenol, lidocaine, breakthrough morphine -?CT C/A/P?today for evaluation for diskitis considering bacteremia #Type 2 diabetes -non-compliant, has no home regimen. Hgb a1c 7.4, diet controlled -starting glargine 20u daily # c/f BL pyelonephritis vs ATN - significant sediment in urine - cr stable at 1.0 - CT shows BL perinephric stranding - Blood cx were positive for strep pneumo - wbc downtrending, on 2g ceftriaxone Diet:??Tube feed DVT prophylaxis:?lovenox GI prophylaxis:?Protonix IV Code status:??Full code Disposition:??Continue monitoring in ICU Time Spent With Patient Time: 30 min. Subjective Date/time seen: 08/11/23 08:29 Interval history: pt is paralyzed. did not respond to call. pt was being proned. Has been hypertensive on occasion this morning. Recommend prn dose pushes of sedation and pain medication for respiratory distress and pain. Review of Systems Review of Systems: unable to assess. Exam Narrative: - GENERAL:? Intubated male in prone position. sedated and paralyzed. - EYES: EOMI. Anicteric. - HENT:? ET tube in place, OG tube in place - LUNGS:? Diminished lung sounds.? Right chest tube in place - CARDIOVASCULAR:? Tachycardic, regular rhythm, no murmurs - ABDOMEN: Soft, nondistended - : jones in place - EXTREMITIES:? Trace edema, peripheral pulses 2+ - NEUROLOGIC:? Unable to assess, sedated - SKIN: No rashes or lesions. Warm. Objective Da
[2023-08-11] MEDS: DEXAMETHASONE 2 MG TABLET 6 MG FEED TUBE (09:13)
[2023-08-11] MEDS: ENOXAPARIN 40 MG/0.4 ML SYRINGE SUB-Q (09:14)
[2023-08-11] MEDS: PANTOPRAZOLE SODIUM IV 40 MG VIAL IV PUSH (09:14)
[2023-08-11] MEDS: INSULIN GLARGINE (*BKC) 100 UNITS/ML 30 UNITS SUB-Q (09:15)
[2023-08-11] MEDS: MINERAL OIL/WHITE PETROLATUM OINTMENT 1 APPLIC EACH EYE ×2 (09:16→20:49)
[2023-08-11] MEDS: cefTRIAXone 2 GM/NS 100 ML 2 GM/100 ML BAG IVPB (09:16)
[2023-08-11] MEDS: PROPOFOL IV EMULSION 100 ML 23.33 MG IV CONT ×2 (09:53→13:22)
[2023-08-11 10:18] LABS: Appearance Urine Turbid (Clear); Bacteria Urine None Seen /hpf; Bilirubin Urine Negative (Negative); Blood Urine 3+ (Negative); Color Urine Yellow (Yellow); Glucose Urine UA Negative (Negative); Ketones Urine Negative (Negative); Leukocyte Esterase Ur Negative LEU/UL (Negative); Nitrate Urine Negative (Negative); Protein Urine 1+ mg/dL (Negative); RBC Urine 51-100 /hpf (0-2); Specific Grav Ur 1.018 (1.001-1.035); Squamous Epithelial Cell Urine Occasional /hpf (Few); Uric Acid Crystals Urine Present /hpf; Urobilinogen Urine 0.2 mg/dL (<2.0); pH Urine 5.5 (5.0-9.0)
[2023-08-11 10:19] LABS: Add Urine Microscopic? YES
[2023-08-11 11:04] LABS: Triglycerides 407 mg/dL (<150)
[2023-08-11] MEDS: ACETAMINOPHEN 325 MG TABLET 650 MG PO (12:48)
[2023-08-11 13:14] LABS: Glucose Point of Care 214 mg/dl (65-105)
[2023-08-11] MEDS: MIDAZOLAM 100MG/NS 100ML(*CRX) 100 MG/100 ML BAG 10 MG IV CONT ×2 (13:22→20:46)
[2023-08-11 13:36] LABS: Rapid Plasma Reagin Non-Reactive (NonReactive)
[2023-08-11 13:44] LABS: Mycoplasma IgM Antibody Titer 605 U/mL (<770)
[2023-08-11] MEDS: MIDAZOLAM HCL (*CRX) 2 MG/2 ML VIAL 4 MG IV PUSH (14:15)
[2023-08-11] MEDS: dexmedeTOMIDine 400 MCG/100 ML 400 MCG/100 ML BAG IV CONT (14:17)
[2023-08-11 16:30] LABS: Glucose Point of Care 266 mg/dl (65-105)
[2023-08-11] MEDS: PROPOFOL IV EMULSION 100 ML 14.58 MG IV CONT (17:09)
[2023-08-11 20:34] LABS: Glucose Point of Care 230 mg/dl (65-105)
[2023-08-11] MEDS: dexmedeTOMIDine 400 MCG/100 ML 400 MCG/100 ML BAG 16.77 MCG IV CONT (20:43)
[2023-08-12] VITALS (57 sets, daily range): BP systolic 110–152; BP diastolic 56–88; PULSE 61–84; RESP 25–35; TEMP 37.4–38.4; O2SAT 92–99
[2023-08-12] MEDS: METOCLOPRAMIDE HCL 10 MG TABLET FEED TUBE ×5 (00:13→23:42)
[2023-08-12 00:24] LABS: Glucose Point of Care 169 mg/dl (65-105)
[2023-08-12] MEDS: dexmedeTOMIDine 400 MCG/100 ML 400 MCG/100 ML BAG 23.95 MCG IV CONT ×2 (00:41→13:24)
[2023-08-12] MEDS: IPRATROPIUM BR 0.02% INH SOLN 0.5 MG/2.5 ML VIAL INHALATION ×4 (01:25→19:02)
[2023-08-12] MEDS: ALBUTEROL SULFATE NEB 2.5 MG/3 ML INH INHALATION ×4 (01:25→19:02)
[2023-08-12] MEDS: ACETAMINOPHEN 325 MG TABLET 650 MG PO ×2 (03:40→11:39)
[2023-08-12] MEDS: dexmedeTOMIDine 400 MCG/100 ML 400 MCG/100 ML BAG 21.56 MCG IV CONT ×2 (04:42→09:00)
[2023-08-12 04:57] LABS: Basophils Percent Auto 0.1 % (0.2-1.2); Eosinophils Absolute Auto 0.2 K/mm3 (0-0.3); Eosinophils Percent Auto 2.2 % (0-4.4); Hematocrit 24.1 % (42.0-52.0); Hemoglobin 7.2 g/dL (14.0-18.0); Immature Granulocyte Absolute 0.27 K/mm3 (0.00-0.031); Immature Granulocyte Percent A 2.8 % (0-0.5); Lymphocytes Absolute Auto 2.39 K/mm3 (0.9-3.2); Lymphocytes Percent Auto 24.7 % (18.3-44.2); Mean Corpuscular HGB Conc 29.9 g/dl (32-36); Mean Corpuscular Hemoglobin 24.9 pg (26-34); Mean Corpuscular Volume 83.4 fl (80-100); Mean Platelet Volume 10.4 fl (7.4-10.4); Monocytes Absolute Auto 0.3 K/mm3 (0.1-0.6); Monocytes Percent Auto 3.5 % (2.6-8.5); Neutrophils Absolute Auto 6.5 K/mm3 (1.3-6.7); Neutrophils Percent Auto 66.7 % (45.5-73.1); Platelet Count Result 183 k/mm3 (150-375); Red Blood Count 2.89 M/mm3 (4.6-6.20); Red Cell Distribution Width 15.6 % (11.5-14.5); White Blood Count 9.7 K/mm3 (4.5-10.0)
[2023-08-12 05:07] LABS: Alanine Aminotransferase 18 U/L (6-50); Albumin Level 2.8 g/dL (3.5-5.1); Alkaline Phosphatase 118 U/L (38-126); Anion Gap 0 mmol/L (8-16); Aspartate Amino Transferase 30 U/L (17-59); Bilirubin,Total 0.7 mg/dL (0.2-1.3); Blood Urea Nitrogen 41 mg/dL (9-20); Carbon Dioxide 35 mmol/L (22-30); Chloride 102 mmol/L (98-107); Estimated CRCL calculation 101 ml/min; Estimated Glomerular Filt Rate > 60; Glucose 208 mg/dL (65-110); Magnesium 1.9 mg/dL (1.6-2.3); Sodium 137 mmol/L (137-145); Triglycerides 320 mg/dL (<150)
[2023-08-12 05:16] LABS: Alveolar/Arterial O2 Gradient 104.2 mmHg; Base Excess ABG 8.9 mEq/l (+/-2.0); Carboxyhemoglobin 0.3 % THb (0-2.0); Fractional Inspired Oxygen 30 %; HCO3 ABG 32.1 mEq/l (22.0-26.0); Methemoglobin ABG 0.3 %THb (0-1.5); Oxygen Content ABG 11.7 %vol (16.0-22.0); Oxygen Saturation ABG 94.7 % (95.0-100.0); Oxyhemoglobin 92.2 % THb (90.0-100.0); PCO2 ABG 38.6 mmHg (35.0-45.0); PO2 ABG 64.3 mmHg (80.0-100.0); PO2 FiO2 Ratio Arterial Blood 2.14 %; Reduced Hemoglobin 7.2 %THb (0-5.0)
[2023-08-12 05:18] LABS: Device VENTILATOR; Modified Allen's Test Pass; Site Drawn RIGHT RADIAL; pH ABG 7.538 (7.350-7.450)
[2023-08-12] MEDS: FENTANYL 2,500MCG/NS250ML(*CRX 2,500 MCG/250 ML BAG 20 MCG IV CONT (05:18)
[2023-08-12 05:19] LABS: Arterial Blood Gas PEEP 8 cmH2O; Arterial Blood Gas Tidal Volume 450 ml; Arterial Blood Gas Vent Mode CMV; Arterial Blood Gas Ventilator rate 28 /MIN
[2023-08-12] MEDS: MIDAZOLAM 100MG/NS 100ML(*CRX) 100 MG/100 ML BAG 10 MG IV CONT ×3 (05:19→22:55)
[2023-08-12] MEDS: INSULIN ASPART (*BKC) 100 UNITS/ML SUB-Q ×5 (05:21→23:42)
[2023-08-12] MEDS: CENTRAL LINE FLUSH 10 ML IV PUSH ×3 (05:23→20:06)
[2023-08-12] MEDS: PROPOFOL IV EMULSION 100 ML 5.83 MG IV CONT (07:13)
[2023-08-12] MEDS: INSULIN GLARGINE (*BKC) 100 UNITS/ML 30 UNITS SUB-Q (08:33)
[2023-08-12] MEDS: DEXAMETHASONE 2 MG TABLET 6 MG FEED TUBE (08:35)
[2023-08-12] MEDS: ENOXAPARIN 40 MG/0.4 ML SYRINGE SUB-Q (08:35)
[2023-08-12] MEDS: MINERAL OIL/WHITE PETROLATUM OINTMENT 1 APPLIC EACH EYE ×2 (08:37→20:06)
[2023-08-12] MEDS: PANTOPRAZOLE SODIUM IV 40 MG VIAL IV PUSH ×2 (08:37→20:06)
[2023-08-12] MEDS: MORPHINE 50 MG/NS 100ML (*CRX) 50 MG/100 ML BAG 10 MG IV CONT (08:44)
[2023-08-12] MEDS: MORPHINE SULFATE INJ (*CRX) 10 MG/ML AMP 5 MG IV PUSH (08:44)
[2023-08-12] MEDS: cefTRIAXone 2 GM/NS 100 ML 2 GM/100 ML BAG IVPB (08:45)
--- NOTE | 2023-08-12 09:02 | WPDINTPN ---
Progress Note: A&P Assessment and Plan (1) Acute respiratory failure with hypoxia: Code(s): J96.01 - Acute respiratory failure with hypoxia Status: Acute Assessment and Plan: Acute hypoxic Respiratory failure secondary to combination of COVID pneumonia, bacterial pneumonia from Streptococcus pneumoniae and component of congestive heart failure His COVID PCR was positive. His blood culture positive for Streptococcus pneumoniae and he had elevated procalcitonin level. His BNP was also elevated Through the hospital course patient's hypoxia has been gradually getting worse as he was on nasal cannula presentation later moved to Airvo and was BiPAP. Overnight she deteriorated and was intubated. Post intubation patient remained hypoxic with low saturation requiring high PEEP. He was a synchronous with the ventilator and required neuromuscular jessee. 08/09 morning he developed spontaneous pneumothorax and a right-sided chest tube was placed-see below 08/10 Vent settings reviewed. Continue PEEP of 12 and FiO2 40%. Will supine patient this morning and re prone after 6 hours. If patient tolerates will wean PEEP down further. 10 FiO2 30% peep of 8. Will supine patient today. Will discontinue Nimbex infusion and monitor 08/12 off Nimbex. Tolerated supine ventilation through the night. FiO2 30% peep of 8. Chest x-ray still shows diffuse bilateral infiltrates and a small apical pneumothorax. He has not been tolerating lowering of sedation at this time Decrease ventilator rate to 25 Continue bronchodilator Continue dexamethasone Completed course of remdesivir Patient not treated with immunomodulators due to for strep pneumo pneumonia and bacteremia. His CRP is low at 5.1 CT chest 08/10 Diffuse bilateral pulmonary opacities likely representing pulmonary edema overlying somewhat improving infectious changes. Changes of ARDS should also be considered in the differential. Small right pneumothorax. (2) Spontaneous pneumothorax: Code(s): J93.83 - Other pneumothorax Status: Acute Assessment and Plan: Patient developed spontaneous pneumothorax post intubation likely from barotrauma. 08/09 status post chest tube placement on the right by general surgery 08/10 CT scan done in supine position showed pneumothorax anteriorly while chest tube was posterior to the lung. Chest x-ray done this morning does not show any pneumothorax. Continue to monitor. No air leak at this time. Chest tube is in acceptable place on images 08/12 small apical pneumothorax on the chest x-ray. Chest tube is in place. No air leak at this time (3) Sepsis: Code(s): A41.9 - Sepsis, unspecified organism Status: Acute Assessment and Plan: Patient presented with picture of pneumonia with positive COVID PCR and procalcitonin level. His blood culture came back positive for Streptococcus pneumoniae. Patient may have had COVID and then developed secondary bacterial infection Patient was initially on vancomycin Rocephin azithromycin which was changed to Rocephin daily Repeat blood cultures are negative till now Continue Rocephin 2 g IV q.day Post intubation patient has been hypotensive and was on Levophed temporarily which has been weaned off after fluid bolus Patient does have history of IV drug abuse but his HIV screen was negative 10/3 fevers overnight. Earlier patient was paralyzed. UA was checked and was unremarkable. CT recently done as above. WBC has normalized. Continue current treatment. If persistent will recheck blood cultures (4) Type 2 diabetes mellitus: Code(s): E11.9 - Type 2 diabetes mellitus without complications Status: Acute Assessment and Plan: Change sliding scale to q.4 hours Continue lantus (5) Pneumonia due to COVID-19 virus: Code(s): U07.1 - COVID-19; J12.82 - Pneumonia due to coronavirus disease 2019 Status: Acute Assessment and Plan: See above (6) Pneumonia: Code
[2023-08-12 09:20] LABS: Glucose Point of Care 225 mg/dl (65-105)
[2023-08-12 09:36] LABS: Creatine Kinase 106 U/L (55-170); Uric Acid 4.4 mg/dL (3.5-8.5)
--- NOTE | 2023-08-12 11:02 | PCNFU ---
Nutrition Follow-Up Complete: Inadequate protein energy intake from enteral nutrition related to increased needs from mechanical ventilation, as evidenced by predictive equations Goal: Meet estimated protein energy needs Tolerate tube feeding at goal Patient is meeting current goal. We will continue current goal. Pt current nutrition is Vital HP at 60 ml/hr. Last recorded weight is 95.3 kg,down from 99.7 kg on admit Bowel Motility:+BM report 08/12 Labs Reviewed:TG 320,Alb 2.8,Glu 208 Meds Noted:Precedex, Versed, Morphine,Propofol 2.92 ml/hr=77 gms Skin: scab bilateral legs Additional Notes: Patient remains on mechanical vent. Tube feedings of Vital HP being tolerated at 60 ml/hr which are providing 1320 kcals/115 gm protein/1103 ml water. Prosource once daily providing an additional 80 kcals and 20 gms protein. Total Nutrition: 1477 kcals/135 gms protein/1103 ml water. Meeting 98% caloric needs at 15 kcal/kg, 89% protein needs at 2.0 gm/kg. Flush 30 ml q 4 hours. Agree with diet orders at this time. Monitoring tube feeding tolerance, labs, medications, weights, stool patterns. Follow daily in ICU rounds, reassess Tuesdays and Fridays
[2023-08-12 12:03] LABS: Glucose Point of Care 288 mg/dl (65-105)
--- NOTE | 2023-08-12 12:51 | P.CDI_ITS ---
Already detailed in progress note CDI Query Clarification Request CHF noted in the assessment and plan. Elevated BNP on 08/05/23 lab work. Pulmonary edema noted on chest xray 08/10/23 Please specify type and acuity of heart failure if known. * Acute * Chronic * Acute on Chronic * Unknown * Systolic * Diastolic * Combined Systolic and Diastolic * Unknown
--- NOTE | 2023-08-12 12:51 | WPDCDIQUERY2 ---
CDI Query Clarification Request CHF noted in the assessment and plan. Elevated BNP on 08/05/23 lab work. Pulmonary edema noted on chest xray 08/10/23 Please specify type and acuity of heart failure if known. Acute Chronic Acute on Chronic Unknown Systolic Diastolic Combined Systolic and Diastolic Unknown
[2023-08-12] MEDS: MORPHINE 50 MG/NS 100ML (*CRX) 50 MG/100 ML BAG 14 MG IV CONT ×2 (15:59→21:53)
[2023-08-12 16:16] LABS: Glucose Point of Care 278 mg/dl (65-105)
[2023-08-12] MEDS: dexmedeTOMIDine 400 MCG/100 ML 400 MCG/100 ML BAG 26.35 MCG IV CONT ×2 (17:23→20:51)
[2023-08-12 19:59] LABS: Glucose Point of Care 187 mg/dl (65-105)
[2023-08-12 23:51] LABS: Glucose Point of Care 221 mg/dl (65-105)
[2023-08-13] VITALS (56 sets, daily range): BP systolic 120–142; BP diastolic 58–76; PULSE 62–80; RESP 17–35; TEMP 37.4–37.9; O2SAT 96–99
[2023-08-13] MEDS: dexmedeTOMIDine 400 MCG/100 ML 400 MCG/100 ML BAG 26.35 MCG IV CONT ×4 (00:22→12:18)
[2023-08-13] MEDS: ALBUTEROL SULFATE NEB 2.5 MG/3 ML INH INHALATION ×4 (01:26→20:12)
[2023-08-13] MEDS: IPRATROPIUM BR 0.02% INH SOLN 0.5 MG/2.5 ML VIAL INHALATION ×4 (01:26→20:11)
[2023-08-13] MEDS: PROPOFOL IV EMULSION 100 ML 5.83 MG IV CONT (02:48)
[2023-08-13] MEDS: MORPHINE 50 MG/NS 100ML (*CRX) 50 MG/100 ML BAG 14 MG IV CONT (04:30)
[2023-08-13] MEDS: METOCLOPRAMIDE HCL 10 MG TABLET FEED TUBE ×3 (04:57→17:02)
[2023-08-13] MEDS: CENTRAL LINE FLUSH 10 ML IV PUSH ×2 (04:57→20:36)
[2023-08-13 04:59] LABS: Glucose Point of Care 208 mg/dl (65-105)
[2023-08-13] MEDS: INSULIN ASPART (*BKC) 100 UNITS/ML SUB-Q ×5 (05:02→20:36)
[2023-08-13 05:21] LABS: Alveolar/Arterial O2 Gradient 135.9 mmHg; Base Excess ABG 5.8 mEq/l (+/-2.0); Carboxyhemoglobin 0.3 % THb (0-2.0); Fractional Inspired Oxygen 35 %; HCO3 ABG 29.6 mEq/l (22.0-26.0); Methemoglobin ABG 0.3 %THb (0-1.5); Oxygen Content ABG 12.6 %vol (16.0-22.0); Oxygen Saturation ABG 94.8 % (95.0-100.0); Oxyhemoglobin 92.5 % THb (90.0-100.0); PCO2 ABG 39.5 mmHg (35.0-45.0); PO2 ABG 67.7 mmHg (80.0-100.0); PO2 FiO2 Ratio Arterial Blood 1.93 %; Reduced Hemoglobin 6.9 %THb (0-5.0); Total Hemoglobin 9.6 g/dL (12.0-18.0); pH ABG 7.492 (7.350-7.450)
[2023-08-13 05:22] LABS: Device VENTILATOR; Modified Allen's Test Pass; Site Drawn RIGHT RADIAL
[2023-08-13 05:23] LABS: Arterial Blood Gas PEEP 8 cmH2O; Arterial Blood Gas Tidal Volume 450 ml; Arterial Blood Gas Vent Mode CMV; Arterial Blood Gas Ventilator rate 25 /MIN
[2023-08-13 05:52] LABS: Basophils Percent Auto 0.1 % (0.2-1.2); Eosinophils Absolute Auto 0.3 K/mm3 (0-0.3); Eosinophils Percent Auto 2.9 % (0-4.4); Hemoglobin 7.1 g/dL (14.0-18.0); Immature Granulocyte Absolute 0.16 K/mm3 (0.00-0.031); Immature Granulocyte Percent A 1.7 % (0-0.5); Lymphocytes Absolute Auto 2.51 K/mm3 (0.9-3.2); Lymphocytes Percent Auto 25.9 % (18.3-44.2); Mean Corpuscular HGB Conc 29.6 g/dl (32-36); Mean Corpuscular Volume 84.5 fl (80-100); Mean Platelet Volume 10.1 fl (7.4-10.4); Monocytes Absolute Auto 0.4 K/mm3 (0.1-0.6); Monocytes Percent Auto 4.1 % (2.6-8.5); Neutrophils Absolute Auto 6.3 K/mm3 (1.3-6.7); Neutrophils Percent Auto 65.3 % (45.5-73.1); Platelet Count Result 204 k/mm3 (150-375); Red Blood Count 2.84 M/mm3 (4.6-6.20); Red Cell Distribution Width 15.9 % (11.5-14.5); White Blood Count 9.7 K/mm3 (4.5-10.0)
[2023-08-13 05:58] LABS: Alanine Aminotransferase 17 U/L (6-50); Albumin Level 2.8 g/dL (3.5-5.1); Alkaline Phosphatase 102 U/L (38-126); Anion Gap 2 mmol/L (8-16); Aspartate Amino Transferase 27 U/L (17-59); Bilirubin,Total 0.6 mg/dL (0.2-1.3); Blood Urea Nitrogen 36 mg/dL (9-20); Calcium 7.8 mg/dL (8.4-10.2); Carbon Dioxide 33 mmol/L (22-30); Chloride 102 mmol/L (98-107); Estimated CRCL calculation 110 ml/min; Estimated Glomerular Filt Rate > 60; Glucose 254 mg/dL (65-110); Magnesium 1.7 mg/dL (1.6-2.3); Potassium 4.1 mmol/L (3.4-5.0); Sodium 137 mmol/L (137-145); Triglycerides 305 mg/dL (<150)
[2023-08-13 07:50] LABS: Glucose Point of Care 238 mg/dl (65-105)
[2023-08-13] MEDS: DEXAMETHASONE 2 MG TABLET 6 MG FEED TUBE (07:59)
[2023-08-13] MEDS: cefTRIAXone 2 GM/NS 100 ML 2 GM/100 ML BAG IVPB (08:01)
[2023-08-13] MEDS: ENOXAPARIN 40 MG/0.4 ML SYRINGE SUB-Q (08:01)
[2023-08-13] MEDS: INSULIN GLARGINE (*BKC) 100 UNITS/ML 30 UNITS SUB-Q (08:02)
[2023-08-13] MEDS: MINERAL OIL/WHITE PETROLATUM OINTMENT 1 APPLIC EACH EYE ×2 (08:02→20:35)
[2023-08-13] MEDS: PANTOPRAZOLE SODIUM IV 40 MG VIAL IV PUSH ×2 (08:03→20:35)
[2023-08-13] MEDS: MIDAZOLAM 100MG/NS 100ML(*CRX) 100 MG/100 ML BAG 12 MG IV CONT ×2 (08:28→16:57)
--- NOTE | 2023-08-13 08:30 | WPDINTPN ---
Progress Note: A&P Assessment and Plan (1) Acute respiratory failure with hypoxia: Code(s): J96.01 - Acute respiratory failure with hypoxia Status: Acute Assessment and Plan: Acute hypoxic Respiratory failure secondary to combination of COVID pneumonia, bacterial pneumonia from Streptococcus pneumoniae and component of congestive heart failure His COVID PCR was positive. His blood culture positive for Streptococcus pneumoniae and he had elevated procalcitonin level. His BNP was also elevated Through the hospital course patient's hypoxia has been gradually getting worse as he was on nasal cannula presentation later moved to Airvo and was BiPAP. Overnight she deteriorated and was intubated. Post intubation patient remained hypoxic with low saturation requiring high PEEP. He was a synchronous with the ventilator and required neuromuscular jessee. 08/09 morning he developed spontaneous pneumothorax and a right-sided chest tube was placed-see below 08/10 Vent settings reviewed. Continue PEEP of 12 and FiO2 40%. Will supine patient this morning and re prone after 6 hours. If patient tolerates will wean PEEP down further. 08/11 FiO2 30% peep of 8. Will supine patient today. Will discontinue Nimbex infusion and monitor 08/12 off Nimbex. Tolerated supine ventilation through the night. FiO2 30% peep of 8. Chest x-ray still shows diffuse bilateral infiltrates and a small apical pneumothorax. He has not been tolerating lowering of sedation at this time Decrease ventilator rate to 25 08/13 patient quickly became tachypneic and a synchronous with the ventilator on loading sedation. Not ready for weaning at this time. ABG chest x-ray and ventilator settings reviewed. Decrease tidal volume to 420 and rate to 22. Continue bronchodilator Continue dexamethasone Completed course of remdesivir Patient not treated with immunomodulators due to for strep pneumo pneumonia and bacteremia. His CRP is low at 5.1 CT chest 08/10 Diffuse bilateral pulmonary opacities likely representing pulmonary edema overlying somewhat improving infectious changes. Changes of ARDS should also be considered in the differential. Small right pneumothorax. (2) Spontaneous pneumothorax: Code(s): J93.83 - Other pneumothorax Status: Acute Assessment and Plan: Patient developed spontaneous pneumothorax post intubation likely from barotrauma. 08/09 status post chest tube placement on the right by general surgery 08/10 CT scan done in supine position showed pneumothorax anteriorly while chest tube was posterior to the lung. Chest x-ray done this morning does not show any pneumothorax. Continue to monitor. No air leak at this time. Chest tube is in acceptable place on images 10/3 small apical pneumothorax on the chest x-ray. Chest tube is in place. No air leak at this time 10/ chest x-ray reviewed (3) Sepsis: Code(s): A41.9 - Sepsis, unspecified organism Status: Acute Assessment and Plan: Patient presented with picture of pneumonia with positive COVID PCR and procalcitonin level. His blood culture came back positive for Streptococcus pneumoniae. Patient may have had COVID and then developed secondary bacterial infection Patient was initially on vancomycin Rocephin azithromycin which was changed to Rocephin daily Repeat blood cultures are negative till now Continue Rocephin 2 g IV q.day Post intubation patient has been hypotensive and was on Levophed temporarily which has been weaned off after fluid bolus Patient does have history of IV drug abuse but his HIV screen was negative 10/3 fevers overnight. Earlier patient was paralyzed. UA was checked and was unremarkable. CT recently done as above. WBC has normalized. Continue current treatment. If persistent will recheck blood cultures (4) Type 2 diabetes mellitus: Code(s): E11.9 - Type 2 diabetes mellitus without complications Status: Acute Assessment and Plan: Apurva
[2023-08-13] MEDS: PROPOFOL IV EMULSION 100 ML 17.5 MG IV CONT ×3 (10:04→20:32)
--- NOTE | 2023-08-13 10:29 | PCFNICU ---
ICU Rounding Note: Pt current nutrition is Vital HP at 60 ml/hr. Last recorded weight is 94.7 kg, down from 99.7 kg on admit Bowel Motility: Last reported BM 08/12 Labs Reviewed:Glu 131, GFR 12, BUN 101, Cr 4.52,Glu 131, Alb 3.1 Meds Noted:Reglan, Propofol 30 [id number] kcals, Versed, Morphine, Precedex. Skin: scab Bilateral legs Additional Notes: Patient remains on mechanical vent and tube feedings of Vital HP at 60 ml/hr with Protein Modular of Prosouce once daily. Total Nutrition at this time: 1862 kcals/135 gms protein/1103 ml water. Flush 30 ml q 4 hours. Due to Propofol infusion recommend continuing current tube feeding rate. Will continue to monitor propofol infusion for any rate change recommendations. Monitoring tube feeding tolerance, labs, medications, weights, stool patterns every Friday and Friday. Follow daily in ICU rounds
[2023-08-13] MEDS: MORPHINE 50 MG/NS 100ML (*CRX) 50 MG/100 ML BAG 20 MG IV CONT ×3 (10:32→21:27)
[2023-08-13 12:00] LABS: Glucose Point of Care 285 mg/dl (65-105)
[2023-08-13] MEDS: dexmedeTOMIDine 400 MCG/100 ML 400 MCG/100 ML BAG 23.95 MCG IV CONT ×2 (16:10→20:31)
[2023-08-13 16:15] LABS: Glucose Point of Care 305 mg/dl (65-105)
[2023-08-13 19:42] LABS: Glucose Point of Care 216 mg/dl (65-105)
[2023-08-14] VITALS (57 sets, daily range): BP systolic 112–146; BP diastolic 59–75; PULSE 59–71; RESP 17–25; TEMP 37.1–37.7; O2SAT 97–100
[2023-08-14] MEDS: METOCLOPRAMIDE HCL 10 MG TABLET FEED TUBE ×4 (00:30→17:17)
[2023-08-14] MEDS: dexmedeTOMIDine 400 MCG/100 ML 400 MCG/100 ML BAG 23.95 MCG IV CONT ×3 (00:31→08:58)
[2023-08-14 00:40] LABS: Glucose Point of Care 189 mg/dl (65-105)
[2023-08-14] MEDS: MIDAZOLAM 100MG/NS 100ML(*CRX) 100 MG/100 ML BAG 12 MG IV CONT ×2 (01:24→09:18)
[2023-08-14] MEDS: ALBUTEROL SULFATE NEB 2.5 MG/3 ML INH INHALATION ×4 (02:01→20:34)
[2023-08-14] MEDS: IPRATROPIUM BR 0.02% INH SOLN 0.5 MG/2.5 ML VIAL INHALATION ×4 (02:01→20:34)
[2023-08-14] MEDS: MORPHINE 50 MG/NS 100ML (*CRX) 50 MG/100 ML BAG 20 MG IV CONT ×2 (02:27→07:31)
[2023-08-14] MEDS: PROPOFOL IV EMULSION 100 ML 29.16 MG IV CONT ×2 (02:27→05:11)
[2023-08-14] MEDS: INSULIN ASPART (*BKC) 100 UNITS/ML SUB-Q ×4 (04:32→16:19)
[2023-08-14] MEDS: CENTRAL LINE FLUSH 10 ML IV PUSH ×3 (05:10→22:00)
[2023-08-14 05:21] LABS: Basophils Percent Auto 0.3 % (0.2-1.2); Eosinophils Absolute Auto 0.3 K/mm3 (0-0.3); Eosinophils Percent Auto 2.4 % (0-4.4); Hematocrit 24.4 % (42.0-52.0); Hemoglobin 7.2 g/dL (14.0-18.0); Immature Granulocyte Absolute 0.14 K/mm3 (0.00-0.031); Immature Granulocyte Percent A 1.3 % (0-0.5); Lymphocytes Absolute Auto 2.31 K/mm3 (0.9-3.2); Lymphocytes Percent Auto 21.4 % (18.3-44.2); Mean Corpuscular HGB Conc 29.5 g/dl (32-36); Mean Corpuscular Hemoglobin 25.5 pg (26-34); Mean Corpuscular Volume 86.5 fl (80-100); Mean Platelet Volume 10.5 fl (7.4-10.4); Monocytes Absolute Auto 0.5 K/mm3 (0.1-0.6); Monocytes Percent Auto 4.8 % (2.6-8.5); Neutrophils Absolute Auto 7.5 K/mm3 (1.3-6.7); Neutrophils Percent Auto 69.8 % (45.5-73.1); Platelet Count Result 237 k/mm3 (150-375); Red Blood Count 2.82 M/mm3 (4.6-6.20); White Blood Count 10.8 K/mm3 (4.5-10.0)
[2023-08-14 05:23] LABS: Glucose Point of Care 259 mg/dl (65-105)
[2023-08-14 05:30] LABS: Alanine Aminotransferase 17 U/L (6-50); Alkaline Phosphatase 99 U/L (38-126); Anion Gap 4 mmol/L (8-16); Aspartate Amino Transferase 22 U/L (17-59); Bilirubin,Total 0.5 mg/dL (0.2-1.3); Blood Urea Nitrogen 34 mg/dL (9-20); Carbon Dioxide 30 mmol/L (22-30); Chloride 100 mmol/L (98-107); Estimated CRCL calculation 125 ml/min; Estimated Glomerular Filt Rate > 60; Glucose 256 mg/dL (65-110); Magnesium 1.9 mg/dL (1.6-2.3); Potassium 4.3 mmol/L (3.4-5.0); Sodium 134 mmol/L (137-145); Triglycerides 265 mg/dL (<150)
[2023-08-14 05:56] LABS: Hypochromasia 1+ (NORMAL); Platelet Estimate Adequate (Adequate); Schistocytes None Seen (NORMAL)
[2023-08-14 06:43] LABS: PCO2 ABG 46.7 mmHg (35.0-45.0); pH ABG 7.341 (7.350-7.450)
[2023-08-14 06:44] LABS: Base Excess ABG 5.3 mEq/l (+/-2.0); HCO3 ABG 30.4 mEq/l (22.0-26.0); Oxygen Saturation ABG 96.7 % (95.0-100.0); PO2 ABG 86.1 mmHg (80.0-100.0); Total Hemoglobin 10.8 g/dL (12.0-18.0)
[2023-08-14 06:45] LABS: Alveolar/Arterial O2 Gradient 109.2 mmHg; Oxygen Content ABG 14.6 %vol (16.0-22.0); Oxyhemoglobin 95.3 % THb (90.0-100.0); PO2 FiO2 Ratio Arterial Blood 2.46 %
[2023-08-14 06:46] LABS: Device VENTILATOR; Fractional Inspired Oxygen 35 %; Modified Allen's Test Pass; Site Drawn LEFT RADIAL
[2023-08-14 06:47] LABS: Arterial Blood Gas PEEP 8 cmH2O; Arterial Blood Gas Vent Mode CMV; Arterial Blood Gas Ventilator rate 22 /MIN
[2023-08-14 06:48] LABS: Arterial Blood Gas Tidal Volume 420 ml
[2023-08-14 07:26] LABS: Glucose Point of Care 259 mg/dl (65-105)
[2023-08-14] MEDS: ENOXAPARIN 40 MG/0.4 ML SYRINGE SUB-Q (08:01)
[2023-08-14] MEDS: cefTRIAXone 2 GM/NS 100 ML 2 GM/100 ML BAG IVPB (08:01)
[2023-08-14] MEDS: INSULIN GLARGINE (*BKC) 100 UNITS/ML 30 UNITS SUB-Q (08:07)
[2023-08-14] MEDS: PANTOPRAZOLE SODIUM IV 40 MG VIAL IV PUSH ×2 (08:10→21:26)
[2023-08-14] MEDS: MINERAL OIL/WHITE PETROLATUM OINTMENT 1 APPLIC EACH EYE ×2 (08:10→21:00)
[2023-08-14] MEDS: DEXAMETHASONE 2 MG TABLET 6 MG FEED TUBE (08:29)
[2023-08-14] MEDS: INSULIN GLARGINE (*BKC) 100 UNITS/ML 40 UNITS SUB-Q (08:30)
[2023-08-14] MEDS: PROPOFOL IV EMULSION 100 ML 23.33 MG IV CONT (09:20)
--- NOTE | 2023-08-14 10:46 | WPDINTPN ---
Progress Note: A&P Assessment and Plan (1) Acute respiratory failure with hypoxia: Code(s): J96.01 - Acute respiratory failure with hypoxia Status: Acute Assessment and Plan: Acute hypoxic Respiratory failure secondary to combination of COVID pneumonia, bacterial pneumonia from Streptococcus pneumoniae and component of congestive heart failure -COVID PCR was positive. -Blood culture positive for Streptococcus pneumoniae and he had elevated procalcitonin level. His BNP was also elevated Through the hospital course patient's hypoxia has been gradually getting worse as he was on nasal cannula presentation later moved to Airvo and was BiPAP. - 08/09 :deteriorated and was intubated. Post intubation patient remained hypoxic with low saturation requiring high PEEP. He was asynchronous with the ventilator and required neuromuscular jessee. -08/09 morning he developed spontaneous pneumothorax and a right-sided chest tube was placed-see below -08/10 Vent settings reviewed. Continue PEEP of 12 and FiO2 40%. Patient had to be prone -08/11 FiO2 30% peep of 8. Placed in supine position, discontinued Nimbex infusion -08/12 OFF Nimbex. Tolerated supine ventilation through the night. FiO2 30% peep of 8. Chest x-ray still shows diffuse bilateral infiltrates and a small apical pneumothorax. He has not been tolerating lowering of sedation at this time 08/13 patient quickly became tachypneic and asynchronous with the ventilator on lowering sedation. Not ready for weaning at this time. ABG chest x-ray and ventilator settings reviewed. Decrease tidal volume to 420 and rate to 22. 08/14: ABGs reviewed, chest x-ray continues to show persistent patchy left basilar airspace disease Increase tidal volume to 450 mL -Continue bronchodilators -Continue dexamethasone for a total of 10 days -Completed course of remdesivir -Patient not treated with immunomodulators (Actemra on baricitinib) due to for strep pneumo pneumonia and bacteremia. His CRP is low at 5.1 08/10 CT chest Diffuse bilateral pulmonary opacities likely representing pulmonary edema overlying somewhat improving infectious changes. Changes of ARDS should also be considered in the differential. Small right pneumothorax. (2) Spontaneous pneumothorax: Code(s): J93.83 - Other pneumothorax Status: Acute Assessment and Plan: Patient developed spontaneous pneumothorax post intubation likely from barotrauma. 08/09 status post chest tube placement on the right by general surgery 08/10 CT scan done in supine position showed pneumothorax anteriorly while chest tube was posterior to the lung. Chest x-ray done this morning does not show any pneumothorax. Continue to monitor. No air leak at this time. Chest tube is in acceptable place on images 08/12 small apical pneumothorax on the chest x-ray. Chest tube is in place. No air leak at this time 08/13 chest x-ray reviewed 08/14: Chest x-ray reviewed, right-sided chest tube in place, suspected tiny apical pneumothorax (3) Sepsis: Code(s): A41.9 - Sepsis, unspecified organism Status: Acute Assessment and Plan: Patient presented with picture of pneumonia with positive COVID PCR and procalcitonin level. His blood culture came back positive for Streptococcus pneumoniae. Patient may have had COVID and then developed secondary bacterial infection Patient was initially on vancomycin Rocephin azithromycin. Vancomycin and azithromycin were discontinued -Repeat blood cultures are negative till now -Continue Rocephin 2 g IV q.day Post intubation patient has been hypotensive and was on Levophed temporarily which has been weaned off after fluid bolus Patient does have history of IV drug abuse but his HIV screen was negative, RPR nonreactive 08/12 fevers overnight. Earlier patient was paralyzed. UA was checked and was unremarkable. CT recently done as above. WBC has normalized. Continue current treatment. If persistent will r
[2023-08-14] MEDS: QUEtiapine FUMARATE 25 MG TABLET PO ×2 (11:25→21:26)
[2023-08-14 11:38] LABS: Glucose Point of Care 305 mg/dl (65-105)
--- NOTE | 2023-08-14 11:48 | PCNFU ---
Nutrition Follow-Up Complete: Inadequate protein energy intake from enteral nutrition related to increased needs from mechanical ventilation, as evidenced by predictive equations goal: Meet estimated protein energy needs Tolerate tube feeding at goal Patient is maintaining goal at this time. We will continue current goal. Pt current nutrition is Vital HP at 60 ml/hr. Last recorded weight is 92.4 kg, down from 99.7 kg on admit. Bowel Motility: +Bm reported 08/12 Labs Reviewed:TG 265,BUN 34, Glu 256, Alb 3.0,Hct 24.4,Hgb 7.2 Meds Noted: Lovenox, Seroquel, Precedex, Versed, Propofol Skin: WNL Additional Notes: Patient remains on mechanical vent and tube feedings of Vital HP at 60 ml/hr and tolerating. Protein Modular of Prosource once daily, providing an additional 80 kcals and 20 gms protein. Propofol 40 mxxh=552 kcals. Total Nutrition: 2016 kcals/135 gms protein/1103 ml water. Flush 30 ml q 4hours. Agree with diet orders at this time. Monitoring tube feeding tolerance, labs, medications, weights, stool patterns. Follow daily in ICU rounds, reassess Tuesdays and Fridays
[2023-08-14] MEDS: MORPHINE 50 MG/NS 100ML (*CRX) 50 MG/100 ML BAG 18 MG IV CONT (12:37)
[2023-08-14] MEDS: dexmedeTOMIDine 400 MCG/100 ML 400 MCG/100 ML BAG 19.16 MCG IV CONT ×3 (13:27→23:38)
[2023-08-14] MEDS: PROPOFOL IV EMULSION 100 ML 20.41 MG IV CONT ×3 (14:18→23:09)
[2023-08-14 16:25] LABS: Glucose Point of Care 324 mg/dl (65-105)
[2023-08-14] MEDS: MIDAZOLAM 100MG/NS 100ML(*CRX) 100 MG/100 ML BAG 10 MG IV CONT (18:26)
[2023-08-14] MEDS: MORPHINE 50 MG/NS 100ML (*CRX) 50 MG/100 ML BAG 16 MG IV CONT (18:41)
[2023-08-14 21:42] LABS: Glucose Point of Care 180 mg/dl (65-105)
[2023-08-15] VITALS (52 sets, daily range): BP systolic 100–162; BP diastolic 54–99; PULSE 60–100; RESP 15–28; TEMP 36.7–37.5; O2SAT 96–100
[2023-08-15 01:08] LABS: Glucose Point of Care 200 mg/dl (65-105)
[2023-08-15] MEDS: MORPHINE 50 MG/NS 100ML (*CRX) 50 MG/100 ML BAG 16 MG IV CONT ×2 (01:15→08:04)
[2023-08-15] MEDS: METOCLOPRAMIDE HCL 10 MG TABLET FEED TUBE ×4 (01:18→19:22)
[2023-08-15] MEDS: IPRATROPIUM BR 0.02% INH SOLN 0.5 MG/2.5 ML VIAL INHALATION ×4 (02:00→20:21)
[2023-08-15] MEDS: ALBUTEROL SULFATE NEB 2.5 MG/3 ML INH INHALATION ×4 (02:05→20:21)
[2023-08-15] MEDS: PROPOFOL IV EMULSION 100 ML 23.33 MG IV CONT ×3 (03:27→11:44)
[2023-08-15] MEDS: MIDAZOLAM 100MG/NS 100ML(*CRX) 100 MG/100 ML BAG 10 MG IV CONT ×2 (04:26→15:00)
[2023-08-15 04:46] LABS: Alveolar/Arterial O2 Gradient 85.6 mmHg; Base Excess ABG 4.7 mEq/l (+/-2.0); Carboxyhemoglobin 0.3 % THb (0-2.0); Fractional Inspired Oxygen 30 %; HCO3 ABG 28.9 mEq/l (22.0-26.0); Methemoglobin ABG 0.3 %THb (0-1.5); Oxygen Content ABG 11.2 %vol (16.0-22.0); Oxygen Saturation ABG 96.4 % (95.0-100.0); Oxyhemoglobin 94.5 % THb (90.0-100.0); PCO2 ABG 41.3 mmHg (35.0-45.0); PO2 ABG 79.8 mmHg (80.0-100.0); PO2 FiO2 Ratio Arterial Blood 2.66 %; Reduced Hemoglobin 4.9 %THb (0-5.0); Total Hemoglobin 8.3 g/dL (12.0-18.0); pH ABG 7.463 (7.350-7.450)
[2023-08-15 04:47] LABS: Arterial Blood Gas PEEP 8 cmH2O; Arterial Blood Gas Vent Mode CMV; Arterial Blood Gas Ventilator rate 22 /MIN; Device VENTILATOR; Modified Allen's Test Unable to perform; Site Drawn RIGHT RADIAL
[2023-08-15 04:48] LABS: Arterial Blood Gas Tidal Volume 450 ml
[2023-08-15] MEDS: dexmedeTOMIDine 400 MCG/100 ML 400 MCG/100 ML BAG 19.16 MCG IV CONT (05:19)
[2023-08-15] MEDS: CENTRAL LINE FLUSH 10 ML IV PUSH ×3 (05:21→20:58)
[2023-08-15 05:39] LABS: Basophils Percent Auto 0.3 % (0.2-1.2); Eosinophils Absolute Auto 0.2 K/mm3 (0-0.3); Eosinophils Percent Auto 2.2 % (0-4.4); Hematocrit 23.9 % (42.0-52.0); Hemoglobin 7.2 g/dL (14.0-18.0); Immature Granulocyte Absolute 0.06 K/mm3 (0.00-0.031); Immature Granulocyte Percent A 0.6 % (0-0.5); Lymphocytes Absolute Auto 2.43 K/mm3 (0.9-3.2); Lymphocytes Percent Auto 23.5 % (18.3-44.2); Mean Corpuscular HGB Conc 30.1 g/dl (32-36); Mean Corpuscular Hemoglobin 25.9 pg (26-34); Mean Platelet Volume 10.3 fl (7.4-10.4); Monocytes Absolute Auto 0.5 K/mm3 (0.1-0.6); Monocytes Percent Auto 5.2 % (2.6-8.5); Neutrophils Percent Auto 68.2 % (45.5-73.1); Platelet Count Result 290 k/mm3 (150-375); Red Blood Count 2.78 M/mm3 (4.6-6.20); Red Cell Distribution Width 16.1 % (11.5-14.5); White Blood Count 10.3 K/mm3 (4.5-10.0)
[2023-08-15 05:50] LABS: Alanine Aminotransferase 18 U/L (6-50); Alkaline Phosphatase 96 U/L (38-126); Anion Gap 2 mmol/L (8-16); Aspartate Amino Transferase 22 U/L (17-59); Bilirubin,Total 0.5 mg/dL (0.2-1.3); Blood Urea Nitrogen 35 mg/dL (9-20); Calcium 8.3 mg/dL (8.4-10.2); Carbon Dioxide 30 mmol/L (22-30); Chloride 101 mmol/L (98-107); Estimated CRCL calculation 125 ml/min; Estimated Glomerular Filt Rate > 60; Glucose 231 mg/dL (65-110); Magnesium 1.8 mg/dL (1.6-2.3); Phosphorus 4.2 mg/dL (2.5-4.5); Potassium 4.3 mmol/L (3.4-5.0); Sodium 133 mmol/L (137-145); Triglycerides 255 mg/dL (<150)
[2023-08-15 07:50] LABS: Glucose Point of Care 239 mg/dl (65-105)
[2023-08-15] MEDS: QUEtiapine FUMARATE 25 MG TABLET PO ×2 (08:05→11:00)
[2023-08-15] MEDS: DEXAMETHASONE 2 MG TABLET 6 MG FEED TUBE (08:05)
[2023-08-15] MEDS: INSULIN ASPART (*BKC) 100 UNITS/ML SUB-Q ×2 (08:06→11:38)
[2023-08-15] MEDS: PANTOPRAZOLE SODIUM IV 40 MG VIAL IV PUSH ×2 (08:06→20:58)
[2023-08-15] MEDS: ENOXAPARIN 40 MG/0.4 ML SYRINGE SUB-Q (08:06)
[2023-08-15] MEDS: cefTRIAXone 2 GM/NS 100 ML 2 GM/100 ML BAG IVPB (08:06)
[2023-08-15] MEDS: MAGNESIUM SULF 2 GM/WATER 50ML 2 GM/50 ML BAG IVPB (08:08)
[2023-08-15] MEDS: MINERAL OIL/WHITE PETROLATUM OINTMENT 1 APPLIC EACH EYE ×2 (08:12→20:58)
[2023-08-15] MEDS: INSULIN GLARGINE (*BKC) 100 UNITS/ML 46 UNITS SUB-Q (08:15)
[2023-08-15] MEDS: polyethylene glycoL 3350 17 GM POWD.PACK PO (11:00)
[2023-08-15] MEDS: oxyCODONE HCL (*CRX) 5 MG TAB IR PO ×3 (11:00→20:57)
[2023-08-15 11:41] LABS: Glucose Point of Care 283 mg/dl (65-105)
--- NOTE | 2023-08-15 13:57 | PCFNICU ---
ICU Rounding Note: Pt current nutrition is . Nutrition recommendation: Last recorded weight is 90 kg. Bowel Motility: Labs Reviewed: Meds Noted: Skin: Additional Notes: Following daily in ICU rounds. Monitoring tube feeding tolerance, labs, medications, weights, stool patterns. Follow daily in ICU rounds, reassess Tuesdays and Fridays.
--- NOTE | 2023-08-15 13:58 | PCFNICU ---
ICU Rounding Note: Pt current nutrition is Vital HP @ 60 ml/h: 1320 kcal, 115 g protein, 1103 ml free water. +Prosource TF once per day. Total 1400 kcal, 135 g protein, 1103 ml free water Nutrition recommendation: Continue with same nutrition care plan and TF orders. Agree with current orders Last recorded weight is 90 kg. Bowel Motility: Last BM 08/12/23 Labs Reviewed: Hgb 7.2, Hct 23.9, Alb 3.0, Na 133, BUN 35, Glu 239, TRIG 255 Meds Noted: Seroquel, propofol, Versed, morphine, miralax, precedex Skin: No pressure Additional Notes: Continues with vent and tube feedings. Propofol @ 23.33 ml/h: 616 kcal. Tolerating tube feedings well. Continue with current tube feeding orders. Agree with orders Following daily in ICU rounds. Monitoring tube feeding tolerance, labs, medications, weights, stool patterns. Follow daily in ICU rounds, reassess Tuesdays and Fridays.
[2023-08-15 15:53] LABS: Glucose Point of Care 181 mg/dl (65-105)
[2023-08-15] MEDS: PROPOFOL IV EMULSION 100 ML 29.16 MG IV CONT ×3 (16:17→23:23)
[2023-08-15] MEDS: QUEtiapine FUMARATE 25 MG TABLET 50 MG PO (20:57)
[2023-08-15 21:43] LABS: Glucose Point of Care 129 mg/dl (65-105)
[2023-08-15] MEDS: LORazepam INJ (*CRX) 2 MG/ML VIAL IV PUSH (23:24)
[2023-08-16] VITALS (54 sets, daily range): BP systolic 136–165; BP diastolic 77–89; PULSE 91–106; RESP 18–30; TEMP 36.6–37.6; O2SAT 94–100
[2023-08-16] MEDS: MIDAZOLAM 100MG/NS 100ML(*CRX) 100 MG/100 ML BAG 13 MG IV CONT ×2 (00:23→08:37)
[2023-08-16] MEDS: METOCLOPRAMIDE HCL 10 MG TABLET FEED TUBE ×4 (00:24→18:19)
[2023-08-16] MEDS: oxyCODONE HCL (*CRX) 5 MG TAB IR PO ×6 (00:24→20:14)
[2023-08-16 00:52] LABS: Glucose Point of Care 134 mg/dl (65-105)
[2023-08-16] MEDS: IPRATROPIUM BR 0.02% INH SOLN 0.5 MG/2.5 ML VIAL INHALATION ×4 (01:33→21:00)
[2023-08-16] MEDS: ALBUTEROL SULFATE NEB 2.5 MG/3 ML INH INHALATION ×4 (01:46→21:00)
[2023-08-16] MEDS: PROPOFOL IV EMULSION 100 ML 29.16 MG IV CONT ×4 (02:20→23:14)
[2023-08-16 05:09] LABS: Glucose Point of Care 170 mg/dl (65-105)
[2023-08-16 05:15] LABS: Basophils Percent Auto 0.3 % (0.2-1.2); Eosinophils Absolute Auto 0.3 K/mm3 (0-0.3); Eosinophils Percent Auto 2.3 % (0-4.4); Hematocrit 26.4 % (42.0-52.0); Immature Granulocyte Absolute 0.08 K/mm3 (0.00-0.031); Immature Granulocyte Percent A 0.6 % (0-0.5); Lymphocytes Absolute Auto 2.54 K/mm3 (0.9-3.2); Lymphocytes Percent Auto 19.9 % (18.3-44.2); Mean Corpuscular HGB Conc 30.3 g/dl (32-36); Mean Corpuscular Hemoglobin 25.6 pg (26-34); Mean Corpuscular Volume 84.6 fl (80-100); Monocytes Absolute Auto 0.8 K/mm3 (0.1-0.6); Monocytes Percent Auto 6.6 % (2.6-8.5); Neutrophils Percent Auto 70.3 % (45.5-73.1); Platelet Count Result 412 k/mm3 (150-375); Red Blood Count 3.12 M/mm3 (4.6-6.20); Red Cell Distribution Width 16.8 % (11.5-14.5); White Blood Count 12.7 K/mm3 (4.5-10.0)
[2023-08-16 05:28] LABS: Alanine Aminotransferase 24 U/L (6-50); Albumin Level 3.3 g/dL (3.5-5.1); Alkaline Phosphatase 119 U/L (38-126); Anion Gap 7 mmol/L (8-16); Aspartate Amino Transferase 27 U/L (17-59); Bilirubin,Total 0.5 mg/dL (0.2-1.3); Blood Urea Nitrogen 28 mg/dL (9-20); CRP 0.9 mg/dL (<1.0); Calcium 8.7 mg/dL (8.4-10.2); Carbon Dioxide 28 mmol/L (22-30); Chloride 102 mmol/L (98-107); Estimated CRCL calculation 144 ml/min; Estimated Glomerular Filt Rate > 60; Glucose 173 mg/dL (65-110); Magnesium 1.9 mg/dL (1.6-2.3); Phosphorus 4.7 mg/dL (2.5-4.5); Potassium 3.7 mmol/L (3.4-5.0); Sodium 137 mmol/L (137-145); Triglycerides 264 mg/dL (<150)
[2023-08-16 06:11] LABS: Alveolar/Arterial O2 Gradient 104.5 mmHg; Base Excess ABG 6.5 mEq/l (+/-2.0); Carboxyhemoglobin 0.3 % THb (0-2.0); Fractional Inspired Oxygen 30 %; HCO3 ABG 30.5 mEq/l (22.0-26.0); Methemoglobin ABG 0.4 %THb (0-1.5); Oxyhemoglobin 90.6 % THb (90.0-100.0); PCO2 ABG 41.3 mmHg (35.0-45.0); PO2 ABG 60.9 mmHg (80.0-100.0); PO2 FiO2 Ratio Arterial Blood 2.03 %; Reduced Hemoglobin 8.7 %THb (0-5.0); Total Hemoglobin 9.4 g/dL (12.0-18.0); pH ABG 7.486 (7.350-7.450)
[2023-08-16 06:12] LABS: Device VENTILATOR; Modified Allen's Test Pass; Site Drawn RIGHT RADIAL
[2023-08-16 06:13] LABS: Arterial Blood Gas PEEP 8 cmH2O; Arterial Blood Gas Tidal Volume 450 ml; Arterial Blood Gas Vent Mode CMV; Arterial Blood Gas Ventilator rate 20 /MIN
[2023-08-16] MEDS: CENTRAL LINE FLUSH 10 ML IV PUSH ×3 (06:13→20:15)
[2023-08-16] MEDS: polyethylene glycoL 3350 17 GM POWD.PACK PO (08:35)
[2023-08-16] MEDS: PANTOPRAZOLE SODIUM IV 40 MG VIAL IV PUSH ×2 (08:35→20:14)
[2023-08-16] MEDS: QUEtiapine FUMARATE 25 MG TABLET 50 MG PO (08:35)
[2023-08-16] MEDS: POTASSIUM CHLORIDE 20 MEQ PACKET (FOR LIQUID) 40 MEQ FEED TUBE (08:36)
[2023-08-16] MEDS: cefTRIAXone 2 GM/NS 100 ML 2 GM/100 ML BAG IVPB (08:41)
[2023-08-16] MEDS: MAGNESIUM SULF 2 GM/WATER 50ML 2 GM/50 ML BAG IVPB (08:41)
[2023-08-16] MEDS: MINERAL OIL/WHITE PETROLATUM OINTMENT 1 APPLIC EACH EYE (08:42)
[2023-08-16] MEDS: ENOXAPARIN 40 MG/0.4 ML SYRINGE SUB-Q (08:42)
[2023-08-16] MEDS: INSULIN GLARGINE (*BKC) 100 UNITS/ML 46 UNITS SUB-Q (08:51)
[2023-08-16 09:00] LABS: Glucose Point of Care 198 mg/dl (65-105)
[2023-08-16] MEDS: QUEtiapine FUMARATE 25 MG TABLET PO (11:10)
[2023-08-16 12:34] LABS: Glucose Point of Care 190 mg/dl (65-105)
--- NOTE | 2023-08-16 13:19 | WPDINTPN ---
Progress Note: A&P Assessment and Plan (1) Acute respiratory failure with hypoxia: Code(s): J96.01 - Acute respiratory failure with hypoxia Status: Acute Assessment and Plan: Acute hypoxic Respiratory failure secondary to combination of COVID pneumonia, bacterial pneumonia from Streptococcus pneumoniae and component of congestive heart failure -COVID PCR was positive. -Blood culture positive for Streptococcus pneumoniae and he had elevated procalcitonin level. His BNP was also elevated Through the hospital course patient's hypoxia has been gradually getting worse as he was on nasal cannula presentation later moved to Airvo and was BiPAP. - 08/09 :deteriorated and was intubated. Post intubation patient remained hypoxic with low saturation requiring high PEEP. He was asynchronous with the ventilator and required neuromuscular jessee. -08/09 morning he developed spontaneous pneumothorax and a right-sided chest tube was placed-see below -08/10 Vent settings reviewed. Continue PEEP of 12 and FiO2 40%. Patient had to be prone -08/11 FiO2 30% peep of 8. Placed in supine position, discontinued Nimbex infusion -08/12 OFF Nimbex. Tolerated supine ventilation through the night. FiO2 30% peep of 8. Chest x-ray still shows diffuse bilateral infiltrates and a small apical pneumothorax. He has not been tolerating lowering of sedation at this time 08/13 patient quickly became tachypneic and asynchronous with the ventilator on lowering sedation. Not ready for weaning at this time. ABG chest x-ray and ventilator settings reviewed. Decrease tidal volume to 420 and rate to 22. 08/14: ABGs reviewed, chest x-ray continues to show persistent patchy left basilar airspace disease Increase tidal volume to 450 mL 08/16: Chest x-ray this more: Increased left lower lung infiltrate and mild infiltrate or atelectasis in the right lower lung since 08/15/2023? -patient placed on a ASV mode, was requiring high pressure support so placed him back on CMV mode of ventilation -Continue bronchodilators -Continue dexamethasone for a total of 10 days -Completed course of remdesivir -Patient not treated with immunomodulators (Actemra on baricitinib) due to for strep pneumo pneumonia and bacteremia. His CRP is low at 5.1 Currently on propofol and Versed infusion, patient is on oxycodone per tube, Seroquel. Off Precedex and fentanyl infusion 08/10 CT chest Diffuse bilateral pulmonary opacities likely representing pulmonary edema overlying somewhat improving infectious changes. Changes of ARDS should also be considered in the differential. Small right pneumothorax. (2) Spontaneous pneumothorax: Code(s): J93.83 - Other pneumothorax Status: Acute Assessment and Plan: Patient developed spontaneous pneumothorax post intubation likely from barotrauma. 08/09 status post chest tube placement on the right by general surgery 08/10 CT scan done in supine position showed pneumothorax anteriorly while chest tube was posterior to the lung. Chest x-ray done this morning does not show any pneumothorax. Continue to monitor. No air leak at this time. Chest tube is in acceptable place on images 08/12 small apical pneumothorax on the chest x-ray. Chest tube is in place. No air leak at this time 08/13 chest x-ray reviewed 08/14: Chest x-ray reviewed, right-sided chest tube in place, suspected tiny apical pneumothorax (3) Sepsis: Code(s): A41.9 - Sepsis, unspecified organism Status: Acute Assessment and Plan: Patient presented with picture of pneumonia with positive COVID PCR and procalcitonin level. His blood culture came back positive for Streptococcus pneumoniae. Patient may have had COVID and then developed secondary bacterial infection Patient was initially on vancomycin Rocephin azithromycin. Vancomycin and azithromycin were discontinued -Repeat blood cultures are negative till now -Continue Rocephin 2 g IV q.day Post intubation patien
[2023-08-16] MEDS: PROPOFOL IV EMULSION 100 ML 23.33 MG IV CONT (13:31)
[2023-08-16 16:12] LABS: Glucose Point of Care 164 mg/dl (65-105)
[2023-08-16] MEDS: MIDAZOLAM 100MG/NS 100ML(*CRX) 100 MG/100 ML BAG 10 MG IV CONT (16:19)
[2023-08-16] MEDS: PROPOFOL IV EMULSION 100 ML 17.5 MG IV CONT (18:48)
[2023-08-16] MEDS: QUEtiapine FUMARATE 25 MG TABLET 75 MG PO (20:15)
[2023-08-16] MEDS: LORazepam INJ (*CRX) 2 MG/ML VIAL IV PUSH (20:16)
[2023-08-16 23:57] LABS: Glucose Point of Care 190 mg/dl (65-105)
[2023-08-16 23:57] LABS: Glucose Point of Care 173 mg/dl (65-105)
[2023-08-17] VITALS (55 sets, daily range): BP systolic 108–161; BP diastolic 59–89; PULSE 66–102; RESP 11–28; TEMP 37.3–37.8; O2SAT 92–100
[2023-08-17] MEDS: METOCLOPRAMIDE HCL 10 MG TABLET FEED TUBE ×2 (01:00→05:02)
[2023-08-17] MEDS: MIDAZOLAM 100MG/NS 100ML(*CRX) 100 MG/100 ML BAG 10 MG IV CONT (01:53)
[2023-08-17] MEDS: oxyCODONE HCL (*CRX) 5 MG TAB IR PO ×5 (01:54→20:14)
[2023-08-17] MEDS: PROPOFOL IV EMULSION 100 ML 29.16 MG IV CONT (02:09)
[2023-08-17] MEDS: LABETALOL HCL INJ 100 MG/20 ML VIAL 20 MG IV PUSH (02:10)
[2023-08-17] MEDS: ALBUTEROL SULFATE NEB 2.5 MG/3 ML INH INHALATION ×4 (02:55→21:01)
[2023-08-17] MEDS: IPRATROPIUM BR 0.02% INH SOLN 0.5 MG/2.5 ML VIAL INHALATION ×4 (02:55→21:01)
[2023-08-17] MEDS: CENTRAL LINE FLUSH 10 ML IV PUSH ×3 (05:02→20:15)
[2023-08-17] MEDS: LORazepam INJ (*CRX) 2 MG/ML VIAL IV PUSH ×3 (05:03→20:49)
[2023-08-17 05:59] LABS: Basophils Percent Auto 0.3 % (0.2-1.2); Eosinophils Absolute Auto 0.2 K/mm3 (0-0.3); Eosinophils Percent Auto 1.9 % (0-4.4); Hematocrit 27.3 % (42.0-52.0); Hemoglobin 8.3 g/dL (14.0-18.0); Immature Granulocyte Absolute 0.07 K/mm3 (0.00-0.031); Immature Granulocyte Percent A 0.6 % (0-0.5); Lymphocytes Absolute Auto 1.57 K/mm3 (0.9-3.2); Lymphocytes Percent Auto 12.7 % (18.3-44.2); Mean Corpuscular HGB Conc 30.4 g/dl (32-36); Mean Corpuscular Volume 85.6 fl (80-100); Mean Platelet Volume 10.4 fl (7.4-10.4); Monocytes Absolute Auto 0.8 K/mm3 (0.1-0.6); Monocytes Percent Auto 6.5 % (2.6-8.5); Neutrophils Absolute Auto 9.7 K/mm3 (1.3-6.7); Platelet Count Result 439 k/mm3 (150-375); Red Blood Count 3.19 M/mm3 (4.6-6.20); Red Cell Distribution Width 16.9 % (11.5-14.5); White Blood Count 12.4 K/mm3 (4.5-10.0)
[2023-08-17 06:03] LABS: Base Excess ABG 3.4 mEq/l (+/-2.0); Carboxyhemoglobin 0.3 % THb (0-2.0); Fractional Inspired Oxygen 30 %; HCO3 ABG 27.4 mEq/l (22.0-26.0); Methemoglobin ABG 0.3 %THb (0-1.5); Oxygen Content ABG 15.7 %vol (16.0-22.0); Oxygen Saturation ABG 97.8 % (95.0-100.0); Oxyhemoglobin 96.3 % THb (90.0-100.0); PCO2 ABG 39.2 mmHg (35.0-45.0); PO2 ABG 97.8 mmHg (80.0-100.0); PO2 FiO2 Ratio Arterial Blood 3.26 %; Reduced Hemoglobin 3.1 %THb (0-5.0); Total Hemoglobin 11.5 g/dL (12.0-18.0); pH ABG 7.462 (7.350-7.450)
[2023-08-17 06:11] LABS: Alanine Aminotransferase 24 U/L (6-50); Albumin Level 3.4 g/dL (3.5-5.1); Alkaline Phosphatase 122 U/L (38-126); Anion Gap 7 mmol/L (8-16); Aspartate Amino Transferase 28 U/L (17-59); Bilirubin,Total 0.7 mg/dL (0.2-1.3); Blood Urea Nitrogen 24 mg/dL (9-20); Calcium 8.9 mg/dL (8.4-10.2); Carbon Dioxide 29 mmol/L (22-30); Chloride 102 mmol/L (98-107); Estimated CRCL calculation 144 ml/min; Estimated Glomerular Filt Rate > 60; Glucose 210 mg/dL (65-110); Phosphorus 5.4 mg/dL (2.5-4.5); Potassium 4.1 mmol/L (3.4-5.0); Sodium 138 mmol/L (137-145); Triglycerides 202 mg/dL (<150)
[2023-08-17] MEDS: PROPOFOL IV EMULSION 100 ML 20.41 MG IV CONT (07:19)
[2023-08-17 07:51] LABS: Glucose Point of Care 201 mg/dl (65-105)
[2023-08-17] MEDS: ENOXAPARIN 40 MG/0.4 ML SYRINGE SUB-Q (08:36)
[2023-08-17] MEDS: QUEtiapine FUMARATE 25 MG TABLET 75 MG PO ×2 (08:36→20:14)
[2023-08-17] MEDS: cefTRIAXone 2 GM/NS 100 ML 2 GM/100 ML BAG IVPB (08:36)
[2023-08-17] MEDS: PANTOPRAZOLE SODIUM IV 40 MG VIAL IV PUSH ×2 (08:36→20:14)
[2023-08-17] MEDS: MINERAL OIL/WHITE PETROLATUM OINTMENT 1 APPLIC EACH EYE (08:36)
[2023-08-17] MEDS: INSULIN ASPART (*BKC) 100 UNITS/ML SUB-Q ×2 (08:43→12:32)
[2023-08-17] MEDS: INSULIN GLARGINE (*BKC) 100 UNITS/ML 46 UNITS SUB-Q (08:43)
[2023-08-17] MEDS: dexmedeTOMIDine 400 MCG/100 ML 400 MCG/100 ML BAG IV CONT (08:44)
--- NOTE | 2023-08-17 09:36 | WPDINTPN ---
Progress Note: A&P Assessment and Plan (1) Acute respiratory failure with hypoxia: Code(s): J96.01 - Acute respiratory failure with hypoxia Status: Acute Assessment and Plan: Acute hypoxic Respiratory failure secondary to combination of COVID pneumonia, bacterial pneumonia from Streptococcus pneumoniae and component of congestive heart failure -COVID PCR was positive. -Blood culture positive for Streptococcus pneumoniae and he had elevated procalcitonin level. His BNP was also elevated Through the hospital course patient's hypoxia has been gradually getting worse as he was on nasal cannula presentation later moved to Airvo and was BiPAP. - 08/09 :deteriorated and was intubated. Post intubation patient remained hypoxic with low saturation requiring high PEEP. He was asynchronous with the ventilator and required neuromuscular jessee. -08/09 morning he developed spontaneous pneumothorax and a right-sided chest tube was placed-see below 08/17: Patient placed on ASV mode of ventilation, tolerating well, -Currently on propofol and Versed infusion, patient is on oxycodone per tube, Seroquel. Off Precedex and fentanyl infusion. have asked the bedside RN to start coming down on the sedation and start Precedex infusion. Once he is more awake will place him on SBT and evaluate for extubation -Continue bronchodilators -Continue dexamethasone for a total of 10 days -Completed course of remdesivir -Patient not treated with immunomodulators (Actemra on baricitinib) due to for strep pneumo pneumonia and bacteremia. His CRP is low at 5.1 08/10 CT chest Diffuse bilateral pulmonary opacities likely representing pulmonary edema overlying somewhat improving infectious changes. Changes of ARDS should also be considered in the differential. Small right pneumothorax. (2) Spontaneous pneumothorax: Code(s): J93.83 - Other pneumothorax Status: Acute Assessment and Plan: Patient developed spontaneous pneumothorax post intubation likely from barotrauma. 08/09 status post chest tube placement on the right by general surgery 08/10 CT scan done in supine position showed pneumothorax anteriorly while chest tube was posterior to the lung. Chest x-ray done this morning does not show any pneumothorax. Continue to monitor. No air leak at this time. Chest tube is in acceptable place on images 08/12 small apical pneumothorax on the chest x-ray. Chest tube is in place. No air leak at this time 08/13 chest x-ray reviewed 08/14: Chest x-ray reviewed, right-sided chest tube in place, suspected tiny apical pneumothorax (3) Sepsis: Code(s): A41.9 - Sepsis, unspecified organism Status: Acute Assessment and Plan: Patient presented with picture of pneumonia with positive COVID PCR and procalcitonin level. His blood culture came back positive for Streptococcus pneumoniae. Patient may have had COVID and then developed secondary bacterial infection Patient was initially on vancomycin Rocephin azithromycin. Vancomycin and azithromycin were discontinued -Repeat blood cultures are negative till now -Continue Rocephin 2 g IV q.day Post intubation patient has been hypotensive and was on Levophed temporarily which has been weaned off after fluid bolus Patient does have history of IV drug abuse but his HIV screen was negative, RPR nonreactive 08/12 fevers overnight. Earlier patient was paralyzed. UA was checked and was unremarkable. CT recently done as above. WBC has normalized. Continue current treatment. If persistent will recheck blood cultures 08/14: Has been afebrile (4) Type 2 diabetes mellitus: Code(s): E11.9 - Type 2 diabetes mellitus without complications Status: Acute Assessment and Plan: Change sliding scale to q.4 hours Continue Lantus (5) Pneumonia due to COVID-19 virus: Code(s): U07.1 - COVID-19; J12.82 - Pneumonia due to coronavirus disease 2019 Status: Acute Asses
[2023-08-17 11:57] LABS: Glucose Point of Care 227 mg/dl (65-105)
[2023-08-17] MEDS: ONDANSETRON INJ 4 MG/2 ML VIAL IV PUSH (12:37)
[2023-08-17 13:12] LABS: Alveolar/Arterial O2 Gradient 46.4 mmHg; Base Excess ABG 2.6 mEq/l (+/-2.0); Fractional Inspired Oxygen 30 %; HCO3 ABG 26.3 mEq/l (22.0-26.0); Oxygen Saturation ABG 98.6 % (95.0-100.0); PCO2 ABG 37.8 mmHg (35.0-45.0); PO2 ABG 123.1 mmHg (80.0-100.0); pH ABG 7.461 (7.350-7.450)
[2023-08-17 13:13] LABS: Device VENTILATOR; Modified Allen's Test Pass; Site Drawn RIGHT RADIAL
[2023-08-17 13:14] LABS: Arterial Blood Gas PEEP 5 cmH2O; Arterial Blood Gas Pressure Support 5 cmH2O; Arterial Blood Gas Vent Mode SPONTANEOUS
[2023-08-17] MEDS: dexmedeTOMIDine 400 MCG/100 ML 400 MCG/100 ML BAG 24.78 MCG IV CONT (14:28)
[2023-08-17] MEDS: dexmedeTOMIDine 400 MCG/100 ML 400 MCG/100 ML BAG 31.54 MCG IV CONT (17:27)
[2023-08-17 17:52] LABS: Glucose Point of Care 181 mg/dl (65-105)
[2023-08-17] MEDS: dexmedeTOMIDine 400 MCG/100 ML 400 MCG/100 ML BAG 33.79 MCG IV CONT ×2 (20:14→23:21)
[2023-08-17] MEDS: ALTEPLASE 2 MG VIAL (CATHFLO) IV PUSH (23:22)
[2023-08-18] VITALS (93 sets, daily range): BP systolic 107–183; BP diastolic 55–119; PULSE 64–135; RESP 0–35; TEMP 37.3–38.2; O2SAT 87–100
[2023-08-18] MEDS: oxyCODONE HCL (*CRX) 5 MG TAB IR PO ×5 (01:03→23:37)
[2023-08-18 01:17] LABS: Glucose Point of Care 160 mg/dl (65-105)
[2023-08-18] MEDS: LORazepam INJ (*CRX) 2 MG/ML VIAL IV PUSH ×3 (01:40→15:05)
[2023-08-18] MEDS: dexmedeTOMIDine 400 MCG/100 ML 400 MCG/100 ML BAG 33.79 MCG IV CONT ×3 (02:16→08:32)
[2023-08-18] MEDS: ALBUTEROL SULFATE NEB 2.5 MG/3 ML INH INHALATION ×4 (02:34→19:57)
[2023-08-18] MEDS: IPRATROPIUM BR 0.02% INH SOLN 0.5 MG/2.5 ML VIAL INHALATION ×4 (02:34→19:58)
[2023-08-18] MEDS: CENTRAL LINE FLUSH 10 ML IV PUSH ×3 (06:03→22:06)
[2023-08-18 06:08] LABS: Alveolar/Arterial O2 Gradient 100.4 mmHg; Base Excess ABG 1.4 mEq/l (+/-2.0); Carboxyhemoglobin 0.4 % THb (0-2.0); Fractional Inspired Oxygen 28 %; HCO3 ABG 24.6 mEq/l (22.0-26.0); Methemoglobin ABG 0.3 %THb (0-1.5); Oxygen Content ABG 12.3 %vol (16.0-22.0); Oxygen Saturation ABG 92.9 % (95.0-100.0); PCO2 ABG 33.4 mmHg (35.0-45.0); PO2 ABG 59.8 mmHg (80.0-100.0); PO2 FiO2 Ratio Arterial Blood 2.14 %; Reduced Hemoglobin 10.3 %THb (0-5.0); Total Hemoglobin 9.8 g/dL (12.0-18.0); pH ABG 7.485 (7.350-7.450)
[2023-08-18 06:09] LABS: Device NASAL CANNULA; Modified Allen's Test Pass; Site Drawn RIGHT RADIAL
[2023-08-18 06:17] LABS: Basophils Absolute Auto 0.1 K/mm3 (0.0-0.1); Basophils Percent Auto 0.8 % (0.2-1.2); Eosinophils Absolute Auto 0.3 K/mm3 (0-0.3); Eosinophils Percent Auto 3.4 % (0-4.4); Hematocrit 23.2 % (42.0-52.0); Immature Granulocyte Absolute 0.03 K/mm3 (0.00-0.031); Immature Granulocyte Percent A 0.4 % (0-0.5); Lymphocytes Absolute Auto 2.36 K/mm3 (0.9-3.2); Lymphocytes Percent Auto 30.5 % (18.3-44.2); Mean Corpuscular HGB Conc 30.2 g/dl (32-36); Mean Corpuscular Hemoglobin 25.2 pg (26-34); Mean Corpuscular Volume 83.5 fl (80-100); Mean Platelet Volume 9.8 fl (7.4-10.4); Monocytes Absolute Auto 0.5 K/mm3 (0.1-0.6); Monocytes Percent Auto 6.5 % (2.6-8.5); Neutrophils Absolute Auto 4.5 K/mm3 (1.3-6.7); Neutrophils Percent Auto 58.4 % (45.5-73.1); Platelet Count Result 337 k/mm3 (150-375); Red Blood Count 2.78 M/mm3 (4.6-6.20); Red Cell Distribution Width 16.1 % (11.5-14.5); White Blood Count 7.8 K/mm3 (4.5-10.0)
[2023-08-18 06:27] LABS: Alanine Aminotransferase 18 U/L (6-50); Alkaline Phosphatase 94 U/L (38-126); Anion Gap 6 mmol/L (8-16); Aspartate Amino Transferase 22 U/L (17-59); Bilirubin,Total 0.6 mg/dL (0.2-1.3); Blood Urea Nitrogen 32 mg/dL (9-20); Calcium 8.2 mg/dL (8.4-10.2); Carbon Dioxide 27 mmol/L (22-30); Chloride 99 mmol/L (98-107); Estimated CRCL calculation 125 ml/min; Estimated Glomerular Filt Rate > 60; Glucose 314 mg/dL (65-110); Magnesium 1.9 mg/dL (1.6-2.3); Phosphorus 4.2 mg/dL (2.5-4.5); Potassium 4.1 mmol/L (3.4-5.0); Sodium 132 mmol/L (137-145); Triglycerides 144 mg/dL (<150)
[2023-08-18] MEDS: INSULIN ASPART (*BKC) 100 UNITS/ML SUB-Q ×2 (06:52→12:49)
[2023-08-18] MEDS: ALPRAZolam (*CRX) 0.5 MG TABLET PO ×4 (09:13→23:37)
[2023-08-18] MEDS: PANTOPRAZOLE SODIUM IV 40 MG VIAL IV PUSH ×2 (09:13→22:06)
[2023-08-18] MEDS: cefTRIAXone 2 GM/NS 100 ML 2 GM/100 ML BAG IVPB (09:13)
[2023-08-18] MEDS: QUEtiapine FUMARATE 100 MG TABLET PO ×2 (09:13→22:06)
[2023-08-18] MEDS: INSULIN GLARGINE (*BKC) 100 UNITS/ML 46 UNITS SUB-Q (09:16)
--- NOTE | 2023-08-18 11:19 | PCFNICU ---
ICU Rounding Note: Pt current nutrition is Regular. Last recorded weight is 91.2 kg, down from 99.7 kg on admit. Bowel Motility:+BM reported 08/18 Labs Reviewed:Glu 314, BUN 32, Alb 3.0,Na 132, Hct 23.2,Hgb 7.0 Meds Noted:Precedex, NovoLog, Lantus Skin: scabs bilateral legs Additional Notes: Patient extubated. Diet order has advanced to a regular diet. Oral Intake 100% of meals. Would recommend changing to DBCC diet due to DM hx. Following daily in ICU rounds. Monitoring tube feeding tolerance, labs, medications, weights, stool patterns every 5 days.
[2023-08-18 12:18] LABS: Glucose Point of Care 204 mg/dl (65-105)
--- NOTE | 2023-08-18 12:22 | WPDINTPN ---
Progress Note: A&P Assessment and Plan (1) Acute respiratory failure with hypoxia: Code(s): J96.01 - Acute respiratory failure with hypoxia Status: Acute Assessment and Plan: Acute hypoxic Respiratory failure secondary to combination of COVID pneumonia, bacterial pneumonia from Streptococcus pneumoniae and component of congestive heart failure -COVID PCR was positive. -Blood culture positive for Streptococcus pneumoniae and he had elevated procalcitonin level. His BNP was also elevated Through the hospital course patient's hypoxia has been gradually getting worse as he was on nasal cannula presentation later moved to Airvo and was BiPAP. - 08/09 :deteriorated and was intubated. Post intubation patient remained hypoxic with low saturation requiring high PEEP. He was asynchronous with the ventilator and required neuromuscular jessee. -08/09 morning he developed spontaneous pneumothorax and a right-sided chest tube was placed-see below 08/17: Successfully extubated -currently on Precedex infusion which is being weaned to off, patient on Seroquel and p.r.n. Xanax -Continue bronchodilators -completed a 10 day course of dexamethasone -Completed course of remdesivir -Patient not treated with immunomodulators (Actemra on baricitinib) due to for strep pneumo pneumonia and bacteremia. His CRP is low at 5.1 08/10 CT chest Diffuse bilateral pulmonary opacities likely representing pulmonary edema overlying somewhat improving infectious changes. Changes of ARDS should also be considered in the differential. Small right pneumothorax. (2) Spontaneous pneumothorax: Code(s): J93.83 - Other pneumothorax Status: Acute Assessment and Plan: Patient developed spontaneous pneumothorax post intubation likely from barotrauma. 08/09 status post chest tube placement on the right by general surgery 08/10 CT scan done in supine position showed pneumothorax anteriorly while chest tube was posterior to the lung. Chest x-ray done this morning does not show any pneumothorax. Continue to monitor. No air leak at this time. Chest tube is in acceptable place on images 08/12 small apical pneumothorax on the chest x-ray. Chest tube is in place. No air leak at this time 08/13 chest x-ray reviewed 08/14: Chest x-ray reviewed, right-sided chest tube in place, suspected tiny apical pneumothorax Discussed with surgery MARKETING PROJECT SPECIALIST, she will discuss with the surgeon for removal of the chest tube (3) Sepsis: Code(s): A41.9 - Sepsis, unspecified organism Status: Acute Assessment and Plan: Patient presented with picture of pneumonia with positive COVID PCR and procalcitonin level. His blood culture came back positive for Streptococcus pneumoniae. Patient may have had COVID and then developed secondary bacterial infection Patient was initially on vancomycin Rocephin azithromycin. Vancomycin and azithromycin were discontinued -Repeat blood cultures are negative till now -Continue Rocephin 2 g IV q.day for total 14 days (end date is 08/22/2023) -off on fluids, adequate urine output -Patient does have history of IV drug abuse but his HIV screen was negative, RPR nonreactive (4) Type 2 diabetes mellitus: Code(s): E11.9 - Type 2 diabetes mellitus without complications Status: Acute Assessment and Plan: Change sliding scale to q.4 hours Continue Lantus -regular diet (5) Pneumonia due to COVID-19 virus: Code(s): U07.1 - COVID-19; J12.82 - Pneumonia due to coronavirus disease 2019 Status: Acute Assessment and Plan: See above (6) Pneumonia: Code(s): J18.9 - Pneumonia, unspecified organism Status: Acute Assessment and Plan: See above (7) Bacteremia: Code(s): R78.81 - Bacteremia Status: Acute Assessment and Plan: See above (8) Back pain: Code(s): M54.9 - Dorsalgia, unspecified Status: Acute Assessment and Plan: Patient had
[2023-08-18] MEDS: SODIUM CHLORIDE 0.9% IV 250 ML 30 ML IV CONT (12:30)
--- NOTE | 2023-08-18 14:45 | PM.PNGS ---
Progress Note: A&P Assessment and Plan (1) Spontaneous pneumothorax: Code(s): J93.83 - Other pneumothorax Status: Acute Assessment and Plan: Spontaneous right pneumothorax likely related to barotrauma s/p chest tube placement on 08/09/23. Patient was extubated yesterday and remains stable. Serial chest x-rays show the chest tube to be in good position with no pneumothorax. There is no air leak noted on exam. We will put the chest tube to water seal now and repeat a chest x-ray tomorrow morning. If his chest x-ray remains stable in the morning with no pneumothorax, then we will plan to remove the chest tube tomorrow. Discussed this with the patient who voiced understanding. (2) Pneumonia due to COVID-19 virus: Code(s): U07.1 - COVID-19; J12.82 - Pneumonia due to coronavirus disease 2019 Status: Acute Plan I have discussed the patient's case and plan of care with Dr. Cornejo. Subjective Subjective Date/Time Seen: 08/18/23 14:05 Interval history: This is a 42 year old man who has been admitted COVID pneumonia and acute respiratory failure. He was intubated and found to have a spontaneous right pneumothorax secondary to barotrauma that required chest tube placement on 08/09/23. While on mechanical ventilation, the patient was managed by the Health Informatics Specialist. He has since been extubated and the Health Informatics Specialist requested that we see the patient again for chest tube removal. He is now seen on the medical floor. Per nursing, his chest tube remains on wall suction -20 cm. Nursing has had to change his chest tube dressing due to drainage coming around the chest tube making the dressing saturated. His main complaint is right-sided chest pain at the site of the chest tube. Exam Narrative: Right lateral chest tube with dressing dry and intact. Chest tube has been changed to water seal. There is no air leak with deep breathing or cough. Objective Data Vital Signs Vital Signs: Vital Signs - 24 hr 08/17/23 16:00 08/17/23 15:00 08/17/23 16:00 Temperature 99.9 F H Pulse Rate 69 70 69 Respiratory Rate 16 16 15 Blood Pressure 114/64 Pulse Oximetry 99 Oxygen Delivery Oxygen Flow Rate Fraction of Inspired Oxygen 08/17/23 16:00 08/17/23 16:00 08/17/23 17:27 Temperature Pulse Rate 69 69 Respiratory Rate 16 Blood Pressure Pulse Oximetry 99 Oxygen Delivery Nasal Cannula Oxygen Flow Rate 2 Fraction of Inspired Oxygen 08/17/23 17:27 08/17/23 17:59 08/17/23 18:30 Temperature 100.1 F H Pulse Rate 69 69 68 Respiratory Rate 16 19 14 Blood Pressure 117/64 Pulse Oximetry 96 Oxygen Delivery Oxygen Flow Rate Fraction of Inspired Oxygen 08/17/23 18:00 08/17/23 20:14 08/17/23 20:14 Temperature Pulse Rate 68 66 66 Respiratory Rate 16 16 Blood Pressure Pulse Oximetry Oxygen Delivery Oxygen Flow Rate Fraction of Inspired Oxygen 08/17/23 20:00 08/17/23 20:00 08/17/23 20:00 Temperature 100.1 F H Pulse Rate 67 67 Respiratory Rate 16 Blood Pressure 108/59 L Pulse Oximetry 96 96 Oxygen Delivery Nasal Cannula Oxygen Flow Rate 2 Fraction of Inspired Oxygen 08/17/23 21:01 08/17/23 21:11 08/17/23 23:21 Temperature Pulse Rate 66 70 70 Respiratory Rate 16 16 15 Blood Pressure Pulse Oximetry Oxygen Delivery Oxygen Flow Rate Fraction of Inspired Oxygen 08/18/23 02:16 08/18/23 00:00 08/18/23 00:00 Temperature Pulse Rate 65 69 Respiratory Rate Blood Pressure Pulse Oximetry 95 Oxygen Delivery Nasal Cannula Oxygen Flow Rate 2 Fraction of Inspired Oxygen 08/18/23 00:00 08/17/23 22:00 08/17/23 22:00 Temperature 100.1 F H 99.9 F H Pulse Rate 69 75 75 Respiratory Rate 16 17 Blood Pressure 114/62 113/59 L Pulse Oximetry 95 92 Oxygen Delivery Oxygen Flow Rate Fraction of Inspired Oxygen 08/18/23 02:34 08/18/23 02:46 08/18/23 05:19 Temperature Pulse Rate 6
[2023-08-18] MEDS: MORPHINE SULFATE INJ (*CRX) 10 MG/ML AMP (15:06)
[2023-08-18 17:15] LABS: Glucose Point of Care 184 mg/dl (65-105)
[2023-08-18] MEDS: NALOXONE HCL 0.4 MG/ML VIAL (18:30)
--- NOTE | 2023-08-18 20:06 | PC.NURSE ---
brought in a bag of chocolates early this day for pt. Bag inspected and appeared to be sealed. Later pt assisted to bedside commode and asked for privacy. This RN noted pt to become tachycardic in 120s and checked on patient who stated he was fine. This RN became concerned that pt may be attempting to use illicit drugs. Due to concerns for safety this RN called a tech to assist with confronting pt. Tech noted pt to have an unfamiliar syringe in hand. Tech confiscated syringe from pt and called for help. This RN noted pt to quickly attempt to snort unknown capsule, capsule removed from pt. Pt immediately attempted to snort a second capsule which was also immediately confiscated. Rapid response called, pt given Narcan, see rapid response notes. Pt assisted back to bed, A&Ox4 and vital signs stable.
--- NOTE | 2023-08-18 20:30 | PM.EVENT ---
Event Note Event Note Event Note: Rapid response called at 18:09. I arrived shortly thereafter. According to the nurse she had help the patient onto the commode as he needed to have a bowel movement. She kept the door a jar to keep an eye on him as he had not been up by himself for over a week until today. She became worried after several minutes and called another staff member to help her check on him. He was found with a needle (different than those docked at this facility) held up to his arm. It was unclear whether not he had an injected himself with an unknown substance. The needle was taken from him and placed in the sharps container. Nurse that noted that he had a capsule containing a white substance help to his nostril and she grabbed out of his hand. He was given 0.4 mg of Narcan due to concerns for possible overdose. Initially he reported that it was just Benadryl but he then admitted that the substance he was trying to use was fentanyl. He did not say what he was attempting to inject or if he injected anything at all. He was not doing this in attempts to harm himself but instead in order to get high. He has a longstanding history of heroin abuse. Not long prior to this incident his and monument letterer were allowed to come visit him however they had to stay behind the closed glass door as he is COVID positive. brought him a goodie bag to include chocolates but the nurse checks those over thoroughly and reports that the bag was sealed. It was thought that perhaps she is not him in the drugs though that cannot be proven. Patient complains of ongoing withdrawal symptoms including anxiety, shakes, and nausea. He received a dose of Ativan and was helped back to bed. It was made clear that he could no longer have visitors. He will continue to be monitored closely in the ICU although he has been downgraded. Vital signs have remained stable although he was a bit tachycardic following administration of Narcan. Right chest tube is in place. Lung sounds are coarse, more so on the left. Tacky mucous membranes. He is alert and oriented. Mildly diaphoretic. Peripheral pulses intact. Critical Care Time Critical Care Time: Yes Total Critical Care Time: 30 Attestation: Due to a high probability of clinically significant, life threatening deterioration, the patient required my highest level of preparedness to intervene emergently and I personally spent this critical care time directly and personally managing the patient. This critical care time included obtaining a history; examining the patient; pulse oximetry; ordering and review of studies; arranging urgent treatment with development of a management plan; evaluation of patient's response to treatment; frequent reassessment; and discussions with other providers. It was exclusive of separately billable procedures and treating other patients and teaching time. Please see Assessment and Plan section and the rest of the note for further information on patient assessment and treatment.
[2023-08-18 22:10] LABS: Glucose Point of Care 185 mg/dl (65-105)
[2023-08-19] VITALS (7 sets, daily range): BP systolic 129–167; BP diastolic 78–87; PULSE 96–124; RESP 15–22; TEMP 37.4–37.6; O2SAT 91–96
--- NOTE | 2023-08-19 02:18 | PC.NURSE ---
Found pills with white powdery substance locked in patients closet in ICU 7, removed pills placed them in biohazard bag and gave them to change release manager. Locked belongings in patients current room ICU 2. 0200- Patient becoming increasingly more agitated, ripped telemetry monitoring off, states he is going home. Attempted to educated the patient on the risk of leaving AMA. Called Dr Spring and Dr Quiroga to remove chest tube. Dr Quiroga asked if ED doc can come and removed chest tube being its 0200.
--- NOTE | 2023-08-19 02:47 | PC.NURSE ---
Patient signed AMA paperwork, ED Dr. Jerome at bedside to assist patient with CT removal. Saw patients weakened condition and immobility and decided against the chest tube removal at this time. Called Dr. Quiroga back and updated on condition. Dr Spring updated.
--- NOTE | 2023-08-19 02:57 | PC.NURSE ---
Patient laying in stool, stated he will clean himself up, karen mackenzie'georgina.
--- NOTE | 2023-08-19 03:41 | PC.NURSE ---
patient states he will stay if he can have 5mg of morphine and 5mg of ativan, called Dr Spring , he stated he would not be writing the order, patient said we are holding him here hostage against his will and unsuccessful attempts at removing the chest tube were made.
--- NOTE | 2023-08-19 04:10 | PC.NURSE ---
Patient agrees to stay, but he is unsure about wearing telemetry and having labs drawn at this time. Patient still laying in stool, stated to pull his curtain so he can sleep. Stated he will clean himself, wipes and pads at bedside.
--- NOTE | 2023-08-19 06:06 | PC.NURSE ---
0600-Patient still refusing AM labs, telemetry , and help with cleaning stool from being incontinent
[2023-08-19] MEDS: QUEtiapine FUMARATE 100 MG TABLET PO (08:24)
[2023-08-19] MEDS: oxyCODONE HCL (*CRX) 5 MG TAB IR PO (08:24)
[2023-08-19] MEDS: PANTOPRAZOLE SODIUM IV 40 MG VIAL IV PUSH (08:24)
[2023-08-19] MEDS: ALPRAZolam (*CRX) 0.5 MG TABLET PO (08:24)
[2023-08-19] MEDS: INSULIN GLARGINE (*BKC) 100 UNITS/ML 46 UNITS SUB-Q (08:25)
[2023-08-19 08:39] LABS: Glucose Point of Care 174 mg/dl (65-105)
[2023-08-19 08:49] LABS: Basophils Absolute Auto 0.1 K/mm3 (0.0-0.1); Basophils Percent Auto 0.9 % (0.2-1.2); Eosinophils Absolute Auto 0.3 K/mm3 (0-0.3); Eosinophils Percent Auto 3.2 % (0-4.4); Hemoglobin 9.1 g/dL (14.0-18.0); Immature Granulocyte Absolute 0.07 K/mm3 (0.00-0.031); Immature Granulocyte Percent A 0.8 % (0-0.5); Lymphocytes Percent Auto 23.5 % (18.3-44.2); Mean Corpuscular HGB Conc 30.3 g/dl (32-36); Mean Corpuscular Hemoglobin 25.9 pg (26-34); Mean Corpuscular Volume 85.2 fl (80-100); Mean Platelet Volume 9.7 fl (7.4-10.4); Monocytes Absolute Auto 0.6 K/mm3 (0.1-0.6); Monocytes Percent Auto 6.4 % (2.6-8.5); Neutrophils Absolute Auto 5.8 K/mm3 (1.3-6.7); Neutrophils Percent Auto 65.2 % (45.5-73.1); Platelet Count Result 432 k/mm3 (150-375); Red Blood Count 3.52 M/mm3 (4.6-6.20); Red Cell Distribution Width 16.8 % (11.5-14.5); White Blood Count 8.9 K/mm3 (4.5-10.0)
[2023-08-19 08:56] LABS: Alanine Aminotransferase 26 U/L (6-50); Albumin Level 3.3 g/dL (3.5-5.1); Alkaline Phosphatase 115 U/L (38-126); Anion Gap 5 mmol/L (8-16); Aspartate Amino Transferase 33 U/L (17-59); Bilirubin,Total 0.6 mg/dL (0.2-1.3); Blood Urea Nitrogen 29 mg/dL (9-20); Calcium 8.7 mg/dL (8.4-10.2); Carbon Dioxide 27 mmol/L (22-30); Chloride 103 mmol/L (98-107); Estimated CRCL calculation 125 ml/min; Estimated Glomerular Filt Rate > 60; Glucose 182 mg/dL (65-110); Magnesium 1.9 mg/dL (1.6-2.3); Phosphorus 3.9 mg/dL (2.5-4.5); Potassium 3.5 mmol/L (3.4-5.0); Sodium 135 mmol/L (137-145)
--- NOTE | 2023-08-19 09:08 | PM.PNGS ---
Progress Note: A&P Assessment and Plan (1) Spontaneous pneumothorax: Code(s): J93.83 - Other pneumothorax Status: Acute Assessment and Plan: Spontaneous right pneumothorax likely related to barotrauma s/p chest tube placement on 08/09/23. He weas extubated two days ago. Chest tube placed on water seal yesterday. Repeat chest x-ray this morning showed chest tube in good position and no pneumothorax. Chest tube was removed at the bedside this morning and an occlusive dressing was applied. Recommended a repeat chest x-ray this afternoon a few hours after removing the chest tube. The patient is adamant about leaving AMA today. I educated patient on the risks of leaving without proper follow-up and signs of recurrent pneumothorax. Discussed dressing instructions. Would recommend patient stay and have repeat chest x-ray but currently refusing. (2) Pneumonia due to COVID-19 virus: Code(s): U07.1 - COVID-19; J12.82 - Pneumonia due to coronavirus disease 2019 Status: Acute Plan I have discussed the patient's case and plan of care with Dr. Cornejo. Subjective Subjective Date/Time Seen: 08/19/23 09:08 Interval history: Patient seen this morning. He denies any acute events overnight. No shortness of breath or chest pain other than the pain at the chest tube site. He is currently on room air with an O2 saturation of 96%. Chest x-ray this morning showed no pneumothorax. Exam Narrative: Right lateral chest tube with dressing dry and intact. No air leak. Chest tube and suture removed at the bedside today with the nurse present. Sterile occlusive dressing was applied. No immediate complications. Chest: Chest palpation & inspection: no crepitus Resp: Effort & Inspection: normal respiratory effort Auscultation: clear to auscultation bilaterally Objective Data Vital Signs Vital Signs: Vital Signs - 24 hr 08/18/23 09:55 08/18/23 10:47 08/18/23 10:47 Temperature 99.4 F Pulse Rate 72 75 Respiratory Rate 18 13 Blood Pressure 129/69 Pulse Oximetry 95 98 Oxygen Delivery Nasal Cannula Oxygen Flow Rate 2 Fraction of Inspired Oxygen 28 08/18/23 10:00 08/18/23 12:25 08/18/23 11:30 Temperature 99.8 F H Pulse Rate 72 81 87 Respiratory Rate 20 16 Blood Pressure 115/64 Pulse Oximetry 96 Oxygen Delivery Oxygen Flow Rate Fraction of Inspired Oxygen 08/18/23 12:30 08/18/23 12:00 08/18/23 13:41 Temperature 99.9 F H Pulse Rate 89 85 96 Respiratory Rate 15 20 23 H Blood Pressure 130/74 107/55 L Pulse Oximetry 97 98 Oxygen Delivery Oxygen Flow Rate Fraction of Inspired Oxygen 08/18/23 13:52 08/18/23 14:07 08/18/23 15:32 Temperature Pulse Rate 96 102 H Respiratory Rate 20 18 Blood Pressure Pulse Oximetry Oxygen Delivery Room Air Oxygen Flow Rate Fraction of Inspired Oxygen 08/18/23 16:00 08/18/23 12:40 08/18/23 13:40 Temperature 100.4 F H 99.9 F H 99.9 F H Pulse Rate 110 H 85 94 Respiratory Rate 27 H 22 H 22 H Blood Pressure 142/100 H 130/74 107/55 L Pulse Oximetry 93 100 96 Oxygen Delivery Oxygen Flow Rate Fraction of Inspired Oxygen 08/18/23 14:40 08/18/23 15:30 08/18/23 12:00 Temperature 99.8 F H 99.9 F H Pulse Rate 107 H 109 H Respiratory Rate 22 H 23 H Blood Pressure 131/59 L 148/76 H Pulse Oximetry 96 94 97 Oxygen Delivery Nasal Cannula Oxygen Flow Rate 2 Fraction of Inspired Oxygen 08/18/23 17:58 08/18/23 20:03 08/18/23 20:03 Temperature Pulse Rate 133 H 96 Respiratory Rate 25 H 20 Blood Pressure 162/65 H Pulse Oximetry 98 98 Oxygen Delivery Nasal Cannula Oxygen Flow Rate 2 Fraction of Inspired Oxygen 28 08/18/23 12:00 08/18/23 14:00 08/18/23 16:00 Temperature Pulse Rate 74 96 108 H Respiratory Rate Blood Pressure Pulse Oximetry Oxygen Delivery Oxygen Flow Rate Fraction of Inspired Oxygen 08/18/23 18:00 08/18/23 16:00 08/18/23 20:00
[2023-08-20 17:13] LABS: Device VENTILATOR
[2023-08-20 17:14] LABS: Arterial Blood Gas PEEP 8 cmH2O; Arterial Blood Gas Tidal Volume 450 ml; Arterial Blood Gas Vent Mode CMV; Arterial Blood Gas Ventilator rate 20 /MIN
--- NOTE | 2023-09-10 12:07 | WPDCDIQUERY2 ---
CDI Query Clarified Diagnosis Clarified Diagnosis: final dx respiratory failure pneumothorax covid
--- NOTE | 2023-09-10 12:09 | PM.IMPN ---
Subjective Date/time seen: 09/10/23 12:09 Interval history: na Objective Data Meds/Results Radiology Results: ITS Impressions Chest CTA 08/05/23 22:24 IMPRESSION: No CT evidence of acute pulmonary embolus. Severe multifocal pneumonia, with findings that can be seen with atypical/viral agents. Mediastinal lymphadenopathy. Trace left pleural effusion. Hepatomegaly with steatosis. Splenomegaly with a small splenic infarct. Bilateral symmetric gynecomastia. Abdomen X-Ray 08/09/23 07:31 IMPRESSION: 1. OG tube with its tip in the stomach. Proximal side port appears to be just beyond the gastroesophageal junction. 2. Small right pneumothorax, result previously communicated. Chest/Abdomen/Pelvis CT 08/10/23 14:16 IMPRESSION: Diffuse bilateral pulmonary opacities likely representing pulmonary edema overlying somewhat improving infectious changes. Changes of ARDS should also be considered in the differential. Small right pneumothorax. Hepatosplenomegaly. Splenic infarct. Increased bilateral perinephric stranding, consider polyp nephritis in the differential. Correlate with urinalysis. Urinary bladder distention, recommend confirming normal Harry catheter function. Chest X-Ray 08/19/23 06:04 IMPRESSION: 1. Stable airspace opacities in the mid and lower lung zones, consistent with pneumonia. 2. Right-sided chest tube in expected position. No pneumothorax.
--- NOTE | 2023-09-17 12:33 | WPDINTPN ---
Progress Note: A&P Assessment and Plan (1) Acute respiratory failure with hypoxia: Code(s): J96.01 - Acute respiratory failure with hypoxia Status: Acute Assessment and Plan: Acute hypoxic Respiratory failure secondary to combination of COVID pneumonia, bacterial pneumonia from Streptococcus pneumoniae and component of congestive heart failure -COVID PCR was positive.? -Blood culture positive for Streptococcus pneumoniae and he had elevated procalcitonin level.? His BNP was also elevated Through the hospital course patient's hypoxia has been gradually getting worse as he was on nasal cannula presentation later moved to Airvo and was BiPAP.? -?08/09 :deteriorated and was intubated.? Post intubation patient remained hypoxic with low saturation requiring high PEEP.? He was asynchronous with the ventilator and required neuromuscular jessee. -08/09 morning he developed spontaneous pneumothorax?and a right-sided chest tube was placed-see below -08/10 Vent settings reviewed.? Continue PEEP of 12 and FiO2 40%.? Patient had to be prone -08/11 FiO2 30% peep of 8.? Placed in supine position, discontinued Nimbex infusion -08/12 OFF Nimbex.? Tolerated supine ventilation through the night.? FiO2 30% peep of 8.? Chest x-ray still shows diffuse bilateral infiltrates and a small apical pneumothorax.? He has not been tolerating lowering of sedation at this time 08/13 patient quickly became tachypneic and asynchronous with the ventilator on lowering sedation.? Not ready for weaning at this time.? ABG chest x-ray and ventilator settings reviewed.? Decrease tidal volume to 420 and rate to 22. 08/14:? ABGs reviewed, chest x-ray continues to show persistent patchy left basilar airspace disease Increase tidal volume to 450 mL 08/15:? Stable support tubes. No pneumothorax.Stable left basilar consolidation, suspicious for pneumonia. -Continue bronchodilators -Continue dexamethasone for a total of 10 days -Completed course of remdesivir -Patient not treated with immunomodulators (Actemra on baricitinib) due to for strep pneumo pneumonia and bacteremia.? His CRP is low at 5.1 Currently on propofol and Versed infusion, patient is on oxycodone per tube, Seroquel.? Off Precedex and fentanyl infusion 08/10 CT chest Diffuse bilateral pulmonary opacities likely representing pulmonary edema overlying somewhat improving infectious changes. Changes of ARDS should also be considered in the differential. Small right pneumothorax. (2) Spontaneous pneumothorax: Code(s): J93.83 - Other pneumothorax Status: Acute Assessment and Plan: Patient developed spontaneous pneumothorax post intubation likely from barotrauma. 08/09 status post chest tube placement on the right by general surgery 08/10 CT scan done in supine position showed pneumothorax anteriorly while chest tube was posterior to the lung. Chest x-ray done this morning does not show any pneumothorax. Continue to monitor. No air leak at this time. Chest tube is in acceptable place on images 08/12 small apical pneumothorax on the chest x-ray. Chest tube is in place. No air leak at this time 08/13 chest x-ray reviewed 08/14: Chest x-ray reviewed, right-sided chest tube in place, suspected tiny apical pneumothorax (3) Sepsis: Code(s): A41.9 - Sepsis, unspecified organism Status: Acute Assessment and Plan: Patient presented with picture of pneumonia with positive COVID PCR and procalcitonin level. His blood culture came back positive for Streptococcus pneumoniae. Patient may have had COVID and then developed secondary bacterial infection Patient was initially on vancomycin Rocephin azithromycin. Vancomycin and azithromycin were discontinued -Repeat blood cultures are negative till now -Continue Rocephin 2 g IV q.day for total 14 days (end date is 08/22/2023) - adequate urine output -Patient does have history of IV drug abuse but his HIV screen was negative, RPR nonreactive (4)
== END 2023-08-19 09:20 | disposition left against medical advice (07) | DRG 130 ==
LOC: ANHED 16:28 → ANHIMU 20:36 → ANH3MEDSUR 08-07 15:37 → ANHIMU 08-07 20:12 → ANHICU 08-08 02:23
PROVIDERS: Hospitalist; Internal Medicine; Nurse Practitioner; Student in an Organized Health Care Education/Training Program; Admitting Provider Student in an Organized Health Care Education/Training Program; Emergency Provider General Practice; PCP Emergency Medicine; Visit Provider Physician Assistant
DX: U07.1 COVID-19 (principal); J12.82 Pneumonia due to coronavirus disease 2019; R65.21 Severe sepsis with septic shock; A40.3 Sepsis due to Streptococcus pneumoniae; I50.33 Acute on chronic diastolic (congestive) heart failure; E87.20 Acidosis, unspecified; J13 Pneumonia due to Streptococcus pneumoniae; I11.0 Hypertensive heart disease with heart failure; J95.811 Postprocedural pneumothorax; J95.859 Other complication of respirator [ventilator]; J96.01 Acute respiratory failure with hypoxia; E86.0 Dehydration; E11.9 Type 2 diabetes mellitus without complications; D64.9 Anemia, unspecified; N28.9 Disorder of kidney and ureter, unspecified; D73.5 Infarction of spleen; E78.2 Mixed hyperlipidemia; R11.0 Nausea; R33.8 Other retention of urine; M54.9 Dorsalgia, unspecified; G89.29 Other chronic pain; Y84.8 Other medical procedures as the cause of abnormal reaction of the patient, or of later complication, without mention of misadventure at the time of the procedure; T83.091A Other mechanical complication of indwelling urethral catheter, initial encounter; F17.290 Nicotine dependence, other tobacco product, uncomplicated; F19.91 Other psychoactive substance use, unspecified, in remission; F41.9 Anxiety disorder, unspecified
CPT/HCPCS: 36415; 36430; 36569; 36600; 71045; 71250; 71275; 74176; 80048; 80053; 81001; 82010; 82375; 82550; 82607; 82728; 82746; 82805; 82948; 83036; 83050; 83540; 83550; 83605; 83615; 83735; 83880; 84100; 84145; 84155; 84165; 84443; 84460; 84466; 84478; 84550; 85025; 85610; 85730; 86140; 86592; 86703; 86738; 86850; 86900; 86901; 86920; 87040; 87070; 87077; 87081; 87086; 87184; 87186; 87205; 87449; 87636; 87899; 93005; 94002; 94003; 94640; 94660; 96374; 97161; 99291; A9270; C1729; C1751; C8929; C9113; G0432; J0248; J0330; J0360; J0456; J0696; J1100; J1650; J1815; J1940; J2060; J2250; J2270; J2310; J2405; J2704; J2997; J3010; J3370; J3475; J7030; J7040; J7050; J7120; J8540; P9016; Q9957; Q9967

== ENCOUNTER 2023-11-03 20:39 | Emergency (ER) | payer OTHER, SELFPAY ==
[2023-11-03] VITALS (16 sets, daily range): BP systolic 164–194; BP diastolic 86–108; PULSE 75–90; RESP 15–31; TEMP 36.4; O2SAT 98–100
--- NOTE | 2023-11-03 22:20 | ED.LOWEXIN ---
HPI - Extremity Injury (Lower) General Chief Complaint: Extremity Injury, Lower Stated Complaint: leg pain Time Seen by Provider: 11/03/23 21:24 Source: patient and old records reviewed Mode of arrival: EMS Limitations: no limitations History of Present Illness HPI Narrative: Patient is a 43-year-old male who presents to the ED via EMS with report of BLE pain. Patient reports having pain in his legs bilaterally, from his knees down to his feet, intermittently for the last 1 year. He has several wounds to his legs, which he reports are chronic related to previous IV drug abuse. He denies IV drug use in the last 1 year, though per his previous records, patient was found to be injecting IV fentanyl while admitted here in July 2023. He denies any new recent wounds, drainage from wounds, recent fall or injury, fevers. Patient has not taken anything for his pain today. Related Data Home Medications Medication Instructions Recorded Confirmed No Home Medications 08/05/23 08/05/23 Allergies Allergy/AdvReac Type Severity Reaction Status Date / Time No Known Allergies Allergy Verified 08/05/23 15:28 Review of Systems Review of Systems: CONSTITUTIONAL: Denies fever, chills, or sweats. MUSCULOSKELETAL: See HPI All systems reviewed & are unremarkable except as noted in HPI and below PMFSH Past Medical History Medical History Type 2 diabetes mellitus Family History Family History Mother Father Social History Social History (Updated 11/03/23 @ 23:41 by Cassi Ortiz PA-C) Social History: Surrogate medical decision maker: Fatou Luna (spouse) or Ne Rodriguez (mother). Code status: Full code. Smoking status: Current every day smoker Tobacco type: e-cigarettes/vaping Alcohol intake: former Drinks per week: 3 Substance use: former Substance use type: opiates and unknown Lack of Transportation: No Lack of Food: Never True Current Housing: I Have Housing Concerned About Future Housing: No Difficulty Paying Gas/Electric Bills: No Difficulty Paying for Meds: No Currently Unemployed: No Education: High School Diploma/GED Difficulty w/ Childcare or Family Care: No Spiritual care concerns: No Exam Narrative: GENERAL: Appears older than state age, mildly disheveled. No acute distress. HEAD: Normocephalic, atraumatic. ENT: Diffuse dental decay. RESPIRATORY: Airway patent, respirations nonlabored. CARDIOVASCULAR: Regular rate and rhythm. Pedal pulses 2+ bilaterally. MUSCULOSKELETAL: Moves all extremities. No gross deformities. Sensation intact throughout BLE. No significant focal tenderness to palpation throughout lower extremities. Capillary refill intact and less than 2sec throughout toes bilaterally. Toes/feet warm and dry bilaterally. No evidence of swelling or compartment syndrome. Scattered chronic wounds to bilateral lower extremities with hardened black scabs/superficial skin necrosis. No evidence of acute wounds, drainage, erythema/warmth surrounding wounds. SKIN: Warm, dry, normal color. NEURO: A&O X3. Speech clear. Cranial nerves II-XII grossly intact. No ataxic movements. PSYCHIATRIC: Appropriate mood and affect. Normal interaction. Course Vital Signs Vital signs: Vital Signs Temperature 97.6 F 11/03/23 20:39 Pulse Rate 90 11/03/23 20:39 Respiratory Rate 15 11/03/23 20:39 Blood Pressure 172/87 H 11/03/23 20:39 Pulse Oximetry 100 11/03/23 20:39 Oxygen Delivery Room Air 11/03/23 20:39 Temperature 97.6 F 11/03/23 20:39 Pulse Rate 82 11/04/23 02:47 Respiratory Rate 16 11/04/23 02:47 Blood Pressure 180/79 H 11/04/23 02:47 Pulse Oximetry 100 11/04/23 02:47 Oxygen Delivery Room Air 11/03/23 20:39 MDM - Extremity Injury (Lower) MDM Narrative Medical decision m
[2023-11-03] MEDS: IBUPROFEN 600 MG TABLET PO (22:28)
[2023-11-03] MEDS: ACETAMINOPHEN 500 MG TABLET 1000 MG PO (22:28)
--- NOTE | 2023-11-03 23:03 | PC.NURSE ---
care and report given to SHLOMO Zhang. all questions answered.
--- NOTE | 2023-11-04 00:11 | PC.NURSE ---
When this RN went in to discuss discharge paperwork with patient, patient states I am going to kill myself . When patient is asked his plan he states if you send me home, I am going to kill myself . Provider notified of patient statements.
--- NOTE | 2023-11-04 00:20 | PC.NURSE ---
Assumed care of pt from SHLOMO Zhang at this time.
[2023-11-04 00:52] LABS: Basophils Percent Auto 0.6 % (0.2-1.2); Eosinophils Absolute Auto 0.1 K/mm3 (0-0.3); Eosinophils Percent Auto 1.1 % (0-4.4); Hematocrit 36.3 % (42.0-52.0); Hemoglobin 11.5 g/dL (14.0-18.0); Immature Granulocyte Absolute 0.01 K/mm3 (0.00-0.031); Immature Granulocyte Percent A 0.2 % (0-0.5); Lymphocytes Absolute Auto 0.82 K/mm3 (0.9-3.2); Lymphocytes Percent Auto 15.5 % (18.3-44.2); Mean Corpuscular HGB Conc 31.7 g/dl (32-36); Mean Corpuscular Hemoglobin 26.4 pg (26-34); Mean Corpuscular Volume 83.3 fl (80-100); Mean Platelet Volume 10.3 fl (7.4-10.4); Monocytes Absolute Auto 0.2 K/mm3 (0.1-0.6); Monocytes Percent Auto 2.8 % (2.6-8.5); Neutrophils Absolute Auto 4.2 K/mm3 (1.3-6.7); Neutrophils Percent Auto 79.8 % (45.5-73.1); Platelet Count Result 145 k/mm3 (150-375); Red Blood Count 4.36 M/mm3 (4.6-6.20); Red Cell Distribution Width 14.2 % (11.5-14.5); White Blood Count 5.3 K/mm3 (4.5-10.0)
[2023-11-04 00:55] LABS: Appearance Urine Clear (Clear); Bilirubin Urine Negative (Negative); Blood Urine Negative (Negative); Color Urine Yellow (Yellow); Glucose Urine UA Negative (Negative); Ketones Urine Negative (Negative); Leukocyte Esterase Ur Negative LEU/UL (Negative); Nitrate Urine Negative (Negative); Protein Urine Negative (Negative); Specific Grav Ur 1.013 (1.001-1.035); Urobilinogen Urine 0.2 mg/dL (<2.0); pH Urine 7.5 (5.0-9.0)
[2023-11-04 01:02] LABS: Acetaminophen < 10 ug/mL (10-30); Ethanol < 10 mg/dL (<10); Salicylate < 1.0 mg/dL (2-20)
[2023-11-04 01:03] LABS: Alanine Aminotransferase 46 U/L (6-50); Alkaline Phosphatase 100 U/L (38-126); Anion Gap 10 mmol/L (8-16); Aspartate Amino Transferase 58 U/L (17-59); Bilirubin,Total 0.5 mg/dL (0.2-1.3); Blood Urea Nitrogen 13 mg/dL (9-20); Calcium 9.6 mg/dL (8.4-10.2); Carbon Dioxide 23 mmol/L (22-30); Chloride 106 mmol/L (98-107); Estimated CRCL calculation 124 ml/min; Estimated Glomerular Filt Rate > 60; Glucose 202 mg/dL (65-110); Potassium 3.6 mmol/L (3.4-5.0); Sodium 139 mmol/L (137-145)
[2023-11-04 01:06] LABS: Add Urine Microscopic? NO
[2023-11-04 01:12] LABS: Amphetamine Screen Urine Negative (Negative); Barbiturate Screen Urine Negative (Negative); Benzodiazepines Screen Urine Negative (Negative); Cannabinoid Screen Urine Negative (Negative); Cocaine Screen Urine Negative (Negative); Methadone Screen Urine Negative (Negative); Opiate Screen Urine Negative (Negative); Phencyclidine Screen Urine Negative (Negative)
[2023-11-04 01:33] LABS: Thyroid Stimulating Hormone 0.163 uIU/mL (0.465-4.680)
[2023-11-04 01:51] LABS: Influenza A QL RT-PCR Negative (Negative); Influenza B QL RT-PCR Negative (Negative); RSV RNA, RT-PCR Negative (Negative); SARS-CoV-2 RNA PCR Negative (Negative)
[2023-11-04 02:06] LABS: Free T4 Free Thyroxine 1.13 ng/mL (0.78-2.19)
[2023-11-04 02:47] VITALS: BP 180/79; PULSE 82; RESP 16; O2SAT 100
== END 2023-11-04 03:07 | disposition home or self-care (01) ==
PROVIDERS: Emergency Provider Physician Assistant; PCP Emergency Medicine
DX: M79.605 Pain in left leg (principal); M79.604 Pain in right leg; G89.29 Other chronic pain; S81.802A Unspecified open wound, left lower leg, initial encounter; S81.801A Unspecified open wound, right lower leg, initial encounter; R45.851 Suicidal ideations; R79.89 Other specified abnormal findings of blood chemistry; X58.XXXA Exposure to other specified factors, initial encounter; E11.9 Type 2 diabetes mellitus without complications; F17.290 Nicotine dependence, other tobacco product, uncomplicated; Z20.822 Contact with and (suspected) exposure to COVID-19
CPT/HCPCS: 36415; 80053; 80307; 81003; 84439; 84443; 85025; 87637; 99284; A9270